=== PATIENT | female | born 1935 | race Caucasian/White ===

== ENCOUNTER → 2017-12-24 09:00 | Outpatient (CLI) | payer MEDICARE, SELFPAY ==
[2017-12-24 10:18] LABS: Erythrocyte Sedimentation Rate 45 mm/hr (0-30)
[2017-12-24 10:21] LABS: Absolute Lymphocyte Count 2.14 X10^3/ul (0.83-4.51); Absolute Neutrophil Count 2.6 X10^3/uL (2.0-7.7); Basophil# 0.02 X10^3/uL; Basophil% 0.4 % (0-1); Eosinophil# 0.08 X10^3/uL; Eosinophils% 1.5 % (0-5); Hematocrit 37.4 % (37-47); Hemoglobin 12.3 g/dl (12.0-15.0); Lymphocyte # 2.14 X10^3/ul (4.0); Lymphocyte % 39.9 % (19-41); Mean Corp Hgb Conc 32.9 g/gl (32-36); Mean Corpuscular Hgb 31.2 pg (27.0-32.0); Mean Corpuscular Volume 94.9 fL (81-99); Mean Platelet Vol. 10.8 fl (6.2-12.0); Monocyte# 0.54 X10^3/uL; Monocyte% 10.1 % (0-10); Neutrophil # 2.57 X10^3/uL (2.7-7.7); Neutrophil % 47.9 % (47-70); POSITIVE COUNT NO; POSITIVE DIFFERENTIAL NO; POSITIVE MORPHOLOGY NO; Platelet Count 207 K/mm3 (150-450); RBC Distribution Width CV 13.9 % (11.6-14.6); RBC Distribution Width SD 46.6 fl (35.1-43.9); Red Blood Count 3.94 M/mm3 (4.2-5.4); White Blood Count 5.4 K/mm3 (4.4-11.0)
[2017-12-24 10:35] LABS: Hemoglobin A1c 6.3 % (4.2-6.3)
[2017-12-24 10:45] LABS: PTHIN 90.8 pg/mL (18.4-80.1)
[2017-12-24 10:48] LABS: AST(SGOT) 18 U/L (15-37); Alanine Aminotransfer ALT/SGPT 21 U/L (13-56); Albumin, Serum 3.7 g/dL (3.2-5.0); Alkaline Phosphatase 112 U/L (45-117); Anion Gap 9 (5-15); BUN 15 mg/dL (7-18); BUN/Creat Ratio 15.8 RATIO (10-20); CRP 5.74 mg/L (0.0-3.0); Calcium,Total 10.2 mg/dL (8.5-10.1); Chloride 108 mmol/L (98-107); Creatinine, Serum 0.95 mg/dL (0.55-1.02); EST Glomerular Filtration Rate 60 mL/min (>60); Est Glom Filt Rate - Afr Amer 72 mL/min (>60); Ferritin 55 ng/mL (8-252); Globulin 3.6 g/dL (2.2-4.2); Glucose 116 mg/dL (74-106); Potassium 4.3 mmol/L (3.5-5.1); Protein, Total 7.3 g/dL (6.4-8.2); Rheumatoid Factor < 10.0 IU/mL (<15); Sodium Level 140 mmol/L (136-145); Uric Acid 5.9 mg/dL (2.6-6.0)
[2017-12-25 15:48] LABS: ANTINUCLEAR ANTIBODIES DIRECT Negative (Negative)
== END ==
PROVIDERS: Family Provider Family Medicine; PCP Family Medicine; Visit Provider Family Medicine
DX: E11.9 Type 2 diabetes mellitus without complications (principal); M19.90 Unspecified osteoarthritis, unspecified site
CPT/HCPCS: 80053; 82728; 83036; 83970; 84550; 85025; 85652; 86038; 86140; 86431

== ENCOUNTER → 2018-02-08 12:44 | Outpatient (CLI) | payer MEDICARE, SELFPAY ==
--- NOTE | 2018-02-08 14:27 | PFTCOMP ---
COMPLETE PULMONARY FUNCTION TEST INTERPRETATION Brief HPI: Patient is an 82 year old female, currently under the care of myself, who presents to [facility] for complete pulmonary function tests secondary to diagnosis of pulmonary hypertension. Respiratory therapist reports good effort and reproducible results. Interpretation: Forced expiration spirometry shows no large airways obstructive ventilatory defect with an FEV1 of 127% predicted. There is no significant bronchodilator response by ATS criteria. Spirograms are of good quality and plateau normally. The respiratory flow volume loop shows a normal pattern. Lung volumes by body plethysmography show a normal total lung capacity at 4.27 L, 122% predicted. All other lung volumes are within normal limits. Diffusion capacity by carbon monoxide is at the lower limit of normal at 71% predicted. The airway resistance is normal. Compared to previous pulmonary function tests from 06/14/2016, there has been no significant change. Impression: These pulmonary function tests are grossly within normal limits. There is no significant change compared to previous.
== END ==
PROVIDERS: Family Provider Family Medicine; PCP Family Medicine; Visit Provider Internal Medicine Critical Care Medicine
DX: I27.20 Pulmonary hypertension, unspecified (principal)
CPT/HCPCS: 94060; 94726; 94729

== ENCOUNTER → 2018-02-11 12:18 | Outpatient (CLI) | payer MEDICARE, SELFPAY ==
[2018-02-11 12:42] VITALS: PULSE 69; PULSE 73; PULSE 79; PULSE 85; PULSE 86; PULSE 88; O2SAT 95; O2SAT 96; O2SAT 98
--- NOTE | 2018-02-12 08:34 | WT_ITS ---
PSN 6 Minute Walk Test - 6 Minute Walk Test 6 Minute Walk Test: 6 Minute Walk Test PSN:6-Minute Walk Test Start: 02/11/18 12: 42 Freq: Status: Active Protocol: RESP.6MINW Document 02/11/18 12:42 SHELLEY (Rec: 02/11/18 12:49 SHELLEY [email or web address]) 6 Minute Walk Test Date Performed 02/11/18 Time Performed 12:30 Height 4 ft 10 in Weight: 190 lb Weight in Pounds 190.[address]: Derick Logan Assistive device used: None Pre-test Oxygen Delivery Method Room Air Pulse Ox (%) 96 Pulse Rate (60-100 beats/min) 69 Dyspnea Tyler Scale (0-10) 0.5 Exertion Tyler Scale (6-20) 6 1st minute Oxygen Delivery Method Room Air Pulse Ox (%) 96 Pulse Rate (60-100 beats/min) 79 2nd minute Oxygen Delivery Method Room Air Pulse Ox (%) 96 Pulse Rate (60-100 beats/min) 85 3rd minute Oxygen Delivery Method Room Air Pulse Ox (%) 96 Pulse Rate (60-100 beats/min) 86 4th minute Oxygen Delivery Method Room Air Pulse Ox (%) 96 Pulse Rate (60-100 beats/min) 86 Number of Rests Taken 1 5th minute Oxygen Delivery Method Room Air Pulse Ox (%) 95 Pulse Rate (60-100 beats/min) 86 6th minute Oxygen Delivery Method Room Air Pulse Ox (%) 96 Pulse Rate (60-100 beats/min) 88 Dyspnea Tyler Scale (0-10) 3 Exertion Tyler Scale (6-20) 13 Post-test Oxygen Delivery Method Room Air Pulse Ox (%) 98 Pulse Rate (60-100 beats/min) 73 Full Laps Walked 12 Partial Lap, Number of Tiles Walked 15 Total Distance Walked (ft) 723 - Interpretation Interpretation: The patient ambulated 723 feet over the course of 6 minutes beginning on room air without assistive devices or breaks. Pretesting oxygen saturation was noted to be 96% on room air. With ambulation, the heike oxygen saturation was 95%. There was no significant exertional oxygen desaturation noted. - Recommendations Recommendations: There is no indication for the use of supplemental oxygen at this time.
== END ==
PROVIDERS: Family Provider Family Medicine; PCP Family Medicine; Visit Provider Internal Medicine Critical Care Medicine
DX: I27.20 Pulmonary hypertension, unspecified (principal)
CPT/HCPCS: 94618

== ENCOUNTER → 2018-04-12 12:37 | Outpatient (CLI) | payer MEDICARE, SELFPAY ==
--- NOTE | 2018-04-12 12:48 | CDU_ITS ---
Reason For Study: CAROTID BRUIT Rt. Velocities/BP Lt. Velocities/BP Prox CCA 45.2/10.6 cm/sec. Prox CCA 62.1/11.4 cm/sec. Mid CCA 39.3/9.43 cm/sec. Mid CCA 52.2/9.82 cm/sec. Dist CCA 40.1/10.6 cm/sec. Dist CCA 40.1/8.64 cm/sec. Prox ICA 43.6/11.8 cm/sec. Prox ICA 85.6/20.5 cm/sec. Mid ICA 56.0/13.5 cm/sec. Mid ICA 72.7/19.3 cm/sec. Dist ICA 96.7/24.0 cm/sec. Dist ICA 84.4/18.8 cm/sec. Rt. ICA/CCA = 96.7/39.3=2.4. Lt. ICA/CCA = 85.6/52.2=1.6. Prox ECA 66.3/8.79 cm/sec. Prox ECA 75.0/7.62 cm/sec. Rt. Vert. 38.1/10.2 cm/sec. Lt. Vert. 28.8/6.19 cm/sec. Right Extracranial There is no significant atherosclerotic plaque noted in the right common carotid artery. There is intimal thickening but no significant atherosclerotic plaque noted in the right internal carotid artery. The tortuous nature of the right internal carotid artery may result in flow velocities overestimating the degree of stenosis. There is no significant atherosclerotic plaque noted in the right external carotid artery. Antegrade flow is noted in the right vertebral artery. There is heterogeneous, irregular atherosclerotic plaque noted in the right bulb. Left Extracranial There is no significant atherosclerotic plaque noted in the left common carotid artery. There is homogeneous, smooth atherosclerotic plaque noted in the left internal carotid artery. The tortuous nature of the left internal carotid artery may result in flow velocities overestimating the degree of stenosis. There is intimal thickening but no significant atherosclerotic plaque noted in the left external carotid artery. Antegrade flow is noted in the left vertebral artery. There is heterogeneous, irregular atherosclerotic plaque noted in the left bulb. Procedure Carotid Duplex [id number]. The exam was diagnostic. Exam performed in department. 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 Moderate calcific plague at the proximal left internal carotid with <50% stenosis. Normal flow bilateral external carotids Patent and antegrade vertebrals bilaterally Ordering Physician: New Martinez Referring Physician: New Martinez Performed By: Caro Woodard, KEVIN, RVT
== END ==
PROVIDERS: Family Provider Family Medicine; PCP Family Medicine; Referring Provider Family Medicine; Visit Provider Family Medicine
DX: R09.89 Other specified symptoms and signs involving the circulatory and respiratory systems (principal)
CPT/HCPCS: 93880

== ENCOUNTER → 2018-07-05 10:13 | Outpatient (CLI) | payer MEDICARE, SELFPAY ==
[2018-02-25 12:29] VITALS: BMI 40.1
[2018-07-05 12:59] LABS: Microalbumin,Random Urine 27.4 mg/L (NO RANGE EST.); Microalbumin:Creatinine Ratio 15.1 mg/g CRE (<30 mg/g CRE)
[2018-07-05 17:32] LABS: Amphetamine Urine VISTA NEGATIVE (<1000 ng/mL); Barbiturate Urine VISTA NEGATIVE (< 200 ng/mL); Benzodiazepine Urine VISTA NEGATIVE (< 200 ng/mL); Cocaine Urine VISTA NEGATIVE (< 300 ng/mL); Ecstacy Urine VISTA NEGATIVE (< 500 ng/mL); Methadone Urine VISTA NEGATIVE (< 300 ng/mL); PCP Urine VISTA NEGATIVE (< 25 ng/mL); THC Urine VISTA NEGATIVE (< 50 ng/mL); Vista UDS pH Range 7
== END ==
PROVIDERS: Family Provider Family Medicine; PCP Family Medicine; Visit Provider Family Medicine
DX: I10 Essential (primary) hypertension (principal); G89.4 Chronic pain syndrome
CPT/HCPCS: 80307; 82043; 82570

== ENCOUNTER → 2018-07-19 12:58 | Outpatient (CLI) | payer MEDICARE, SELFPAY ==
--- NOTE | 2018-07-19 13:02 | CT_ITS ---
STUDY: CT LEFT SHOULDER REASON FOR EXAM: Female, 82 years old. Left shoulder arthritis RADIATION DOSAGE (If Supplied By Facility): CTDIvol = ( 56.99 ) mGy, DLP = ( 1139.21 ) mGycm TECHNIQUE: The patient was scanned in a multi detector CT scanner. High resolution transaxial imaging was performed without the administration of intravenous contrast material. Sagittal and coronal images were reconstructed. Individualized dose optimization techniques were used for this CT. COMPARISON: None. FINDINGS: There is severe osteoarthritis, with severe articular joint space narrowing, osteoarthritic spurring, articular remodeling, and with articular erosions. Subchondral degenerative cysts of the humeral head measure up to 1.0 cm. Subcortical sclerosis and cyst formation of the glenoid also identified with bony remodeling along the inferior margin. No fracture is seen. Normal coracoid process. Normal visualized lateral clavicle. There is severe hypertrophic osteoarthritis with prominent osseous hypertrophy, with a potential for impingement upon the supraspinatus muscle. There are calcifications in the supraspinatus compatible with calcific tendinosis. Intra-articular calcific loose bodies are also identified. The heart is mildly enlarged. CT/Extremity Upper without Contra IMPRESSION: 1. Advanced glenohumeral joint arthrosis with large subchondral cyst formation. Given severity and intra-articular/synovial calcifications/loose bodies, possibility of rheumatoid arthritis should be considered, although this could also represent severe osteoarthritis. 2. Calcific tendinitis of the rotator cuff, particularly supraspinatus. 3. Severe hypertrophic acromioclavicular joint arthrosis. Electronically Signed: Reece Stoner MD at 20:54 EST , Service support ,
--- NOTE | 2018-07-19 13:03 | CT_ITS ---
STUDY: CT RIGHT SHOULDER REASON FOR EXAM: Female, 82 years old. Right shoulder arthritis RADIATION DOSAGE (If Supplied By Facility): CTDIvol = ( 56.31 ) mGy, DLP = ( 1104.66 ) mGycm TECHNIQUE: The patient was scanned in a multi detector CT scanner. High resolution transaxial imaging was performed without the administration of intravenous contrast material. Sagittal and coronal images were reconstructed. Individualized dose optimization techniques were used for this CT. COMPARISON: None. FINDINGS: There is severe osteoarthritis, with severe articular joint space narrowing, osteoarthritic spurring, articular remodeling, and with articular erosions. Subchondral degenerative cysts of the humeral head measures 1.6 cm. Subcortical sclerosis and cyst formation of the glenoid also identified with bony remodeling along the inferior margin. No fracture is seen. Normal coracoid process. Normal visualized lateral clavicle. There is severe hypertrophic osteoarthritis with prominent osseous hypertrophy, with a potential for impingement upon the supraspinatus muscle. There are calcifications in the supraspinatus compatible with calcific tendinosis. Intra-articular calcific loose bodies are also identified. CT/Extremity Upper without Contra IMPRESSION: 1. Advanced glenohumeral joint arthrosis with large subchondral cyst formation. Given severity and intra-articular/synovial calcifications/loose bodies, possibility of rheumatoid arthritis should be considered, although this could also represent severe osteoarthritis. 2. Calcific tendinitis of the rotator cuff, particularly supraspinatus. 3. Severe hypertrophic acromioclavicular joint arthrosis. Electronically Signed: Reece Stoner MD at 20:52 EST , Service support ,
== END ==
PROVIDERS: Family Provider Family Medicine; PCP Family Medicine; Referring Provider Specialist; Visit Provider Specialist
DX: M19.011 Primary osteoarthritis, right shoulder (principal); M19.012 Primary osteoarthritis, left shoulder
CPT/HCPCS: 73200

== ENCOUNTER → 2018-07-31 08:14 | Outpatient (CLI) | payer MEDICARE, SELFPAY ==
[2018-07-31 10:21] LABS: Absolute Lymphocyte Count 1.88 X10^3/ul (0.83-4.51); Absolute Neutrophil Count 2.7 X10^3/uL (2.0-7.7); Basophil# 0.02 X10^3/uL; Basophil% 0.4 % (0-1); Eosinophil# 0.06 X10^3/uL; Eosinophils% 1.1 % (0-5); Hematocrit 39.5 % (37-47); Hemoglobin 12.7 g/dl (12.0-15.0); Lymphocyte # 1.88 X10^3/ul (4.0); Mean Corp Hgb Conc 32.2 g/gl (32-36); Mean Corpuscular Hgb 30.8 pg (27.0-32.0); Mean Corpuscular Volume 95.6 fL (81-99); Mean Platelet Vol. 11.3 fl (6.2-12.0); Monocyte# 0.55 X10^3/uL; Monocyte% 10.5 % (0-10); Neutrophil % 51.8 % (47-70); Platelet Count 207 K/mm3 (150-450); RBC Distribution Width CV 13.7 % (11.6-14.6); RBC Distribution Width SD 45.9 fl (35.1-43.9); Red Blood Count 4.13 M/mm3 (4.2-5.4); White Blood Count 5.2 K/mm3 (4.4-11.0)
[2018-07-31 10:24] LABS: POSITIVE COUNT NO; POSITIVE DIFFERENTIAL NO; POSITIVE MORPHOLOGY NO
[2018-07-31 10:44] LABS: Hemoglobin A1c 6.8 % (4.2-6.3)
[2018-07-31 10:48] LABS: AST(SGOT) 18 U/L (15-37); Alanine Aminotransfer ALT/SGPT 22 U/L (13-56); Albumin, Serum 3.6 g/dL (3.2-5.0); Alkaline Phosphatase 121 U/L (45-117); Anion Gap 6 (5-15); BUN 17 mg/dL (7-18); BUN/Creat Ratio 20.5 RATIO (10-20); Calcium,Total 9.7 mg/dL (8.5-10.1); Chloride 109 mmol/L (98-107); Cholesterol 144 mg/dL (200); Creatinine, Serum 0.83 mg/dL (0.55-1.02); EST Glomerular Filtration Rate 70 mL/min (>60); Est Glom Filt Rate - Afr Amer 85 mL/min (>60); Globulin 3.6 g/dL (2.2-4.2); Glucose 124 mg/dL (74-106); High Density Lipoprotein 51 mg/dL; Potassium 4.3 mmol/L (3.5-5.1); Protein, Total 7.2 g/dL (6.4-8.2); Sodium Level 138 mmol/L (136-145); Triglycerides 170 mg/dL; Very Low Density Lipoprotein 34 mg/dL (5-40)
== END ==
PROVIDERS: Family Provider Family Medicine; PCP Family Medicine; Referring Provider Family Medicine; Visit Provider Family Medicine
DX: E11.9 Type 2 diabetes mellitus without complications (principal); J30.9 Allergic rhinitis, unspecified
CPT/HCPCS: 36415; 80053; 80061; 83036; 85025

== ENCOUNTER → 2018-08-19 13:45 | Outpatient (CLI) | payer MEDICARE, SELFPAY ==
[2018-08-19 16:15] LABS: M R Staph aureus DNA By PCR POSITIVE (Negative); Probe Check PASS; Staph aureus DNA By PCR POSITIVE (Negative)
== END ==
PROVIDERS: Family Provider Family Medicine; PCP Family Medicine; Visit Provider Family Medicine
DX: J34.0 Abscess, furuncle and carbuncle of nose (principal)
CPT/HCPCS: 87640

== ENCOUNTER → 2018-08-29 08:28 | Outpatient (CLI) | payer MEDICARE, SELFPAY ==
[2018-08-29 13:36] LABS: M R Staph aureus DNA By PCR POSITIVE (Negative); Probe Check PASS
== END ==
PROVIDERS: Family Provider Family Medicine; PCP Family Medicine; Referring Provider Family Medicine; Visit Provider Family Medicine
DX: J34.0 Abscess, furuncle and carbuncle of nose (principal); J34.89 Other specified disorders of nose and nasal sinuses
CPT/HCPCS: 87070; 87205; 87641

== ENCOUNTER → 2018-09-09 | Outpatient (CLI) | payer MEDICARE, SELFPAY ==
[2018-09-09 17:15] LABS: M R Staph aureus DNA By PCR Negative (Negative); Probe Check PASS; Specimen Processing Control PASS
== END | disposition home or self-care (01) ==
LOC: MFPLAB 13:36
PROVIDERS: Family Provider Family Medicine; PCP Family Medicine; Visit Provider Family Medicine
DX: A49.02 Methicillin resistant Staphylococcus aureus infection, unspecified site (principal)
CPT/HCPCS: 87641

== ENCOUNTER → 2019-03-05 | Outpatient (CLI) | payer MEDICARE, SELFPAY ==
[2019-02-10 07:58] VITALS: BMI 39.9
[2019-03-05 10:05] LABS: Hematocrit 37.4 % (37-47); Hemoglobin 11.8 g/dL (12.0-15.0); Mean Corp Hgb Conc 31.6 g/dL (32-36); Mean Corpuscular Hgb 29.6 pg (27.0-32.0); Mean Corpuscular Volume 93.7 fL (81-99); Mean Platelet Vol. 10.5 fl (6.2-12.0); Platelet Count 204 K/mm3 (150-450); RBC Distribution Width CV 14.4 % (11.6-14.6); RBC Distribution Width SD 49.8 fl (35.1-43.9); Red Blood Count 3.99 M/mm3 (4.2-5.4)
[2019-03-05 10:20] LABS: AST(SGOT) 18 U/L (15-37); Alanine Aminotransfer ALT/SGPT 23 U/L (13-56); Albumin, Serum 3.5 g/dL (3.2-5.0); Alkaline Phosphatase 133 U/L (45-117); Anion Gap 9 (5-15); BUN 23 mg/dL (7-18); BUN/Creat Ratio 27.7 RATIO (10-20); Calcium,Total 10.1 mg/dL (8.5-10.1); Chloride 109 mmol/L (98-107); Creatinine, Serum 0.83 mg/dL (0.55-1.02); EST Glomerular Filtration Rate 70 mL/min (>60); Est Glom Filt Rate - Afr Amer 84 mL/min (>60); Globulin 3.5 g/dL (2.2-4.2); Glucose 150 mg/dL (74-106); Potassium 4.2 mmol/L (3.5-5.1); Sodium Level 142 mmol/L (136-145)
== END | disposition home or self-care (01) ==
LOC: MFPLAB 08:38
PROVIDERS: Family Provider Family Medicine; PCP Family Medicine; Visit Provider Family Medicine
DX: Z01.818 Encounter for other preprocedural examination (principal); E11.9 Type 2 diabetes mellitus without complications
CPT/HCPCS: 36415; 80053; 84443; 85027

== ENCOUNTER → 2019-04-11 | Outpatient (CLI) | payer MEDICARE, SELFPAY ==
[2019-02-10 07:58] VITALS: BMI 39.9
[2019-04-16 11:46] LABS: Egg, White 0.77 kU/L (Class II); Egg, Yolk 0.14 kU/L (Class 0/I)
== END | disposition home or self-care (01) ==
LOC: MTLAB 14:36
PROVIDERS: Family Provider Family Medicine; PCP Family Medicine; Referring Provider Otolaryngology Otolaryngology/Facial Plastic Surgery; Visit Provider Otolaryngology Otolaryngology/Facial Plastic Surgery
DX: T78.40XA Allergy, unspecified, initial encounter (principal)
CPT/HCPCS: 36415; 86003

== ENCOUNTER → 2019-06-02 14:20 | Outpatient (CLI) | payer MEDICARE, SELFPAY ==
[2019-06-02 13:21] VITALS: BMI 39.6
== END ==
PROVIDERS: Family Provider Family Medicine; PCP Family Medicine; Referring Provider Nurse Practitioner Acute Care; Visit Provider Nurse Practitioner Acute Care
DX: J18.9 Pneumonia, unspecified organism (principal)
CPT/HCPCS: 87070; 87077; 87205

== ENCOUNTER → 2019-06-23 12:27 | Outpatient (CLI) | payer MEDICARE, SELFPAY ==
[2019-06-02 13:21] VITALS: BMI 39.6
--- NOTE | 2019-06-23 12:28 | ECHOCS_ITS ---
Reason For Study: PHTN Procedure This was a 2D Doppler, Color Flow transthoracic echocardiogram. The study was technically difficult. Contrast injection was performed. Exam performed in department. Left Ventricle Normal LV size. Mild concentric left ventricular hypertrophy. Left ventricular systolic function is normal. The estimated ejection fraction is 60 %. No regional wall motion abnormalities noted. Right Ventricle Normal RV size. Normal systolic function. Atria Normal left atrium. Normal right atrium. Mitral Valve Normal mitral valve. Tricuspid Valve Normal tricuspid valve. Mild (1+) tricuspid valve insufficiency. Pulmonary artery systolic pressure is 28 mmHg. Aortic Valve Peak aortic valve gradient 48 mmHg. Mean aortic valve gradient 17 mmHg. Pulmonic Valve Normal pulmonic valve. Great Vessels Normal aortic root. The pulmonary artery is normal size. Normal inferior vena cava. Pericardium/Pleural No pericardial effusion. Medication 22 gauge I.V. with prn adaptor inserted into left arm. Diluted definity 2ml given slow IV push to enhance endocardial definition. MMode/2D Measurements & Calculations LVIDd: 4.6 cm IVSd: 1.2 cm LVOT diam: 2.0 cm LVIDs: 2.5 cm LVPWd: 1.2 cm FS: 45.3 % LVOT area: 3.1 cm2 LA dimension: 4.4 cm LAV(MOD-sp4): 33.3 ml LA A4 area: 15.2 cm2 RA A4 area: 17.1 cm2 Time Measurements MV dec time: 0.26 sec Doppler Measurements & Calculations MV E max jensen: 73.7 cm/sec Lat Peak E' Jensen: 6.6 cm/sec Med Peak E' Jensen: 7.2 cm/sec MV A max jensen: 87.1 cm/sec E/E' lat: 11.1 E/E' med: 10.2 MV E/A: 0.85 MV V2 max: 111.7 cm/sec MV P1/2t max jensen: 111.7 cm/sec Ao V2 max: 346.4 cm/sec MV max P.0 mmHg MV P1/2t: 67.3 msec Ao max P.0 mmHg MV V2 mean: 53.0 cm/sec MV dec slope: 486.4 cm/sec2 Ao V2 mean: 175.2 cm/sec MV mean P.4 mmHg Ao mean P.8 mmHg MV V2 VTI: 40.1 cm MVA(P1/2t): 3.3 cm2 Ao V2 VTI: 83.5 cm MVA(VTI): 2.4 cm2 HERBERT(I,D): 1.1 cm2 HERBERT(V,D): 1.1 cm2 AI max jensen: 383.1 cm/sec LV V1 max: 118.4 cm/sec SV(LVOT): 95.2 ml AI max P.7 mmHg LV V1 max P.6 mmHg AI dec slope: 133.8 cm/sec2 LV V1 mean P.7 mmHg AI P1/2t: 838.6 msec LV V1 mean: 76.6 cm/sec LV V1 VTI: 30.3 cm PA V2 max: 84.7 cm/sec TR max jensen: 247.9 cm/sec TR max P.6 mmHg Interpretation Summary Normal LV size. Mild concentric left ventricular hypertrophy. Left ventricular systolic function is normal. The estimated ejection fraction is 60 %. Mild (1+) tricuspid valve insufficiency. Contrast injection was performed. Ordering Physician: Derick Logan Referring Physician: New Martinez Performed By: Bridger Skelton RCS
== END ==
PROVIDERS: Family Provider Family Medicine; PCP Family Medicine; Referring Provider Internal Medicine Critical Care Medicine; Visit Provider Internal Medicine Critical Care Medicine
DX: I27.20 Pulmonary hypertension, unspecified (principal); G47.33 Obstructive sleep apnea (adult) (pediatric); J47.9 Bronchiectasis, uncomplicated; E66.01 Morbid (severe) obesity due to excess calories; Z98.890 Other specified postprocedural states
CPT/HCPCS: 93306; Q9957; A4216; C8929

== ENCOUNTER → 2019-08-05 | Outpatient (CLI) | payer MEDICARE, SELFPAY ==
[2019-08-05 11:17] VITALS: BMI 39.6
--- NOTE | 2019-08-05 12:15 | EKG12_ITS ---
Test Reason : CHEST DISCOMFORT Blood Pressure : / mmHG Vent. Rate : 071 BPM Atrial Rate : 071 BPM P-R Int : 188 ms QRS Dur : 078 ms QT Int : 372 ms P-R-T Axes : 076 032 032 degrees QTc Int : 404 ms Normal sinus rhythm Low voltage QRS Nonspecific ST Abnormality Abnormal ECG Confirmed by CEDRIC ZAMORA, TYLER ([id number]), editor house organ MARIE GALARZA ([id number]) on 08/06/2019 1:42:22 PM Referred By: Chica Morataya Confirmed By:TYLER STEELE MD
--- NOTE | 2019-08-05 12:15 | RAD_ITS ---
HISTORY: CHEST DISCOMFORT, PT STATES PRESSURE FOR A FEW SECONDS AT A TIME BILATERAL, TAKES HBP MEDICATION ADDITIONAL HISTORY: None provided. COMPARISON: 12/01/2014 TECHNIQUE: Frontal and lateral chest radiographs. Number of images including paperwork: 2 FINDINGS: LUNGS AND PLEURA: No consolidation, mass or pleural effusion. Linear bilateral opacities appear similar consistent with scarring. CARDIAC SILHOUETTE: Stable. MEDIASTINUM AND MIGUEL: Stable. UPPER ABDOMEN: Unremarkable. SKELETON AND SOFT TISSUES: No acute findings. Degenerative changes. OTHER DEVICES AND HARDWARE: Partially visualized lumbar hardware and bilateral shoulder prostheses. RAD/Chest PA and Lateral IMPRESSION: No acute cardiopulmonary abnormality. at 0329 Reported and signed by: Radhika Velazquez MD Electronically Signed: Radhika Velazquez MD at 3:29 EST Tel , Service support ,
[2019-08-05 13:33] LABS: BNP,B-Type NATRIURETIC PEPTIDE 77.2 pg/mL (0-100)
[2019-08-05 13:48] LABS: Anion Gap 4 (5-15); BUN 30 mg/dL (7-18); Calcium,Total 10.2 mg/dL (8.5-10.1); Chloride 113 mmol/L (98-107); Creatinine, Serum 0.94 mg/dL (0.55-1.02); EST Glomerular Filtration Rate 60 mL/min (>60); Est Glom Filt Rate - Afr Amer 73 mL/min (>60); Ferritin 48 ng/mL (8-252); Glucose 114 mg/dL (74-106); Potassium 4.4 mmol/L (3.5-5.1); Sodium Level 141 mmol/L (136-145)
[2019-08-05 20:32] LABS: Vitamin B12 > 2000 pg/mL (211-911)
== END | disposition home or self-care (01) ==
LOC: LAB 12:15
PROVIDERS: PCP Family Medicine; Referring Provider Nurse Practitioner Acute Care; Visit Provider Nurse Practitioner Acute Care
DX: D64.9 Anemia, unspecified (principal); I50.9 Heart failure, unspecified; R07.89 Other chest pain
CPT/HCPCS: 36415; 71046; 80048; 82607; 82728; 82746; 83880; 93005

== ENCOUNTER → 2019-08-07 | Outpatient (CLI) | payer MEDICARE, SELFPAY ==
[2019-05-27 06:34] VITALS: BMI 39.6
[2019-08-05 11:17] VITALS: BMI 39.6
--- NOTE | 2019-08-07 15:42 | PFTCOMP ---
COMPLETE PULMONARY FUNCTION TEST INTERPRETATION Brief HPI: Patient is an 83 year old female, currently under the care of myself, who presents to [facility] for complete pulmonary function tests secondary to diagnosis of pulmonary hypertension. Respiratory therapist reports good effort and reproducible results. Interpretation: Forced expiration spirometry shows no large airways obstructive ventilatory defect with an FEV1 of 113% predicted. There is a significant bronchodilator response by strict ATS criteria. Spirograms are of good quality and plateau normally. The respiratory flow volume loop shows a normal pattern. Lung volumes by body plethysmography show a normal total lung capacity at 4.3 L, 113% predicted. All other lung volumes are within normal limits. Diffusion capacity by carbon monoxide is normal at 74% predicted. The airway resistance is normal. Compared to previous pulmonary function tests from 02/08/2018, there has been no significant change. Impression: These pulmonary function tests are grossly within normal limits. However, DLCO is at the lower limit of normal and may indicate early pulmonary vascular disorder.
== END | disposition home or self-care (01) ==
LOC: PSN 12:33
PROVIDERS: Family Provider Family Medicine; PCP Family Medicine; Referring Provider Internal Medicine Critical Care Medicine; Visit Provider Internal Medicine Critical Care Medicine
DX: G47.33 Obstructive sleep apnea (adult) (pediatric) (principal); J47.9 Bronchiectasis, uncomplicated; E66.01 Morbid (severe) obesity due to excess calories
CPT/HCPCS: 94060; 94726; 94729

== ENCOUNTER → 2019-11-10 10:19 | Outpatient (CLI) | payer MEDICARE, SELFPAY ==
[2019-11-04 13:42] VITALS: BMI 39.9
--- NOTE | 2019-11-10 10:20 | STEWCON_ITS ---
Reason For Study: Valve Replacement-Eval Stress Results Protocol: Modified Derick Protocol With Definity Maximum Predicted HR: 136 bpm Target HR: 116 bpm % Maximum Predicted HR: 90 % DurationHeart Rate Stage (mm:ss) (bpm) BP Comment Baseline 64 140/70No Chest Pain; 2 ML Diluted Definity Modified Derick Protocol Stage 0 1:51 123 236/74No Chest Pain; Severe Dyspnea Recovery 75 138/72No Chest Pain; No Dyspnea Stress Duration: 1:51 mm:ss Maximum Stress HR: 123 bpm METS: 2 Baseline Echocardiogram Findings The estimated ejection fraction is 65 %. Stress Echo Wall motion Data Resting WM Intermediate WM Stress WM Resting Wall Motion Wall Motion Stress No regional wall motion No regional wall motion abnormalities noted. abnormalities noted. EKG Data The baseline ECG displays normal sinus rhythm. The maximum heart rate attained was 121 beats per minute. This was 90% of maximum predicted heart rate. During stress, there were no ST or T wave changes noted to suggest ischemia. No clinical angina was noted. No arrhythmias noted. MMode/2D Measurements & Calculations LVOT diam: 2.1 cm LVOT area: 3.3 cm2 Doppler Measurements & Calculations Ao V2 max: 390.2 cm/sec LV V1 max: 126.0 cm/sec SV(LVOT): 104.8 ml Ao max P.1 mmHg LV V1 max P.4 mmHg Ao V2 mean: 293.3 cm/sec LV V1 mean P.4 mmHg Ao mean P.8 mmHg LV V1 mean: 85.7 cm/sec Ao V2 VTI: 86.7 cm LV V1 VTI: 31.7 cm HERBERT(I,D): 1.2 cm2 HERBERT(V,D): 1.1 cm2 Interpretation Summary The estimated ejection fraction is 65 %. Normal, adequate, modified Derick treadmill echocardiogram. Negative for ischemia by EKG and echocardiographic criteria. No anginal symptoms noted. No arrhythmias noted. Hypertensive blood pressure response to exercise. Poor exercise capacity for age. Patient had baseline peak and mean aortic valve gradient of 45/26 mmHg, which increased to 79/53 mmHg respectively at peak exercise. Test terminated due to dyspnea. Final LVEF is 75%. Decrease sensitivity due to poor echo windows requiring Definity agent. No complications. The study was technically difficult. Contrast injection was performed. Ordering Physician: Chuck Grayson Referring Physician: New Martinez Performed By: Amirah Menjivar RDCS
== END ==
PROVIDERS: PCP Family Medicine; Referring Provider Internal Medicine Cardiovascular Disease; Visit Provider Internal Medicine Cardiovascular Disease
DX: R01.1 Cardiac murmur, unspecified (principal); I27.20 Pulmonary hypertension, unspecified; R06.00 Dyspnea, unspecified
CPT/HCPCS: 93017; 93350; Q9957; A4216; C8928

== ENCOUNTER 2019-12-31 09:56 | Outpatient (CLI) | payer MEDICARE, SELFPAY ==
[2019-11-04 13:42] VITALS: BMI 39.9
--- NOTE | 2019-12-18 08:30 | RAD_ITS ---
STUDY: X-RAY CHEST REASON FOR EXAM: Female, 84 years old. CARDIAC MURMUR, SOB, WEAKNESS -- HAVING HEART CATH NEXT WEEK TECHNIQUE: PA and lateral views of the chest. COMPARISON: Comparison is made with prior examination dated August 05, 2019. FINDINGS: Stable linear density in the left midlung suggestive of scarring. There is no demonstrated pleural abnormality. Normal size heart. Normal mediastinum and rene. Normal visualized pulmonary arteries. There is atherosclerotic tortuosity of the aortic arch and descending thoracic aorta. There are diffuse degenerative changes of the visualized thoracic spine. Status post screw and blair fixation of the upper lumbar spine. Status post bilateral shoulder replacement. There is no demonstrated abnormality of the visualized soft tissue structures of the upper abdomen. RAD/Chest PA and Lateral IMPRESSION: No acute abnormality is seen. Electronically Signed: Saúl Gaitan, at 11:17 EDT , Service support ,
[2019-12-18 08:57] LABS: Absolute Lymphocyte Count 1.97 X10^3/uL (0.83-4.51); Absolute Neutrophil Count 2.8 X10^3/uL (2.0-7.7); Basophil# 0.05 X10^3/uL; Basophil% 0.9 % (0-1); Eosinophil# 0.07 X10^3/uL; Eosinophils% 1.3 % (0-5); Hematocrit 38.1 % (37-47); Hemoglobin 12.2 g/dL (12.0-15.0); Lymphocyte # 1.97 X10^3/ul (4.0); Lymphocyte % 35.6 % (19-41); Mean Corpuscular Hgb 29.8 pg (27.0-32.0); Mean Corpuscular Volume 92.9 fL (81-99); Mean Platelet Vol. 10.8 fl (6.2-12.0); Monocyte# 0.62 X10^3/uL; Monocyte% 11.2 % (0-10); NRBC Flagged by Analyzer 0 % (0-5); Neutrophil % 50.6 % (47-70); Platelet Count 231 K/mm3 (150-450); RBC Distribution Width CV 13.2 % (11.6-14.6); RBC Distribution Width SD 45.1 fl (35.1-43.9); White Blood Count 5.5 K/mm3 (4.4-11.0)
[2019-12-18 09:17] LABS: International Normalized Ratio 1.1; Prothrombin Time (Protime)PT. 14.1 SECONDS (11.7-14.9)
[2019-12-18 09:40] LABS: AST(SGOT) 21 U/L (15-37); Alanine Aminotransfer ALT/SGPT 22 U/L (13-56); Albumin, Serum 3.8 g/dL (3.2-5.0); Alkaline Phosphatase 138 U/L (45-117); Anion Gap 7 (5-15); BUN 34 mg/dL (7-18); BUN/Creat Ratio 34.6 RATIO (10-20); Bilirubin, Direct 0.15 mg/dL (0.00-0.30); Calcium,Total 10.1 mg/dL (8.5-10.1); Chloride 108 mmol/L (98-107); Cholesterol 160 mg/dL (200); Creatinine, Serum 0.98 mg/dL (0.55-1.02); EST Glomerular Filtration Rate 57 mL/min (>60); Est Glom Filt Rate - Afr Amer 69 mL/min (>60); Globulin 3.5 g/dL (2.2-4.2); Glucose 144 mg/dL (74-106); High Density Lipoprotein 52 mg/dL; Potassium 4.2 mmol/L (3.5-5.1); Protein, Total 7.3 g/dL (6.4-8.2); Sodium Level 138 mmol/L (136-145); Triglycerides 179 mg/dL; Very Low Density Lipoprotein 36 mg/dL (5-40)
[2019-12-25 11:14] VITALS: BMI 39.9
--- NOTE | 2019-12-26 12:40 | PCM.HP.BLA ---
History and Physical Date of Admission: 12/31/19 [facility] History of Present Illness Details: Mrs. Hayes is a very pleasant 84-year-old female with a history of pulmonary hypertension, hypertension, obstructive sleep apnea currently on BiPAP, diabetes, obesity, carotid artery disease, referred to our office from Dr. Logan for cardiac murmur. To evaluate this murmur she underwent a 2D echocardiogram dated 06/23/2019 which showed the following results: Normal LV size. Mild concentric left ventricular hypertrophy. Left ventricular systolic function is normal. The estimated ejection fraction is 60 %. Mild (1+) tricuspid valve insufficiency. Contrast injection was performed. RVSP of 30 mmHg. Aortic peak and mean gradient of 48 and 17 mmHg respectively given an estimated aortic valve area of 1.1 cm? consistent with at least moderate aortic stenosis. A previous echocardiogram dated 08/29/2016 showed an EF of 65%, mild MR, RVSP of 36 mmHg, and a peak/mean gradient across the aortic valve of 22 and 13 mmHg given an estimated aortic valve area of 1.7 cm?. On further history, the patient has known about a murmur for many years, but has had progressively worsening dyspnea on exertion and shortness of breath particularly in humid days over the last 1 to 2 years. The patient states that she can no longer walk 1 block or 2 flights of stairs without getting profoundly short of breath. She has had no sentinel events of lightheadedness, dizziness, presyncope or syncope. She underwent pulmonary function test on 08/07/2019 which are as follows: These pulmonary function tests are grossly within normal limits. However, DLCO is at the lower limit of normal and may indicate early pulmonary vascular disorder. She continues with dyspnea on exertion, fatigue, and fleeting, zip chest pain. She denies arm, jaw, or neck discomfort. Her exercise tolerance is stable. She denies symptoms of palpitations, lightheadedness, dizziness, near syncope, or syncopal episodes. She denies edema or claudication issues. She denies orthopnea, PND, fever, chills, blood in urine, blood in stool, or myalgia. Intake Vital Signs 12/25/19 Height 4 ft 10 in 12/25/19 Weight: 155 lb 12/25/19 BMI 32.3 12/25/19 BP 142/62 H 07/23/20 Blood Pressure Location Lt brachial 12/25/19 Position Sitting 12/25/19 Respiration 16 12/25/19 Pulse 74 12/25/19 Pulse Source Auscultation Intake Visit Reasons: CONRAD/RHC/LHC Allergies codeine Allergy (Verified 09/03/19 12:09) Unknown egg Allergy (Verified 09/03/19 12:09) Food Allergy lactose Allergy (Verified 09/03/19 12:09) Food Allergy nitrofurantoin macrocrystalline [From Macrodantin] Allergy (Verified 09/03/19 12:09) Unknown Sulfa (Sulfonamide Antibiotics) Allergy (Verified 09/03/19 12:09) Rash Tetracyclines Allergy (Verified 09/03/19 12:09) Anaphylaxis Penicillins Adverse Reaction (Verified 09/03/19 12:09) Other Medications Eplerenone 25 mg PO BID 07/06/15 [History Confirmed 12/25/19] Losartan Potassium [Cozaar] 50 mg PO BID 07/06/15 [History Confirmed 12/25/19] Loratadine [Claritin] 10 mg PO DAILY 08/17/15 [History Confirmed 12/25/19] Acetaminophen [Tylenol Tablet] 650 mg PO Q6H PRN PRN #0 tab 08/25/15 [Rx Confirmed 12/25/19] hydrALAZINE [Apresoline] 25 mg PO TID #90 tab 08/25/15 [Rx Confirmed 12/25/19] Lactobacillus acidophilus 100 million cell capsule 100 mg PO QDAY 09/06/17 [History Confirmed 12/25/19] carboxymethylcellulose sodium 0.5 % eye drops 1 drp OPHTHALMIC QDAY PRN ml 09/06/17 [History Confirmed 12/25/19] gabapentin 300 mg capsule 600 mg PO QHS cap 09/06/17 [History Confirmed 12/25/19] metformin 500 mg tablet 500 mg PO QDAY tab 09/06/17 [History Confirmed 12/25/19] vit A,C and W-uzicre-pnypljpt 1,000 unit-C 200 mg-E 60 unit-lutein 2 mg and minerals tablet 1 tab PO BID 09/06/17 [History Confirmed 12/25/19] albuterol sulfate 90 mcg/actuation aerosol inhaler 2 puff INHALATION Q4H PRN #18 g 02/25/18 [Rx Confirmed 12/25/19] cholecalciferol (vitamin D3) 50 mcg (2,000 unit) capsule 2,000 unit PO TID cap 02/25/18 [History Confirmed 12/25/19] magnesium 250 mg tablet 250 mg PO DAILY 02/25/18 [History Confirmed 12/25/19] mecobalamin (vitamin B12) 1,000 mcg disintegrating tablet,sublingual 1,000 mcg SUBLINGUAL DAILY 02/25/18 [History Confirmed 12/25/19] mupirocin 2 % topical ointment 1 applic TOPICAL TID 08/20/18 [History Confirmed 12/25/19] amlodipine 5 mg tablet 5 mg PO DAILY 11/04/19 [History Confirmed 12/25/19] aspirin 81 mg tablet,delayed release 81 mg PO DAILY 11/04/19 [History Confirmed 12/25/19] furosemide 20 mg tablet 40 mg PO DAILY tab 11/04/19 [History Confirmed 12/25/19] melatonin 5 mg capsule 5 mg PO QHS cap 11/04/19 [History Confirmed 12/25/19] metoprolol succinate 100 mg tablet,extended release 24 hr 100 mg PO DAILY 11/04/19 [History Confirmed 12/25/19] PFSH Social History (Updated 12/25/19 @ 13:05 by ROBIN Shaw) Smoking Status: Never smoker second hand exposure: No alcohol intake: never substance use type: does not use caffeine: Yes what type of physical activity do you participate in: none ROS Const Const: Positive for fatigue; negative for weakness, body ache, fever(s) or chills ENT ENT: Negative for dizziness Cardio Chest Pain: Yes Palpitations: No Edema: Bilateral Muscle aches with walking: None Resp Respiratory: Positive for SOB with activity; negative for SOB at rest, SOB orthopnea\SOB lying down or paroxysmal nocturnal dyspnea GI GI: Negative nausea, vomiting blood/hematemesis, bright, red blood in stools or black,tarry stools : Negative for hematuria or frequent nighttime urination/ nocturia Musc Musc: Negative for muscle aches/ myalgia Skin Skin: Negative non-healing lesions or rash Neuro Neuro: Negative for dizziness, lightheadedness, near syncope, syncope, orthostatic symptoms or weakness Endo Endo: Positive for fatigue Allergy Allergy/Immunology: Negative for rash Cardiology Exam Const Appearance: cooperative, healthy appearing, comfortable and no acute distress Nutritional Appearance: well nourished and obese Orientation: alert, awake and oriented x3 Head Head: normal to inspection Ears: hearing grossly normal bilaterally Nose: external nose normal Face and Sinus: face symmetric Mouth: oral mucosae normal Eyes General: appearance normal, both eyes and all related structures Eyelids: eyelids normal EOM: EOM intact bilaterally Neck Neck: normal visual inspection and no JVD Carotids: normal carotid upstroke Chest Chest inspection: normal inspection of the chest, symmetric chest movement and normal respiratory effort; negative cough Auscultation: Bilateral: Clear to Auscultation Cardio Rate: regular rate Rhythm: regular rhythm Heart sounds: S1 normal, S2 normal and murmur; negative rub or gallop Murmur: Grade 2/6 and RLSB GI GI: normal to inspection and obese Neuro General: alert, awake, oriented x3 and CN's II-XI intact bilaterally Skin Skin: no rashes or lesions noted Extremities Pulses: Normal: Right Posterior Tibial Pulse, Left Posterior Tibial Pulse, Right Radial Pulse, Left Radial Pulse Lower Extremity Edema: None: Bilateral Psych Psychological: normal affect Assessment & Plan 1. Nonrheumatic aortic (valve) stenosis I35.0 Plan Her most recent echocardiogram from 06/23/2019 showed peak aortic valve gradient of 48 mmHg, mean aortic valve gradient of 17 mmHg, and aortic valve area 1.1 cm?. Given patient's ongoing symptoms, it was recommended she undergo a transesophageal echocardiogram to evaluate valve in more detail. Based on results, further recommendation be made. Patient will proceed with left heart catheterization to define coronary artery anatomy to ultimately guide long-term valvular treatment which may include open heart approach or TAVR, depending on results. 2. Pulmonary HTN I27.20 Plan She will proceed with a right heart cath to further assess pulmonary hypertension. Based on results, further recommendation to be made. 3. Hypertension I10 Plan Her blood pressure slightly elevated. This is improved compared to previous. This will need to be addressed based on test results and long-term recommendation. Adjustments may include increasing amlodipine or or hydralazine. 4. Dyspnea on exertion R06.00 Plan This is 1 of her main concern. Is difficult to discern if this is related to underlying aortic valve disease, pulmonary hypertension, or coronary artery disease. She will proceed with testing which will include, transesophageal echocardiogram, right heart catheterization, and left heart catheterization to assess further. Based on results, further recommendation will be made. She was asked to continue with current medical therapy in the interim which includes amlodipine and Lasix. 5. Chest pain, unspecified type R07.9 Plan Her EKG on 12/25/2019 in office showed sinus rhythm at a rate of 61 bpm QTC of [address] or T wave changes. She does describe a fleeting, zip chest discomfort. This is located on both right and left side of her chest. The etiology of this discomfort is unclear. She will proceed with left heart catheterization to assess coronary artery disease component. Additional Comments Thank you for allowing us to participate in the patients plan of care, if you have any questions please do not hesitate to call. This note was generated using a voice recognition system and there may be incorrect words, spelling or punctuation that were not noted when reviewing the office note prior to saving. 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 Moderate calcific plague at the proximal left internal carotid with <50% stenosis. Normal flow bilateral external carotids Patent and antegrade vertebrals bilaterally Echocardiogram 06/23/2019: Interpretation Summary Normal LV size. Mild concentric left ventricular hypertrophy. Left ventricular systolic function is normal. The estimated ejection fraction is 60 %. Mild (1+) tricuspid valve insufficiency. Contrast injection was performed. Stress Echocardiogram 11/10/2019: Interpretation Summary The estimated ejection fraction is 65 %. Normal, adequate, modified Derick treadmill echocardiogram. Negative for ischemia by EKG and echocardiographic criteria. No anginal symptoms noted. No arrhythmias noted. Hypertensive blood pressure response to exercise. Poor exercise capacity for age. Patient had baseline peak and mean aortic valve gradient of 45/26 mmHg, which increased to 79/53 mmHg respectively at peak exercise. Test terminated due to dyspnea. Final LVEF is 75%. Decrease sensitivity due to poor echo windows requiring Definity agent. No complications. The study was technically difficult. Contrast injection was performed. Procedure Criteria Procedure Type: Elective COVID Risk Discussion: The surgeon/proceduralist and patient have discussed in detail the risk of exposure to and/or potential harm posed by the COVID-19 virus with having a surgery/procedure at this time versus the risk of delaying the surgery/procedure. It is not possible to know either the risk of delaying the surgery or procedure or chance of getting an infection with perfect accuracy, but a joint decision was made between the patient and the surgeon/proceduralist to proceed at this time with the scheduled surgery/procedure as indicated on the consent form.
[2019-12-30 10:07] VITALS: BMI 32.3
[2019-12-31 11:56] LABS: Blood Gas Specimen Type VEN; VBG BASE EXCESS 2 mmol/L (-1.0-3.5); VBG Bicarbonate 28 mmol/L (22-26); VBG Oxygen Content 29 mmol/L (23-33); VBG PO2 32 mmHg (25-40); VBG PO2 34 mmHg (25-40); VBG SO2 58 % (50-70); VBG SO2 62 % (50-70); VBG pCO2 48.8 mmHg (41-51); VBG pCO2 49.5 mmHg (41-51); VBG pH 7.35 (7.32-7.42); VBG pH 7.36 (7.32-7.42)
[2019-12-31 12:06] LABS: Base Excess -1 mmol/L (-2 to +2); Bicarbonate 25.5 mmol/L (22-26); Blood Gas Specimen Type ART; PO2 61 mmHG (75-100); SO2 89 % (95-99); Total Carbon Dioxide 27 mmol/L; pH 7.32 (7.35-7.45)
--- NOTE | 2019-12-31 12:08 | HP.PCM_ITS ---
Problem List (1) Hypertensive urgency Status: Acute (2) Murmur, cardiac Status: Acute (3) Post-operative infection Status: Acute Qualifiers: Encounter type: initial encounter (4) Obstructive sleep apnea Status: Chronic (5) Pulmonary HTN Status: Chronic History and Physical Date of Admission: 12/31/19 [facility] Medical Records Department [address] [place] [address] History and Physical 12/26/19 1240 MR#: [id number] Acct: [id number] Name: LASHAE HARRIS Rep #:[id number] : 1935 84 From: Dell HAQUE C PCP: Dr. New Martinez MD Status:PRE CLI Y Location: [facility] History and Physical Date of Admission: 12/31/19 HPI HPI History of Present Illness Details: Mrs. Harris is a very pleasant 84-year-old female with a history of pulmonary hypertension, hypertension, obstructive sleep apnea currently on BiPAP, diabetes, obesity, carotid artery disease, referred to our office from Dr. Logan for cardiac murmur. To evaluate this murmur she underwent a 2D echocardiogram dated 06/23/2019 which showed the following results: Normal LV size. Mild concentric left ventricular hypertrophy. Left ventricular systolic function is normal. The estimated ejection fraction is 60 %. Mild (1+) tricuspid valve insufficiency. Contrast injection was performed. RVSP of 30 mmHg. Aortic peak and mean gradient of 48 and 17 mmHg respectively given an estimated aortic valve area of 1.1 cm? consistent with at least moderate aortic stenosis. A previous echocardiogram dated 08/29/2016 showed an EF of 65%, mild MR, RVSP of 36 mmHg, and a peak/mean gradient across the aortic valve of 22 and 13 mmHg given an estimated aortic valve area of 1.7 cm?. On further history, the patient has known about a murmur for many years, but has had progressively worsening dyspnea on exertion and shortness of breath particularly in humid days over the last 1 to 2 years. The patient states that she can no longer walk 1 block or 2 flights of stairs without getting profoundly short of breath. She has had no sentinel events of lightheadedness, dizziness, presyncope or syncope. She underwent pulmonary function test on 08/07/2019 which are as follows: These pulmonary function tests are grossly within normal limits. However, DLCO is at the lower limit of normal and may indicate early pulmonary vascular disorder. She continues with dyspnea on exertion, fatigue, and fleeting, zip chest pain. She denies arm, jaw, or neck discomfort. Her exercise tolerance is stable. She denies symptoms of palpitations, lightheadedness, dizziness, near syncope, or syncopal episodes. She denies edema or claudication issues. She denies orthopnea, PND, fever, chills, blood in urine, blood in stool, or myalgia. Intake Vital Signs 12/25/19 Height 4 ft 10 in 12/25/19 Weight: 155 lb 12/25/19 BMI 32.3 12/25/19 BP 142/62 H 12/25/19 Blood Pressure Location Lt brachial 12/25/19 Position Sitting 12/25/19 Respiration 16 12/25/19 Pulse 74 12/25/19 Pulse Source Auscultation Intake Visit Reasons: CONRAD/RHC/LHC Allergies codeine Allergy (Verified 09/03/19 12:09) Unknown egg Allergy (Verified 09/03/19 12:09) Food Allergy lactose Allergy (Verified 09/03/19 12:09) Food Allergy nitrofurantoin macrocrystalline [From Macrodantin] Allergy (Verified 09/03/19 12:09) Unknown Sulfa (Sulfonamide Antibiotics) Allergy (Verified 09/03/19 12:09) Rash Tetracyclines Allergy (Verified 09/03/19 12:09) Anaphylaxis Penicillins Adverse Reaction (Verified 09/03/19 12:09) Other Medications Eplerenone 25 mg PO BID 07/06/15 [History Confirmed 12/25/19] Losartan Potassium [Cozaar] 50 mg PO BID 07/06/15 [History Confirmed 12/25/19] Loratadine [Claritin] 10 mg PO DAILY 08/17/15 [History Confirmed 12/25/19] Acetaminophen [Tylenol Tablet] 650 mg PO Q6H PRN PRN #0 tab 08/25/15 [Rx Confirmed 12/25/19] hydrALAZINE [Apresoline] 25 mg PO TID #90 tab 08/25/15 [Rx Confirmed 12/25/19] Lactobacillus acidophilus 100 million cell capsule 100 mg PO QDAY 09/06/17 [History Confirmed 12/25/19] carboxymethylcellulose sodium 0.5 % eye drops 1 drp OPHTHALMIC QDAY PRN ml 09/06/17 [History Confirmed 12/25/19] gabapentin 300 mg capsule 600 mg PO QHS cap 09/06/17 [History Confirmed 12/25/19] metformin 500 mg tablet 500 mg PO QDAY tab 09/06/17 [History Confirmed 12/25/19] vit A,C and K-xcaklo-abrnjiev 1,000 unit-C 200 mg-E 60 unit-lutein 2 mg and minerals tablet 1 tab PO BID 09/06/17 [History Confirmed 12/25/19] albuterol sulfate 90 mcg/actuation aerosol inhaler 2 puff INHALATION Q4H PRN #18 g 02/25/18 [Rx Confirmed 12/25/19] cholecalciferol (vitamin D3) 50 mcg (2,000 unit) capsule 2,000 unit PO TID cap 02/25/18 [History Confirmed 12/25/19] magnesium 250 mg tablet 250 mg PO DAILY 02/25/18 [History Confirmed 12/25/19] mecobalamin (vitamin B12) 1,000 mcg disintegrating tablet,sublingual 1,000 mcg SUBLINGUAL DAILY 02/25/18 [History Confirmed 12/25/19] mupirocin 2 % topical ointment 1 applic TOPICAL TID 08/20/18 [History Confirmed 12/25/19] amlodipine 5 mg tablet 5 mg PO DAILY 11/04/19 [History Confirmed 12/25/19] aspirin 81 mg tablet,delayed release 81 mg PO DAILY 11/04/19 [History Confirmed 12/25/19] furosemide 20 mg tablet 40 mg PO DAILY tab 11/04/19 [History Confirmed 12/25/19] melatonin 5 mg capsule 5 mg PO QHS cap 11/04/19 [History Confirmed 12/25/19] metoprolol succinate 100 mg tablet,extended release 24 hr 100 mg PO DAILY 11/04/19 [History Confirmed 12/25/19] [facility] Social History (Updated 12/25/19 @ 13:05 by ROBIN Shaw) Smoking Status: Never smoker second hand exposure: No alcohol intake: never substance use type: does not use caffeine: Yes what type of physical activity do you participate in: none ROS Const Const: Positive for fatigue; negative for weakness, body ache, fever(s) or chills ENT ENT: Negative for dizziness Cardio Chest Pain: Yes Palpitations: No Edema: Bilateral Muscle aches with walking: None Resp Respiratory: Positive for SOB with activity; negative for SOB at rest, SOB orthopnea\SOB lying down or paroxysmal nocturnal dyspnea GI GI: Negative nausea, vomiting blood/hematemesis, bright, red blood in stools or black,tarry stools : Negative for hematuria or frequent nighttime urination/ nocturia Musc Musc: Negative for muscle aches/ myalgia Skin Skin: Negative non-healing lesions or rash Neuro Neuro: Negative for dizziness, lightheadedness, near syncope, syncope, orthostatic symptoms or weakness Endo Endo: Positive for fatigue Allergy Allergy/Immunology: Negative for rash Cardiology Exam Const Appearance: cooperative, healthy appearing, comfortable and no acute distress Nutritional Appearance: well nourished and obese Orientation: alert, awake and oriented x3 Head Head: normal to inspection Ears: hearing grossly normal bilaterally Nose: external nose normal Face and Sinus: face symmetric Mouth: oral mucosae normal Eyes General: appearance normal, both eyes and all related structures Eyelids: eyelids normal EOM: EOM intact bilaterally Neck Neck: normal visual inspection and no JVD Carotids: normal carotid upstroke Chest Chest inspection: normal inspection of the chest, symmetric chest movement and normal respiratory effort; negative cough Auscultation: Bilateral: Clear to Auscultation Cardio Rate: regular rate Rhythm: regular rhythm Heart sounds: S1 normal, S2 normal and murmur; negative rub or gallop Murmur: Grade 2/6 and RLSB GI GI: normal to inspection and obese Neuro General: alert, awake, oriented x3 and CN's II-XI intact bilaterally Skin Skin: no rashes or lesions noted Extremities Pulses: Normal: Right Posterior Tibial Pulse, Left Posterior Tibial Pulse, Right Radial Pulse, Left Radial Pulse Lower Extremity Edema: None: Bilateral Psych Psychological: normal affect Assessment & Plan 1. Nonrheumatic aortic (valve) stenosis I35.0 Plan Her most recent echocardiogram from 06/23/2019 showed peak aortic valve gradient of 48 mmHg, mean aortic valve gradient of 17 mmHg, and aortic valve area 1.1 cm?. Given patient's ongoing symptoms, it was recommended she undergo a transesophageal echocardiogram to evaluate valve in more detail. Based on results, further recommendation be made. Patient will proceed with left heart catheterization to define coronary artery anatomy to ultimately guide long-term valvular treatment which may include open heart approach or TAVR, depending on results. 2. Pulmonary HTN I27.20 Plan She will proceed with a right heart cath to further assess pulmonary hypertension. Based on results, further recommendation to be made. 3. Hypertension I10 Plan Her blood pressure slightly elevated. This is improved compared to previous. This will need to be addressed based on test results and long-term recommendation. Adjustments may include increasing amlodipine or or hydralazine. 4. Dyspnea on exertion R06.00 Plan This is 1 of her main concern. Is difficult to discern if this is related to underlying aortic valve disease, pulmonary hypertension, or coronary artery disease. She will proceed with testing which will include, transesophageal echocardiogram, right heart catheterization, and left heart catheterization to assess further. Based on results, further recommendation will be made. She was asked to continue with current medical therapy in the interim which includes amlodipine and Lasix. 5. Chest pain, unspecified type R07.9 Plan Her EKG on 12/25/2019 in office showed sinus rhythm at a rate of 61 bpm QTC of [address] or T wave changes. She does describe a fleeting, zip chest discomfort. This is located on both right and left side of her chest. The etiology of this discomfort is unclear. She will proceed with left heart catheterization to assess coronary artery disease component. Additional Comments Thank you for allowing us to participate in the patients plan of care, if you have any questions please do not hesitate to call. This note was generated using a voice recognition system and there may be incorrect words, spelling or punctuation that were not noted when reviewing the office note prior to saving. 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 Moderate calcific plague at the proximal left internal carotid with <50% stenosis. Normal flow bilateral external carotids Patent and antegrade vertebrals bilaterally Echocardiogram 06/23/2019: Interpretation Summary Normal LV size. Mild concentric left ventricular hypertrophy. Left ventricular systolic function is normal. The estimated ejection fraction is 60 %. Mild (1+) tricuspid valve insufficiency. Contrast injection was performed. Stress Echocardiogram 11/10/2019: Interpretation Summary The estimated ejection fraction is 65 %. Normal, adequate, modified Derick treadmill echocardiogram. Negative for ischemia by EKG and echocardiographic criteria. No anginal symptoms noted. No arrhythmias noted. Hypertensive blood pressure response to exercise. Poor exercise capacity for age. Patient had baseline peak and mean aortic valve gradient of 45/26 mmHg, which increased to 79/53 mmHg respectively at peak exercise. Test terminated due to dyspnea. Final LVEF is 75%. Decrease sensitivity due to poor echo windows requiring Definity agent. No complications. The study was technically difficult. Contrast injection was performed. Procedure Criteria Procedure Type: Elective COVID Risk Discussion: The surgeon/proceduralist and patient have discussed in detail the risk of exposure to and/or potential harm posed by the COVID-19 virus with having a surgery/procedure at this time versus the risk of delaying the surgery/procedure. It is not possible to know either the risk of delaying the surgery or procedure or chance of getting an infection with perfect accuracy, but a joint decision was made between the patient and the surgeon/proceduralist to proceed at this time with the scheduled surgery/procedure as indicated on the consent form. 12/30/19 1457 <Electronically signed by Dell Ford> Date _ Dell KELLY 12/31/19 0832 <Electronically signed by Chuck Grayson MD> Cosigner Signature: Date (if applicable) Chuck Grayson MD CC: ROBIN Asher; Dr. Chuck Grayson MD; Dr. New Martinez MD ~ Signed Biochemistry Technician addendum: The risk and benefits of the procedure were thoroughly explained the patient prior to her transesophageal echocardiogram and prior to any sedation medicine, including specific attention to lack of onsite surgical backup, the patient agreed to proceed. Left and right heart catheterization to follow.
--- NOTE | 2019-12-31 12:27 | CL.D_ITS ---
Patient Name: LASHAE HARRIS Study Date: 12/31/2019 Performing: Chuck Grayson MD Ht: 57.87 inches 147 cm : 1935 Wt: 154.32 lbs 70 kg Age: 84 Gender: female BSA: 1.63 PROCEDURE(S) PERFORMED [id number]/LHC/COR/LV CLINICAL PROFILE AND INDICATIONS Indications: Suspected CAD, Valvular Disease, Pre-Operative Evaluation Heart Failure: NYHA Class: 1, Newly Diagnosed: Yes, Heart Failure Type: Diastolic Stress/Imaging Date: 11/10/2019Stress Echocardiogram: Negative Angina Classification Anginal Classification w/in 2 Weeks: Anginal Equivalent Dyspnea CAD Presentations: Other: Dyspnea on exertion Comorbidities/Risk Factors: Hypertension Dyslipidemia Diabetes Mellitus: Diabetes Therapy: Oral CONCLUSIONS Normal coronary arteries Normal LV size, wall motion,and systolic function Normal Left Ventricular systolic function LVEF: by LV gram 75 % Elevated Left Ventricular End Diastolic Pressure Aortic Valve Stenosis- Moderate The patient has pulmonary hypertension which is moderate. 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 If pt gets no impr ovement with diuretic therapy, will consider referal for TAVR combined with moderate pulmonary HTN. Manual sheath removal. DESCRIPTION OF PROCEDURE The patient arrived to the procedure lab. The risks and benefits of the procedure as well as a full d escription of our services here and current unavailability of surgical backup were fully explained to the patient and/or their significant other prior to the catheterization. The Timeout was completed, verifying the correct patient and procedure. The patient's procedural site was prepped and draped in the usual fashion. Local anesthetic was given subcutaneously to right groin region with Lidocaine 2%. Using a modified Seldinger technique, arterial access was obtained via the right femoral artery, a 4 Fr sheath was inserted Venous access was obtained via the right femoral vein, a 7Fr sheath was insert ed. A 7Fr thermal dilution catheter was inserted and right heart pressures were recorded, it was then advanced to PA position for cardiac outputs. Thermal dilution cardiac outputs were then recorded. O2 saturations were then obtained. The Thermal dilution catheter was then removed. Left Ventriculography was performed in WILKINS projection using a 4 Fr. Pigtail catheter. LV to AO pullback pr essures were then recorded. Left Coronary Artery selective angiography was performed in multiple view s using a 4 Fr. JL5 catheter. Right Coronary Artery selective angiography was then performed in multi ple views using a 4 Fr. 3DRC catheter.The arterial sheath was pulled and manual compression applied u ntil hemostasis is achieved.. The venous sheath was then pulled and manual compression applied until hemostasis achieved CORONARY ANGIOGRAPHY DOMINANCE: Right Dominant LEFT HEART ASSESSMENT Left Ventricular Ejection Fraction: by LV Gram 75 % Normal LV wall motion Normal Left Ventricular systolic function Normal Left Ventricular systolic function LVEDP: 21 mmHg RIGHT HEART ASSESSMENT Thermal CO: 4.24 Thermal CI: 2.6 Jenise CO: 5.23 Jenise CI: 3.21 PW: 12 PA: 4712 26 RV: 50/4 10 RA: 05/13 8 PVR: 264 SVR: 1208 Aortic Valve Area: 0.93 Aortic Valve Index: 0.57 Aortic Valve Mean Gradient: 28 Right Heart pressures - elevated Pulmonary Hypertension Moderate LEFT MAIN: Angiographically normal LEFT ANTERIOR DESCENDING ARTERY: Angiographically normal CIRCUMFLEX ARTERY: Angiographically normal RIGHT CORONARY ARTERY: Angiographically normal VALVE FINDINGS: Aortic Valve Stenosis - moderate COMPLICATIONS No Complications PROCEDURE MEDICATIONS Versed 1 mg IV SUMMARY OF HEMODYNAMIC DATA Time AIR REST ECG 10:21:05 RA 05/13 (8) SV 11:41:32 RV 50/4, 10 11:41:42 PW (12) PV 11:42:39 PA 47/12 (26) PA 11:43:00 LV 151/-3, 15 11:47:16 LV 163/-5, 9 11:47:23 LV 156/-8, 14 11:47:54 PW 05/16 (12) 11:47:54 LV 160/-6, 17 11:49:09 RV 53/6, 12 11:49:09 LV 159/5, 21 11:50:13 LV 169/-7, 19 11:50:19 LV 161/-3, 22 11:50:24 AOp 141/50 (82) 11:50:29 AO 119/48 (72) SA 11:52:06 Valve Area (c P-P/ms Time AIR REST Aortic 0.93 28.0 mn/346 ms20.0 pk/346 ms 11:50:24 Type SV CO (l/m) CI (l/m/ HR Time AIR REST Thermal 75.70 4.24 2.60 56 10:21:05 Jenise 93.40 5.23 3.21 56 10:21:05 Label % O2 Pres/Loc Time AIR REST PA 63 PA 11:59:26 AO 88 PV 11:59:36 Signed By Chuck Grayson MD On 12/31/2019 12:26:33 PM Chuck Grayson MD
[2019-12-31 15:35] VITALS: BP 139/65; PULSE 64; RESP 18; TEMP 36.7; O2SAT 96
[2019-12-31 16:14] VITALS: PULSE 69
[2019-12-31 16:18] VITALS: BP 138/79; PULSE 75; RESP 18; TEMP 36.7; O2SAT 95
[2019-12-31 17:18] VITALS: BP 159/68; PULSE 60; RESP 18; TEMP 36.7; O2SAT 93
--- NOTE | 2019-12-31 17:36 | NURSING ---
Walked pt in paez, no signs of complications, bleeding or hematoma to right groin cath site.
== END 2019-12-31 18:10 | disposition home or self-care (01) ==
LOC: CLSP 09:56 → PCU 15:40
PROVIDERS: PCP Family Medicine; Referring Provider Internal Medicine Cardiovascular Disease; Visit Provider Internal Medicine Cardiovascular Disease
DX: Z01.818 Encounter for other preprocedural examination (principal); R06.09 Other forms of dyspnea; I35.0 Nonrheumatic aortic (valve) stenosis; I27.20 Pulmonary hypertension, unspecified; R07.9 Chest pain, unspecified; E11.9 Type 2 diabetes mellitus without complications; E78.5 Hyperlipidemia, unspecified; E66.9 Obesity, unspecified; G47.33 Obstructive sleep apnea (adult) (pediatric); I11.0 Hypertensive heart disease with heart failure; I50.30 Unspecified diastolic (congestive) heart failure; Z79.84 Long term (current) use of oral hypoglycemic drugs; Z79.899 Other long term (current) drug therapy
CPT/HCPCS: 36415; 71046; 80048; 80061; 80076; 85025; 85610; 87635; 93312; 93320; 93325; 93460; 99152; 99153; G2023; J7040; Q9967; A4216; C1751; C1769; C1894; U0003

== ENCOUNTER → 2020-06-11 | Outpatient (CLI) | payer MEDICARE, SELFPAY ==
[2020-03-25 11:18] VITALS: BMI 39.4
--- NOTE | 2020-06-14 | LES_PTH ---
PATIENT: LASHAE HARRIS LOC: [facility] U#:[id number] AGE/SX: 84/F ROOM: RE06/11/[address]: Dr. Domingo Marinelli MD : 1935 BED: DIS: 06/11/2020 SPEC #: [id number] RECD: 06/14/20 12:11 STATUS: KARON REDalton #: [id number] MISAEL: 06/14/20 00:[address]: Domingo Marinelli DEPT: SURGICAL PATHOLOGY RECD BY: Nolan Westbrook ENTERED: 06/14/20 12:12 SP TYPE: Lesion OTHR DR: Dr. New Martinez MD Tissues: Skin of eyelid, NOS Procedures: Surgery Specimen Level III HEADER OPERATION: Lesion excision right lower lid PRE-OP DIAGNOSIS: Cystic lesion increased size TISSUE SUBMITTED: Lesion right lower lid MICROSCOPIC DIAGNOSIS Right lower lid lesion, excision: Epidermal inclusion cyst. AYLEEN:ilene 06/15/2020 MICROSCOPIC DESCRIPTION Slides are reviewed. GROSS DESCRIPTION Received in fixative is one container labeled with the patient's name and designated right lower lid. The specimen consists of multiple pieces of schaeffer-white skin to yellow soft tissue that in aggregate measure 0.7 x 1 x 0.2 cm. The specimen is totally submitted in one cassette. / SJ:rg 06/14/20 TC:5 CPT: 82261
== END | disposition home or self-care (01) ==
LOC: LABSPEC 06-14 09:57
PROVIDERS: PCP Family Medicine; Referring Provider Ophthalmology; Visit Provider Ophthalmology
DX: L98.9 Disorder of the skin and subcutaneous tissue, unspecified (principal)
CPT/HCPCS: 88304; 88305

== ENCOUNTER → 2020-07-29 12:43 | Outpatient (CLI) | payer MEDICARE, SELFPAY ==
[2020-06-15 11:13] VITALS: BMI 39.1
--- NOTE | 2020-07-29 12:45 | ECHOD_ITS ---
Reason For Study: AORTIC STENOSIS Procedure This was a 2D Doppler, Color Flow transthoracic echocardiogram. Exam performed in department. Left Ventricle Normal LV size. The estimated ejection fraction is 70 %. Diastolic function is indeterminate. No regional wall motion abnormalities noted. Right Ventricle Normal RV size. Normal systolic function. Atria Normal left atrium. Normal right atrium. No doppler evidence for ASD. Mitral Valve There is no mitral valve stenosis. No mitral valve insufficiency. Tricuspid Valve There is no tricuspid stenosis. Unable to estimate RV systolic pressure due to inadequate jet, pulmonary artery pressure probably normal. Aortic Valve Moderate diffuse aortic valve thickening. Moderate aortic stenosis. Trivial aortic valve insufficiency. Pulmonic Valve There is no pulmonic valvular stenosis. No pulmonic valve insufficiency. Great Vessels Normal aortic root. Pericardium/Pleural No pericardial effusion. MMode/2D Measurements & Calculations LVIDd: 4.7 cm IVSd: 1.1 cm LVOT diam: 2.0 cm LVIDs: 3.1 cm LVPWd: 1.2 cm LVOT area: 3.0 cm2 RVDd: 3.1 cm FS: 33.5 % Ao root diam: 3.1 cm LAV(MOD-bp): 56.4 ml LA A4 area: 19.7 cm2 LAV(MOD-bp) Indexed: 31.8 ml/m2 LAV(MOD-sp2): 50.7 ml LAV(MOD-sp4): 57.9 ml LA dimension(2D): 4.0 cm Time Measurements MV dec time: 0.23 sec Doppler Measurements & Calculations MV E max jensen: 96.9 cm/sec Lat Peak E' Jensen: 5.3 cm/sec Med Peak E' Jensen: 5.4 cm/sec MV A max jensen: 88.5 cm/sec E/E' lat: 18.3 E/E' med: 17.9 MV E/A: 1.1 Ao V2 max: 345.8 cm/sec AI max jensen: 384.3 cm/sec LV V1 max: 116.0 cm/sec Ao max P.9 mmHg AI max P.1 mmHg LV V1 max P.4 mmHg Ao V2 mean: 256.7 cm/sec LV V1 mean P.0 mmHg Ao mean P.4 mmHg AI dec slope: 206.6 cm/sec2 LV V1 mean: 83.5 cm/sec Ao V2 VTI: 81.3 cm AI P1/2t: 544.7 msec LV V1 VTI: 27.5 cm HERBERT(I,D): 1.0 cm2 HERBERT(V,D): 1.0 cm2 SV(LVOT): 83.7 ml PA V2 max: 123.1 cm/sec Interpretation Summary The estimated ejection fraction is 70 %. Diastolic function is indeterminate. Moderate aortic stenosis. Trivial aortic valve insufficiency. Ordering Physician: Avelino Borges Referring Physician: New Martinez Performed By: Caro Woodard, KEVIN, RVT
== END ==
PROVIDERS: PCP Family Medicine; Referring Provider Specialist; Visit Provider Specialist
DX: Z98.890 Other specified postprocedural states (principal)
CPT/HCPCS: 93306

== ENCOUNTER → 2020-08-18 09:09 | Outpatient (CLI) | payer MEDICARE, SELFPAY ==
[2020-06-15 11:13] VITALS: BMI 39.1
[2020-08-18 10:21] LABS: Absolute Neutrophil Count 2.7 X10^3/uL (2.0-7.7); Basophil# 0.04 X10^3/uL; Basophil% 0.7 % (0-1); Eosinophil# 0.06 X10^3/uL; Eosinophils% 1.1 % (0-5); Hematocrit 39.1 % (37-47); Hemoglobin 12.5 g/dL (12.0-15.0); Lymphocyte % 37.3 % (19-41); Mean Corpuscular Hgb 29.8 pg (27.0-32.0); Mean Corpuscular Volume 93.3 fL (81-99); Mean Platelet Vol. 10.6 fl (6.2-12.0); Monocyte# 0.57 X10^3/uL; Monocyte% 10.6 % (0-10); NRBC Flagged by Analyzer 0 % (0-5); Neutrophil # 2.67 X10^3/uL (2.7-7.7); Neutrophil % 49.9 % (47-70); Platelet Count 239 K/mm3 (150-450); RBC Distribution Width CV 13.6 % (11.6-14.6); RBC Distribution Width SD 46.5 fl (35.1-43.9); Red Blood Count 4.19 M/mm3 (4.2-5.4); White Blood Count 5.4 K/mm3 (4.4-11.0)
[2020-08-18 10:54] LABS: Microalbumin,Random Urine 39.9 mg/L (NO RANGE EST.); Microalbumin:Creatinine Ratio 49.2 mg/g CRE (<30 mg/g CRE)
[2020-08-18 11:01] LABS: ALB/GLOB Ratio 1.2 RATIO (0.9-2.4); AST(SGOT) 19 U/L (15-37); Alanine Aminotransfer ALT/SGPT 21 U/L (13-56); Albumin, Serum 3.8 g/dL (3.2-5.0); Alkaline Phosphatase 160 U/L (45-117); Anion Gap 8 (5-15); BUN 27 mg/dL (7-18); BUN/Creat Ratio 25.5 RATIO (10-20); CRP, High Sensitivity Cardiac 5.28 mg/L; Chloride 105 mmol/L (98-107); Cholesterol 175 mg/dL (200); Creatinine, Serum 1.06 mg/dL (0.55-1.02); EST Glomerular Filtration Rate 52 mL/min (>60); Est Glom Filt Rate - Afr Amer 63 mL/min (>60); Globulin 3.1 g/dL (2.2-4.2); Glucose 161 mg/dL (74-106); High Density Lipoprotein 57 mg/dL; Potassium 3.9 mmol/L (3.5-5.1); Protein, Total 6.9 g/dL (6.4-8.2); Sodium Level 141 mmol/L (136-145); Thyroid Stim Hormone (TSH) 1.84 uIU/mL (0.358-3.74); Triglycerides 183 mg/dL; Very Low Density Lipoprotein 37 mg/dL (5-40)
[2020-08-18 11:54] LABS: Hemoglobin A1c 7.2 % (3.8-5.6)
== END ==
PROVIDERS: PCP Family Medicine; Referring Provider Family Medicine; Visit Provider Family Medicine
DX: E11.9 Type 2 diabetes mellitus without complications (principal); M19.90 Unspecified osteoarthritis, unspecified site
CPT/HCPCS: 36415; 80053; 80061; 82043; 82570; 83036; 84443; 85025; 86141

== ENCOUNTER → 2020-12-20 20:13 | Outpatient (CLI) | payer MEDICARE, SELFPAY ==
[2020-12-01 05:44] VITALS: BMI 38.6
[2020-12-17 13:03] VITALS: BMI 39.4
== END ==
PROVIDERS: PCP Family Medicine; Referring Provider Internal Medicine Critical Care Medicine; Visit Provider Internal Medicine Critical Care Medicine
DX: G47.33 Obstructive sleep apnea (adult) (pediatric) (principal)
CPT/HCPCS: 95811

== ENCOUNTER → 2021-02-18 09:45 | Outpatient (CLI) | payer MEDICARE, SELFPAY ==
[2021-02-18 12:19] LABS: Absolute Lymphocyte Count 2.47 X10^3/uL (0.83-4.51); Absolute Neutrophil Count 2.9 X10^3/uL (2.0-7.7); Basophil# 0.04 X10^3/uL; Basophil% 0.7 % (0-1); Eosinophil# 0.09 X10^3/uL; Eosinophils% 1.5 % (0-5); Hematocrit 38.1 % (37-47); Hemoglobin 12.1 g/dL (12.0-15.0); Lymphocyte # 2.47 X10^3/ul (0.83-4.51); Lymphocyte % 40.4 % (19-41); Mean Corp Hgb Conc 31.8 g/dL (32-36); Mean Corpuscular Hgb 30.2 pg (27.0-32.0); Mean Platelet Vol. 11.1 fl (6.2-12.0); Monocyte# 0.64 X10^3/uL; Monocyte% 10.5 % (0-10); NRBC Flagged by Analyzer 0 % (0-5); Neutrophil # 2.86 X10^3/uL (2.7-7.7); Neutrophil % 46.6 % (47-70); Platelet Count 228 K/mm3 (150-450); RBC Distribution Width CV 13.9 % (11.6-14.6); RBC Distribution Width SD 48.9 fl (35.1-43.9); Red Blood Count 4.01 M/mm3 (4.2-5.4); White Blood Count 6.1 K/mm3 (4.4-11.0)
[2021-02-18 12:34] LABS: Cholesterol 177 mg/dL (200); GGTP 46 U/L (5-55); High Density Lipoprotein 53 mg/dL; Triglycerides 208 mg/dL; Very Low Density Lipoprotein 42 mg/dL (5-40)
[2021-02-18 12:39] LABS: Hemoglobin A1c 7.6 % (3.8-5.6)
[2021-02-18 12:59] LABS: Microalbumin,Random Urine 77.5 mg/L (NO RANGE EST.); Microalbumin:Creatinine Ratio 202.4 mg/g CRE (<30 mg/g CRE)
== END ==
PROVIDERS: PCP Family Medicine; Referring Provider Family Medicine; Visit Provider Family Medicine
DX: E11.22 Type 2 diabetes mellitus with diabetic chronic kidney disease (principal); R74.01 Elevation of levels of liver transaminase levels; N18.9 Chronic kidney disease, unspecified
CPT/HCPCS: 36415; 80061; 82043; 82570; 82977; 83036; 85025

== ENCOUNTER → 2021-04-11 12:55 | Outpatient (CLI) | payer MEDICARE, SELFPAY ==
--- NOTE | 2021-04-11 12:58 | ECHOD_ITS ---
Reason For Study: Murmur Procedure This was a 2D Doppler, Color Flow transthoracic echocardiogram. The study was technically difficult. Contrast injection was performed. Exam performed in department. Left Ventricle Normal LV size. Sigmoid septum. Left ventricular systolic function is normal. The estimated ejection fraction is 55 %. Diastolic function is indeterminate. No regional wall motion abnormalities noted. Right Ventricle Normal RV size. Normal systolic function. Atria The left atrium is moderately enlarged. The right atrium is mildly enlarged. No doppler evidence for ASD. Mitral Valve There is no mitral annular calcification. Normal mitral valve. Mild (1+) mitral valve insufficiency. Tricuspid Valve Normal tricuspid valve. Mild tricuspid valve insufficiency. Right ventricular systolic pressure estimated to be 31 mmHg. Aortic Valve The aortic valve is not well visualized. Based upon the spectral Doppler information obtained there appears to be moderate to severe aortic valve stenosis. Trivial aortic valve insufficiency. Pulmonic Valve The pulmonic valve is not well visualized. Great Vessels The aortic root is not well visualized. Pericardium/Pleural No pericardial effusion. Medication Diluted definity 3ml given slow IV push to enhance endocardial definition. MMode/2D Measurements & Calculations LVIDd: 5.0 cm IVSd: 0.95 cm LVOT diam: 2.0 cm LVIDs: 3.0 cm LVPWd: 1.2 cm FS: 39.9 % LVOT area: 3.2 cm2 LA dimension: 4.3 cm LAV(MOD-bp): 51.9 ml LA A4 area: 18.3 cm2 LAV(MOD-bp) Indexed: 29.5 ml/m2 LAV(MOD-sp2): 54.4 ml LAV(MOD-sp4): 48.9 ml RA A4 area: 18.0 cm2 Time Measurements MV dec time: 0.20 sec Doppler Measurements & Calculations MV E max jensen: 106.5 cm/sec Lat Peak E' Jensen: 6.3 cm/sec Med Peak E' Jensen: 6.3 cm/sec MV A max jensen: 73.7 cm/sec E/E' lat: 16.8 E/E' med: 17.0 MV E/A: 1.4 MV V2 max: 121.3 cm/sec MV P1/2t max jensen: 122.3 cm/sec Ao V2 max: 394.4 cm/sec MV max P.9 mmHg MV P1/2t: 71.8 msec Ao max P.3 mmHg MV V2 mean: 52.5 cm/sec MV dec slope: 499.2 cm/sec2 Ao V2 mean: 226.0 cm/sec MV mean P.4 mmHg Ao mean P.8 mmHg MV V2 VTI: 39.7 cm MVA(P1/2t): 3.1 cm2 Ao V2 VTI: 92.7 cm MVA(VTI): 2.0 cm2 HERBERT(I,D): 0.86 cm2 HERBERT(V,D): 0.83 cm2 AI max jensen: 375.6 cm/sec LV V1 max: 103.5 cm/sec SV(LVOT): 79.5 ml AI max P.4 mmHg LV V1 max P.3 mmHg AI dec slope: 176.6 cm/sec2 LV V1 mean P.4 mmHg AI P1/2t: 622.9 msec LV V1 mean: 71.2 cm/sec LV V1 VTI: 25.0 cm TR max jensen: 263.8 cm/sec TR max P.8 mmHg ECHO/Echo Complete W/ Contrast Interpretation Summary The study was technically difficult. Contrast injection was performed. Left ventricular systolic function is normal. The estimated ejection fraction is 55 %. Sigmoid septum. The left atrium is moderately enlarged. The right atrium is mildly enlarged. Mild (1+) mitral valve insufficiency. Mild tricuspid valve insufficiency. Trivial aortic valve insufficiency. Right ventricular systolic pressure estimated to be 31 mmHg. Diastolic function is indeterminate. Based upon the spectral Doppler information obtained there appears to be modera te to severe aortic valve stenosis. Ordering Physician: Marta Javed Referring Physician: New Martinez Performed By: Bridger Skelton RCS
== END ==
PROVIDERS: PCP Family Medicine; Referring Provider Physician Assistant Medical; Visit Provider Physician Assistant Medical
DX: I35.0 Nonrheumatic aortic (valve) stenosis (principal)
CPT/HCPCS: 93306; Q9957; A4216; C8929; J3490

== ENCOUNTER 2021-09-06 07:50 | Outpatient (CLI) | payer MEDICARE, SELFPAY ==
--- NOTE | 2021-09-06 07:57 | PCM.CR.ITP ---
Diagnosis - General Information Admitting Diagnosis: Heart Valve Replacement (TAVR procedure) @ [facility] [place] Secondary Diagnosis: Pulmonary Hypertenion, [facility];l Hypertension, HLD, DM, and MELODIE Personal Learning Style:: Audio/Visual, Written Barriers to Learning: Hearing Impairment - age related, Vision Impairment Stage of change r/t lifestyle modifications:: Contemplation Gave educational material for:: Treating Heart Disease, Emotions & Heart Disease, Stress Management & Relaxation, Sleep Disorders & Heart Disease, How The Heart Works, What it means to have Heart Disease, How Coronary Artery Disease is Diagnosed, Heart Procedures, What Heart Medications Do, Risk Factors & Modifications, Living an Active Life, Nutrition - Education/Goals Individual Counseling: Initial Assessment: Abnormal Cholesterol Levels, High Blood Pressure, Overweight/Obesity, Diabetes, A. Fasting Blood Sugar >100 - Glucose 161 - HBA1c 7.6%, B. Waist Circumference >35/Females >40/Males, C. High Triglycerides >150 - 208, Sedentary Lifestyle Cardiac Rehabilitation Goals: 1. Maintain the individual as the primary focus of care. 2. To improve the patient's quality of life. 3. Identification of cardiac risk factors and provide cardiac risk factor management. 4. Enhance the psychosocial status of the patient. 5. Reconditioning enough to allow the patient to resume customary activities. 6. Control symptoms of cardiac disease Personal Goals: Initial Assessment: Improve energy level, Improve muscle strength and endurance, Improve diet and eating habits (eat healthier), Control risk factors (learn risk factor modification), Other goal: - walk better Scale for measuring improvement of personal goals: Enter appropriate number in Comments. 2 = Unchanged. 3 = Slightly Better. 4 = Moderate Improvement. 5 = Met my Goal - Diagnosis & Disease Process Outcomes/Goals: Pt IDs own risk factors & lifestyle modifications by Session 10, Verbalizes symptoms of angina & response by session 3., Pt independently manages Plan/Interventions: Assist Pt to ID & engage in lifestyle modification to reduce CVD risk, Instruct on individual risk factors, Review symptoms of angina & emergency actions, Review secondary diagnosis & identify educational needs. - Safety Referral to Physical Therapy: No Referral to [facility] Case Management: No Assistive Devices:: Cane - for assistance if ambulating alone. Needs to rest occasionally when walking long distances Exercise - Initial Assessment - Visit Date of Eval: 09/06/21 Session #:: 0 - Pre-cardiac rehab evaluation Mets: Pre-: >5 METS for 30 minutes by discharge - Physician Prescribed Exercise Modalities: Treadmill, NuStep, SciFit, Lateral [place] Frequency: 3x/week for 12 weeks [36 sessions] Intensity: 60-80% of age predicted maximum heart rate reserve Current METSs:: 2.0 Target Heart Rate:: 87-113 Resting Blood Pressure: 144/62 EKG Type: Sinus Rhythm Current Physical Activity or Exercising minutes: None since surgery - Outcomes & Goals Goals:: Verbalizes understanding of THR, RPE & goal METS by session 6, Documents in home exercise log/reports 30 min aerobic 5 day/wk by DC, Demonstrates accurate pulse taking by DC - Intervention & Plan Exercise Program Goals: Instruct on personal THR & RPE, Instruct on MET level & personal MET goal, Show patient to take own pulse /validate performance until accurate, Instruct on home exercise - Physical Activity Home Exercise Physical Activity - Home Exercise: Safe Exercise, Warm-up, Self-monitoring, Cool-Down, Home Exercise > 30 min Daily, Sitting Time <3 hours/daily - Outcomes & Goals Outcomes/Goals: Demonstrates correct Warm-up/exercise Cool-Down (S3) if = 2.5 METs, Verbalizes symptoms of exercise intolerance by Session 3 (S3), Demonstrate safe equipment use (S3) & follows exercise prescrition (6) - Intervention & Plan Plan/Intervention: Instruct warm-up & cool-down if exercising at > 2 METs, Instruct on symptoms of exercise intolerance & actions to take, Instruct & monitor on saf, Assess intial functional capacity & safety risk Nutrition - Initial Assessment - Program Goals Nutrition Program Goals: LDL <100 optimal. 100 - 129 Near optimal. 130 - 159 Borderline High. 160 - 189 High. Total Cholesterol <200 desirable. 200 - 239 Borderline High. >/= 240 High. HDL < 40 Low >/=60 High. Triglycerides <150 desirable. <199 optimal. VlDL 5 - 40. HgbA1C <7%. BMI <25 Patient has diagnosis of Hyperlipidemia (ICD E78)?: Yes - Visit Date of Assessment:: 09/06/21 Session #:: 0 - Pre-cardiac Rehab evaluation - Cholesterol/Lipids Triglycerides (mg/dL): 208 - 02/18/2021 Total Cholesterol (mg/dL): 177 LDL Cholesterol (mg/dL): 82 HDL Cholesterol (mg/dL): 53 Determine presence & major risk factors that modify LDL goal: Hypertension or hypertensive medication, Family history of premature CHD in Male < 55 years: female <65 yearsFa, Age men > 45 years; women >/= 55 years Outcomes/Goals: Pt IDs own risk factors & lifestyle modifications by Session 10, Verbalizes symptoms of angina & response by session 3., Pt independently manages Intervention/Plan: Instruct on personal lipid levels & lipid goals/NCEP guidelines, Instruct on cholesterol Referral to dietitian:: Yes - Medical Nutrition Therapy - Diabetes (Other Core Measures) Diabetes Type: Diagnosis Type II ICD-10 E11 Insulin dependent injection/pump?: No Non-Insulin Dependent?: Yes Do you monitor your blood sugar at home?: Yes Referral to Diabetic Clinic:: Yes Outcomes/Goals:: Able to state symptoms of, Able to state, Able to state Intervention/Plan:: Instruct on, Refer to, Instruct on - Weight Mgt (Other Care) Not Applicable: Yes Height: 4 ft 10 in Weight:: 186 lb BMI: 38.8 Diagnosis Overweight/Obesity BMI> 30% ICD-10 E66: Yes Diagnosis High BMI/Morbid Obesity BMI> 35% ICD-10 Z68: Yes Outcomes/Goals: Pt sets, maintains & shows weight loss goal & trend during rehab Intervention/Plan: Instruct on ideal BMI & set weight loss goal w/patient, Assist pt to ID & incorporate diet changes for weight loss by S9, Refer to Structured Weight Loss program as appropriate, Encourage goal of using 250-300dcal per session for weight loss - Healthy Eating Habits Will attend diet classes:: Yes Outcomes/Goals:: Consume diet rich in vegs,fruits,whole grain/high fiber,fish,lean meat, Limit sat/trans fats,cholesterol & added salts & sugars Intervention/Plan:: Assess current eating habits - Education Gave educational materials for:: Signs & symptoms of hypoglycemia, Signs & symptoms of hyperglycemia, Relate diabetes to coronary artery disease, Healthy eating Nutrition - 30-Day Assessment Nutrition - 60-Day Assessment Nutrition - 90-Day Assessment Nutrition - Final Assessment Medical - Initial Assessment - Visit Date of Eval: 09/06/21 Session #:: 0 - Medication Compliance Preventative Medication(s):: Aspirin, Clopidogrel/P2Y12 inhibit, Statin/lipid, Beta danielle H/O mental health issues: depression, anxiety, or addiction?: No Doesn?t believe in the benefits of treatment?: No Believes medications are unnecessary or harmful?: No Has a concern about medication side effects?: No Expresses concern over the cost of medications?: No Outcomes/Goals: Verbalizes medications,desired effect & common side effects @ DC, Pt self-reports following medication regimen, Keeps card in wallet w/medications listed by DC Interventions/plans: Instruct on medication effects & side effects, Review medication list w/patient every two weeks, Instruct importance of taking meds as ordered & assist problem solving - Tobacco Use Tobacco Use: Non-smoker - Hypertension Hypertension Diagnosis:: Hypertension ICD-10 I10 Resting Blood Pressure:: 144/62 [place] [employer] Hypertension Guidelines: [place] [employer] Hypertension Guidelines. Normal BP Less than 120/80. Elevated BP 120/80. Hypertension Stage 1: BP 130-139/80-89. Hypertesnion Stage 2: BP 140 or higher/90 or higher. Hypertension Crisis: BP higher than 180/120 Outcomes/Goals: Able to verbalize/achieve optimal blood pressure <130/80, Incorporates diet changes & exercise for blood pressure control by DC Interventions/plan: Instruct on optimal blood pressure, hypertension & medications, Instruct on effects of sodium, alcohol, stress, exercise &hypertension - Tobacco Cessation Referral Smoking Cessation Referral:: No Individual Education/Counseling:: No Education Schedule Given:: Yes Medical- 30-Day Assessment Medical- 60-Day Assessment Medical- 90-Day Assessment Medical - Final Assessment Psychosocial - Initial Assess - VIsit Date of Eval: 09/06/21 Session #:: 0 - Pre-cardaic rehab evaluation Not Applicable: Yes History of previous Mental disease:: No - Psychosocial Test Tool Used:: [employer] Concept3[employer] QOL Cardiac, PHQ-9 Questionnaire phq-9 Severity: Severity. 1-4 Minimal Depression. 5-9 Mild Depression. 10-14 Moderate Depression. 15-19 Moderately Sever Depression. 20-27 Severe Depression. Rule: - Referral to Behavioral Health PS - Interventions: Yes Attend Stress Management Classes, No Referral to Behavioral Health if PHQ-9 score >9:, No Referral to [facility], No Referral to Physician if PHQ-9 if score is 5-9: - Outcomes/Goals: See list Psychosocial Outcomes/Goals:: ID's personal stressors & 2 strategies to manage stress by discharge - Intervention/Plan: See List Interventions/Plan:: Assess stressors,coping strategies & signs of derpression on admission, Instruct/assist pt to develop coping & personal stress Mgt strategies, Instruct patient to recognize signs & symptoms of depression, Instruct patient to recog Psychosocial - 30-Day Assess Psychosocial - 60-Day Assess Psychosocial - 90-Day Assess Psychosocial - Final Assessmen Patient Health Questionnaire Initial Assessment 1. Little interest or pleasure in doing things: Several days 2. Feeling down, depressed, or hopeless: Several days 3. Trouble falling or staying asleep, or sleeping too much: Not at all 4. Feeling tired or having little energy: Nearly every day 5. Poor appetite or overeating: Not at all 6. Feeling bad about yourself -- or that you are a failure or have let yourself or your family down: Not at all 7. Trouble concentrating on things, such as reading the newspaper or watching television: Not at all 8. Moving or speaking so slowly that other people could have noticed. Or the opposite - being so fidgety or restless that you have been moving around a lot more than usual: More than half the days 9. Thoughts that you would be better off , or of hurting yourself in some way: Not at all How difficult have these problems made it for you to do your work, take care of things at home, or get along with other people?: Somewhat difficult Total Score: 7 PRAVEENA-Q SV Test - Statements CAD is a disease of the arteries in the heart: False Examples of risk factors for heart disease: True Angina is chest pain or discomfort: True The benefits of resistance training include: True Eating more meat and dairy products: False Anti-platelet medications such as aspirin are important: True The only effective way to manage stress: False An exercise warm-up slowly increases heart rate: True Prepared, processed foods usually have high sodium: True Depression is common after a heart attack: True The statin medications lower cholesterol: I Don't Know To control blood pressure, lower the amount of sodium: True If someone gets chest discomfort during walking: False Transfats are partially hydrogenated vegetable oils: True Sleep apnea that is not treated increases the risk: True To control cholesterol, one should become a vegetarian: False Someone knows if he/she is exercising at the right level: True Diabetes cannot be prevented with exercise & health eating: False Stress is a large risk for heart attack: True A diet that can help lower blood pressure is rich in: True - Total Score Total Correct Responses: 18 Self-Efficacy Initial Assessment We would like to know how confident you are in doing certain activities. Please select your confidence level for:: Select your confidence level for the following using the scale 1-10 where 1 is not at all confident and 10 is totally confident. Your score is the average of all 6 responses. Fatigue: How confident are you that you can keep the fatigue caused by your disease from interfering with the things you want to do? Select Number: 2 Physical Discomfort or Pain: How confident are you that you can keep the physical discomfort or pain of your disease from interfering with the things you want to do? Select Number: 2 Emotional Distress: How confident are you that you can keep the emotional distress caused by your disease from interfering with the things you want to do? Select Number: 2 Other Symptoms or Health Problems: How confident are you that you can keep other symptoms or health problems from interfering with the things you want to do? Select Number: 2 Different Tasks and Activities: How confident are you that you can do the different tasks and activities needed to manage your health condition so as to reduce your need to see a doctor? Select Number: 2 Medication: How confident are you that you can do things other than just taking medication to reduce how much your illness affects your everyday life? Select Number: 3 Total Score:: 2 Nutrition Survey - Nutrition Survey Initial Have you lost >10 lbs over the past 2 months without trying?: No Are you following a special diet at home for diabetes, low fat, or low salt?: Yes Are you interested in meeting with a dietitian for help understanding your diet?: No Do you eat less than 3 meals a day?: Yes - sometimes Do you eat fatty meats (stevenson, sausage, ribs, etc), fried foods, desserts, large amounts of salad dressings, margarine, butter, or cheese most days?: Yes - in moderation Do you have food allergies? [Enter types in comment field]: Yes - eggs Do you eat in restaurants more than 3 times a week?: No Do you season food with salt, seasoning salt, or garlic salt?: No Do you used canned, boxed, frozen meals, or soups, seasoning packets?: Yes - only sometimes Total Score:: 5
--- NOTE | 2021-09-06 07:58 | PCM.CR.HP2 ---
CR - History & Physical - General Arrival date:: 09/06/21 Arrival time:: 08:01 Date of Referral:: 08/08/21 Date of CR Evaluation:: 09/06/21 Referring Physician: Dr. Jose Parson Primary Diagnosis: Presence of prostatic heart valve - History of Present Cardiac Event Onset Date: Enter Onset Date of cardiac illnesses in Comment field below Heart valve replacement or repair:: Yes - Heart Valve replacement 07/28/2021 Type of Symptoms:: shortness of breath may be result on bronchestasis, worsening of echocardiogram recently done- reached the severe point. Were there any complications?: none - Sleep Disorder Evaluation Hx of Sleep Apnea: Yes Do you snore loudly (louder than talking or can be heard through closed doors)?: Yes - BiPAP currently with the MELODIE Do you often feel tired/ fatigued/ sleepy during daytime?: Yes Has anyone observed you stop breathing during sleep?: No History of Hypertension (for STOP score): Yes STOP Results: Positive - Medications Home Medications: Ambulatory Orders Medication Instructions Recorded eplerenone 25 mg PO BID 07/06/15 loratadine 10 mg PO DAILY 08/17/15 carboxymethylcellulose sodium 0.5 1 drp OPHTHALMIC QDAY PRN ml 09/06/17 % eye drops mecobalamin (vitamin B12) 1,000 1,000 mcg SUBLINGUAL DAILY 02/25/18 mcg disintegrating tablet,sublingual amlodipine 5 mg tablet 5 mg PO DAILY 11/04/19 aspirin 81 mg tablet,delayed 81 mg PO DAILY 11/04/19 release metformin 500 mg tablet 500 mg PO BID tab 03/03/20 vit A 300 mcg-C 200 mg-E 27 2 tab PO DAILY tab 03/03/20 mg-lutein 2 mg and minerals tablet albuterol sulfate 90 mcg/actuation 2 puff INHALATION Q4H PRN #18 g 06/15/20 aerosol inhaler cholecalciferol (vitamin D3) 50 50 mcg PO DAILY 12/17/20 mcg (2,000 unit) capsule psyllium husk 0.4 gram capsule 0.4 g PO DAILY 12/17/20 losartan 100 mg tablet 50 mg PO BID #90 tab 01/31/21 acetaminophen 500 mg capsule 1,000 mg PO BID cap 02/03/21 fluticasone propionate 50 1 spray INTRANASAL BID PRN 05/16/21 mcg/actuation nasal spray,suspension clopidogrel 75 mg tablet 75 mg PO DAILY 08/04/21 famotidine 20 mg tablet 20 mg PO DAILY 08/04/21 magnesium 250 mg tablet 250 mg PO DAILY 08/04/21 potassium gluconate 595 mg (99 mg) 595 mg PO DAILY 08/04/21 tablet biotin 5,000 mcg disintegrating 5,000 mcg PO DAILY tab 08/08/21 tablet diphenhydramine 25 1 tab PO QPM tab 08/08/21 mg-acetaminophen 500 mg tablet gabapentin 600 mg tablet 600 mg PO QHS tab 08/08/21 hydralazine 50 mg tablet 50 mg PO TID tab 08/08/21 melatonin 10 mg capsule 10 mg PO HS PRN 08/08/21 metoprolol succinate 50 mg 50 mg PO DAILY tab 08/08/21 tablet,extended release 24 hr simethicone 80 mg chewable tablet 80 mg PO QHS PRN 08/08/21 furosemide 40 mg tablet 40 mg PO BID #180 tablet 08/18/21 - Allergies Allergies/Adverse Reactions: Allergies codeine Allergy (Verified 08/08/21 11:09) Unknown egg Allergy (Verified 08/08/21 11:09) Food Allergy lactose Allergy (Verified 08/08/21 11:09) Food Allergy nitrofurantoin macrocrystalline [From Macrodantin] Allergy (Verified 08/08/21 11:09) Unknown Sulfa (Sulfonamide Antibiotics) Allergy (Verified 08/08/21 11:09) Rash Tetracyclines Allergy (Verified 08/08/21 11:09) Anaphylaxis Penicillins Adverse Reaction (Verified 08/08/21 11:09) Other bruised Advanced Directives - Advanced Directives Power of Machine Strap Buckler: Yes - Daughter is legal POA for healthcare Living Will: Yes Advance Directives Information Provided: No Advance Directives on File: No DNR Order?:: No - MOLST See MOLST form: No Past Medical History - Covid-19 Screening Fever: No Unexplained muscle aches: No Current respiratory symptoms: Yes - Pulmonary Hypertension, Sleep Apnea, Bronchiectasis Upper respiratory infections symptoms: No Gastro-intestinal symptoms: No Gcs-Ltli-Ebtzcp symptoms: No Has tested positive for COVID-19 in last 30 days: No Date of testin09/06/21 - She has had all COVID-19 Vaccines unsure of specific dates Had contact w/person w/symptoms or Covid-19 (+) last 14 days: No Has High Risk Exposures ID'd by Health dept/Inf Control team: No 65 years or older:: Yes Lives in Assisted Living facility:: No Has a chronic lung disease or moderate to severe asthma:: No Has a serious heart condition:: Yes Immunocompromised:: Yes Severely obese (Body Mass Index of 40 or higher):: Yes Diabetic:: Yes Has chronic kidney disease undergoing dialysis:: No - Past Medical Illness Medical History: Past Medical History (Last Reviewed 08/08/21 @ 11:16 by Vicki Anaya) Bronchiectasis without acute exacerbation J47.9 Bronchitis J40 Carotid artery disease I77.9 Per Carotid Duplex 06/12/2017: mild calcific plaque in proximal right internal with <50% stenosis; Moderate calcific plaque in proximal left intrnal carotid with <50% stenosis CHF (congestive heart failure) I50.9 Diabetes E11.9 Essential hypertension I10 Infection and inflammatory reaction due to other internal prosthetic devices, implants and grafts, initial encounter T85.79XA MRSE infected deep tissue (seroma) post op wound lumbar spine Nonrheumatic aortic (valve) stenosis I35.0 TAVR with [facility] on 07/28/2021; Obesities, morbid E66.01 Osteoarthritis M19.90 Secondary pulmonary hypertension Sleep apnea with use of continuous positive airway pressure (CPAP) G47.30 Spondylisthesis M43.10 - Past Surgical History Surgical History: Past Surgical History (Last Reviewed 08/08/21 @ 11:16 by Vicki Anaya) Emergency surgery for infection in incision 08/12/2015 H/O tubal ligation Z98.51 01/1972 H/O: hysterectomy Z90.710 02/1974 History of appendectomy Z90.49 02/1974 History of bilateral cataract extraction Z98.41, Z98.42 Lt 10/15; Rt 12/05 History of carpal tunnel release Z98.890 Left- 10/1993, right 11/1993 History of right and left heart catheterization Onset Date: 12/31/19 Z98.890 Normal coronary arteries. Normal LV size, wall motion,and systolic function. Normal Left Ventricular systolic function. LVEF: by LV gram 75 %. Elevated Left Ventricular End Diastolic Pressure Aortic Valve Stenosis- Moderate. The patient has pulmonary hypertension which is moderate. RECOMMENDATIONS: Start lasix 20mg po qd; hold on TAVR as aortic valve appears moderately stenotic. If pt gets no improvement with diuretic therapy, will consider referal for TAVR combined with moderate pulmonary HTN. 12/31/19 per AKIRA @ [facility] History of tonsillectomy Z90.89 mid 1930s History of total hip replacement Z96.649 right, 01/2005 History of total left hip replacement Z96.642 10/2001 History of total left knee replacement Z96.652 03/2009 History of total right knee replacement Z96.651 02/2014 History of transcatheter aortic valve replacement (TAVR) Onset Date: ~07/28/21 Z95.2 Successful transfemoral implantation of a 23mm Eddy-Ezekiel S3 THV @ [facility] 07/28/21 History of transesophageal echocardiography ([facility]RAD) Onset Date: 12/31/19 Z92.89 History of YAG laser capsulotomy of lens of right eye Z98.41 07/2008 HX of fixation of lumbar spine with rods Rectal Repair 02/1974 S/P arthroscopic surgery of right knee Z98.890 12/2003 S/P excision of Corona's neuroma Z98.890, Z86.69 L foot, 02/1990 S/P laminectomy with spinal fusion Z98.1 S/P removal of left ovary Z90.721 02/1974 Spinal lumbar surgery 06/30/15 Surgical History: total hip arthroplasty - x 2, total knee arthroplasty - bilateral, last in 2013, - - lens implant x 2 - Family History Summary Family History: Family History (Last Reviewed 08/08/21 @ 11:16 by Vicki Anaya) Mother Heart disease Hypertension Father Hypertension Brother Heart disease Sister Hypertension Brother Heart disease Social History - Smoking History Smoking Status: Never smoker - Occupation Occupation (List type of work in comments):: Retired - Hobbies, Recreation, Social Activities Hobbies: Sewing - rosy, knit, sew and crafts, Reading - listrening to Audio books while crafting, 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 Left click = Reports ([place]) Review of Present Symptoms: Reports: Shortness of Breath with Exertion, Dizziness/Lightheadedness - prior to the TAVR would find it more difficult when suddenly moving getting up or down or turning side to side., Fatigue, Appetite - Normal, Appetite - Special Diet - always watched my diet; low sodium low sugar, low sweets etc., Sleep - Normal. Denies: Sexual Changes - Pain Is Patient Pain Free?: Yes Pain Location: none Pain Level: 07/14 - Two hip replacements, two shoulder replacements, two knee replacements; alot of arthritis in the spine. The pain level varies daily and has to adjust level of activities accordingly. Risk Factor Assessment - Chief Complaint Chief Complaint: This is an 85 yr old female patient of Dr. Causey who presentst o cardiac rehab following recent heart valve replacement. She has a previous history of pulmonary hypertension, hypertension, CHF, and sleep apnea. She recently underwent a TAVR procedure on at the [facility] [place]. - Vital Signs Temperature: 98.6 F Respiratory Rate: 16 Pulse Ox: 95 Blood Pressure: 144/62 Nailbeds:: pink - Pulse Pulse Rate: 68 Pulse Rhythm: Regular - Hypertension Blood Pressure Sitting - Left Arm: 144/62 - Blood Cholesterol/Lipids Total Cholesterol (mg/dL) Goal = less than 200 mg/dL: 177 - 02/18/2021 HDL Cholesterol (mg/dL) Goal = less than 40 mg/dL: 53 LDL Cholesterol (mg/dL) Goal = less than 70 mg/dL: 82 Triglycerides (mg/dL) Goal = less than 150 mg/dL: 208 - Diabetes Diabetic History: Type II, Medication Dependent - Obesity Height: 4 ft 10 in Weight:: 186 lb Weight in Pounds: 186.0 lbs Weight Source: Standing Scale Body Mass Index (BMI): 38.8 Nutritional Referral for Obesity: Yes - Structured weight loss program - Physical Inactivity Physical Inactivity: None - Risk Stratification Risk Guidelines: Lowest Risk: Risk Factor for Smoking, Risk Factor for Diabetes - Glucose 161, HbA1c 7.6%, Risk Factor for Depression, Moderate Risk: Risk Factor for Dyslipidemia, Risk Factor for Hypertension - 1424/62, Highest Risk: Risk Factor for Obesity, Risk Factor for Sedentary Lifestyle - Family History Family History: Family History (Last Reviewed 08/08/21 @ 11:16 by Vicki Anaya) Mother Heart disease Hypertension Father Hypertension Brother Heart disease Sister Hypertension Brother Heart disease Motivation - Motivation to Participate On a scale of 1 to 10, how prepared are you to commit to attending program?: 7 - Feels something have to do What do you see as barriers to successfully being able to complete the program?: back pain (chronic arthritis) What do you see as the benefits of succesfully completing the program? In other words, what do you hope to get out of participating in the program?: increase strength, energy and general feeling better Are there issues you are dealing with that will interfere with completing the program?: none/ transportation Do you have a spouse or signficant other, family or friends who will help support you to complete the program?: yes
[2021-09-06 08:27] VITALS: BP 144/62; BMI 38.8
[2021-09-06 08:47] VITALS: BP 144/62; PULSE 68; RESP 16; TEMP 37; O2SAT 95; BMI 38.8
== END 2021-09-06 23:59 | disposition home or self-care (01) ==
LOC: CR 07:51
PROVIDERS: PCP Family Medicine; Referring Provider Internal Medicine Cardiovascular Disease; Visit Provider Internal Medicine Cardiovascular Disease
DX: R06.02 Shortness of breath (principal); I27.20 Pulmonary hypertension, unspecified; I11.0 Hypertensive heart disease with heart failure; I50.9 Heart failure, unspecified; G47.33 Obstructive sleep apnea (adult) (pediatric); E66.9 Obesity, unspecified; Z68.38 Body mass index [BMI] 38.0-38.9, adult; Z95.2 Presence of prosthetic heart valve

== ENCOUNTER 2021-09-26 13:00 | Outpatient (RCR) | payer MEDICARE, SELFPAY | END 2021-10-01 23:59 | LOC: CR 13:00 | PROVIDERS: PCP Family Medicine; Referring Provider Internal Medicine Cardiovascular Disease; Visit Provider Internal Medicine Cardiovascular Disease | DX: I35.0 Nonrheumatic aortic (valve) stenosis (principal); Z95.2 Presence of prosthetic heart valve | CPT/HCPCS: 93798 ==

== ENCOUNTER → 2021-10-20 | Outpatient (CLI) | payer MEDICARE, SELFPAY ==
[2021-10-04 06:35] VITALS: BMI 37.6
--- NOTE | 2021-10-20 13:06 | BI_ITS ---
MAMMOGRAPHY - BILATERAL SCREENING REASON FOR EXAM: Female, 85 years old. Routine annual screening examination. PERTINENT HISTORY: Non-contributory. TECHNIQUE: Digital bilateral breast shahnaz (3D mammographic acquisition) in the CC and MLO projections. 2-D mediolateral oblique (MLO) and craniocaudad (CC) views of both breasts were obtained. CAD: Full Field Digital Mammography with Computer Added Detection was performed. COMPARISON: Comparison is made with prior examination dated 09/29/2009. FINDINGS: Breast Composition: The breasts are almost entirely fatty. There are no dominant masses or suspicious calcifications. No other significant abnormalities are identified. There has been no significant change since the prior study. BI/SCRN MAMM (CAD)W/SHAHNAZ BILAT IMPRESSION: Stable bilateral screening mammogram. Yearly follow-up mammogram recommended. (A) ASSESSMENT CATEGORY: BIRADS Category 1: Negative. A letter regarding these results will be sent to the patient by the facility within 30 days. Approximately 10% of breast cancers are not detected by mammography. A normal mammogram should not delay biopsy of a clinically suspicious abnormality. [id number] Electronically Signed: Saúl Gaitan MD at 14:08 EDT ,
--- NOTE | 2021-10-20 13:36 | BD_ITS ---
STUDY: DUAL ENERGY X-RAY ABSORPTIOMETRY / DXA REASON FOR EXAM: Female, 85 years old. Z780 TECHNIQUE: Bone Mineral Density (BMD) measurements of both forearms were obtained. COMPARISON: None. FINDINGS: Right Forearm: g/cm2 (0.507) / T-score (-3.1) / Z-score ( ) Left Forearm: g/cm2 (0.483) / T-score (-3.5) / Z-score ( ) BD/Dexa Bone Density/Append Skel IMPRESSION: The patient is considered osteoporotic as outlined below according to World Connor Organization (WHO) criteria with a high fracture risk. Reference Information: The T-score is the number of standard deviations above or below the standard which is normal for young adults at their peak bone mineral density. The World Health Organization (WHO) interprets the T-scores as follows: Above -1 Normal bone density Between -1 and -2.5 Osteopenia Equal to / or below -2.5 Osteoporosis As a practical clinical guideline, osteopenia may be graded as follows: Mild -1 through -1.5 Moderate -1.6 through -2.0 Severe -2.1 through -2.4 The Z-score is the number of standard deviations above or below age-matched controls. A Z-score of less than -1.5 would be considered abnormal. References: 1. NIH Osteoporosis and Related Bone Diseases www osteo.org 2. International Society for Clinical Densitometry www iscd.org 3. National Osteoporosis Foundation www nof.org Electronically Signed: Saúl Gaitan MD at 15:27 EDT ,
== END | disposition home or self-care (01) ==
LOC: OPBD 13:01
PROVIDERS: PCP Family Medicine; Visit Provider Family Medicine
DX: Z12.31 Encounter for screening mammogram for malignant neoplasm of breast (principal); Z78.0 Asymptomatic menopausal state
CPT/HCPCS: 77063; 77067; 77081

== ENCOUNTER → 2021-10-26 | Outpatient (CLI) | payer MEDICARE, SELFPAY ==
[2021-10-04 06:35] VITALS: BMI 37.6
[2021-10-26 10:49] LABS: PTHIN 44.9 pg/mL (18.4-80.1)
[2021-10-26 10:52] LABS: ALB/GLOB Ratio 1.3 RATIO (0.9-2.4); AST(SGOT) 20 U/L (15-37); Alanine Aminotransfer ALT/SGPT 23 U/L (13-56); Albumin, Serum 3.8 g/dL (3.2-5.0); Alkaline Phosphatase 97 U/L (45-117); Anion Gap 7 (5-15); BUN 44 mg/dL (7-18); BUN/Creat Ratio 34.4 RATIO (10-20); Calcium,Total 10.4 mg/dL (8.5-10.1); Chloride 103 mmol/L (98-107); Creatinine, Serum 1.28 mg/dL (0.55-1.02); EST Glomerular Filtration Rate 42 mL/min (>60); Est Glom Filt Rate - Afr Amer 51 mL/min (>60); Glucose 169 mg/dL (74-106); Potassium 3.7 mmol/L (3.5-5.1); Protein, Total 6.8 g/dL (6.4-8.2); Sodium Level 138 mmol/L (136-145)
[2021-10-26 11:08] LABS: BNP,B-Type NATRIURETIC PEPTIDE 126.9 pg/mL (0-100)
[2021-10-26 19:15] LABS: Hepatitis C Antibody Non-Reactive (Nonreactive); Vitamin D,25 Hydroxy 142.8 ng/mL
== END | disposition home or self-care (01) ==
LOC: MTLAB 08:12
PROVIDERS: PCP Family Medicine; Referring Provider Family Medicine; Visit Provider Family Medicine
DX: E83.52 Hypercalcemia (principal); I27.20 Pulmonary hypertension, unspecified; I50.30 Unspecified diastolic (congestive) heart failure; E11.22 Type 2 diabetes mellitus with diabetic chronic kidney disease; N18.9 Chronic kidney disease, unspecified; Z11.59 Encounter for screening for other viral diseases; I35.0 Nonrheumatic aortic (valve) stenosis; Z95.2 Presence of prosthetic heart valve
CPT/HCPCS: 36415; 80053; 82306; 83036; 83880; 83970; 86803; 93798

== ENCOUNTER 2021-10-28 13:00 | Outpatient (RCR) | payer MEDICARE, SELFPAY ==
--- NOTE | 2021-10-04 06:22 | CR.ITP_ITS ---
Diagnosis Exercise - 30-day Assessment - Visit Date of Eval: 10/04/21 Session #:: 8 - patient missed two sessions due to vertigo - Physician Prescribed Exercise Modalities: NuStep, SciFit Frequency: 3x/week for 12 weeks [36 sessions] Intensity: 60-80% of age predicted maximum heart rate reserve Current METSs:: 3.5 Target Heart Rate:: 87-113 Current RPE:: 11-12 Maximum Excercise HR:: 89 Resting Blood Pressure: 164/54 Maximum Exercise Blood Pressure: 170/50 EKG Type: NSR with occasional PACs Current Physical Activity or Exercising minutes: 39 - Outcomes & Goals Goals:: Verbalizes understanding of THR, RPE & goal METS by session 6, Documents in home exercise log/reports 30 min aerobic 5 day/wk by DC, Demonstrates accurate pulse taking by DC - Intervention & Plan Exercise Program Goals: Instruct on personal THR & RPE, Instruct on MET level & personal MET goal, Show patient to take own pulse /validate performance until accurate, Instruct on home exercise - 30-day Reassessments 30 day Reassessments:: Progressing - Physical Activity Home Exercise Physical Activity - Home Exercise: Safe Exercise, Warm-up, Self-monitoring, Cool-Down, Home Exercise > 30 min Daily, Sitting Time <3 hours/daily - Outcomes & Goals Outcomes/Goals: Demonstrates correct Warm-up/exercise Cool-Down (S3) if = 2.5 METs, Verbalizes symptoms of exercise intolerance by Session 3 (S3), Demonstrate safe equipment use (S3) & follows exercise prescrition (6) - Intervention & Plan Plan/Intervention: Instruct warm-up & cool-down if exercising at > 2 METs, Instruct on symptoms of exercise intolerance & actions to take, Instruct & monitor on saf, Assess intial functional capacity & safety risk - 30-day Reassessments 30 day Reassessments:: Progressing Nutrition - Initial Assessment Nutrition - 30-Day Assessment - Program Goals Nutrition Program Goals: LDL <100 optimal. 100 - 129 Near optimal. 130 - 159 Borderline High. 160 - 189 High. Total Cholesterol <200 desirable. 200 - 239 Borderline High. >/= 240 High. HDL < 40 Low >/=60 High. Triglycerides <150 desirable. <199 optimal. VlDL 5 - 40. HgbA1C <7%. BMI <25 Patient has diagnosis of Hyperlipidemia (ICD E78)?: Yes - Visit Date of Assessment:: 10/04/21 Session #:: 8 - Cholesterol/Lipids Triglycerides (mg/dL): 208 Total Cholesterol (mg/dL): 177 LDL Cholesterol (mg/dL): 82 HDL Cholesterol (mg/dL): 53 Determine presence & major risk factors that modify LDL goal: Hypertension or hypertensive medication, Age men > 45 years; women >/= 55 years Outcomes/Goals: Pt IDs own risk factors & lifestyle modifications by Session 10, Verbalizes symptoms of angina & response by session 3., Pt independently manages Intervention/Plan: Instruct on personal lipid levels & lipid goals/NCEP guidel jake, Instruct on cholesterol Referral to dietitian:: Yes - medical nutrition therapy 30-day Reassessments:: Progressing - Diabetes (Other Core Measures) Diabetes Type: Diagnosis Type II ICD-10 E11 Fasting blood glucose:: 161 Hgb A1C (4.2 -6.3): 7.6 Insulin dependent injection/pump?: No Non-Insulin Dependent?: No Do you monitor your blood sugar at home?: No 30-day Reassessments:: Progressing - Weight Mgt (Other Care) Not Applicable: No Height: 4 ft 10 in Weight:: 180 lb BMI: 37.6 Diagnosis Overweight/Obesity BMI> 30% ICD-10 E66: Yes Diagnosis High BMI/Morbid Obesity BMI> 35% ICD-10 Z68: Yes Outcomes/Goals: Pt sets, maintains & shows weight loss goal & trend during rehab Intervention/Plan: Instruct on ideal BMI & set weight loss goal w/patient, Assist pt to ID & incorporate diet changes for weight loss by S9, Refer to Structured Weight Loss program as appropriate, Encourage goal of using 250- 300dcal per session for weight loss 30 day Reassessments:: Progressing Reassessment Notes & Comments:: Patient has lost 6 pounds - Healthy Eating Habits Will attend diet classes:: Yes Outcomes/Goals:: Consume diet rich in vegs,fruits,whole grain/high fiber,fish,lean meat, Limit sat/trans fats,cholesterol & added salts & sugars Intervention/Plan:: Assess current eating habits 30-day Reassessments:: Progressing - Education Gave educational materials for:: Healthy eating Nutrition - 60-Day Assessment Nutrition - 90-Day Assessment Nutrition - Final Assessment Medical - Initial Assessment Medical- 30-Day Assessment - Visit Date of Eval: 10/04/21 Session #:: 8 - Medication Compliance Preventative Medication(s):: Aspirin, Clopidogrel/P2Y12 inhibit, Statin/lipid, Beta danielle H/O mental health issues: depression, anxiety, or addiction?: No Doesn?t believe in the benefits of treatment?: No Believes medications are unnecessary or harmful?: No Has a concern about medication side effects?: No Expresses concern over the cost of medications?: No Outcomes/Goals: Verbalizes medications,desired effect & common side effects @ DC, Pt self-reports following medication regimen, Keeps card in wallet w/medications listed by DC Interventions/plans: Instruct on medication effects & side effects, Review medication list w/patient every two weeks, Instruct importance of taking meds as ordered & assist problem solving 30-day Reassessments:: Met - Tobacco Use Tobacco Use: Non-smoker - Hypertension Hypertension Diagnosis:: Hypertension ICD-10 I10 Resting Blood Pressure:: 154/48 [place] [employer] Hypertension Guidelines: [place] [employer] Hypertension Guidelines. Normal BP Less than 120/80. Elevated BP 120/80. Hypertension Stage 1: BP 130-139/80-89. Hypertesnion Stage 2: BP 140 or higher/90 or higher. Hypertension Crisis: BP higher than 180/120 Peak Exercise Blood Pressure:: 170/50 Outcomes/Goals: Able to verbalize/achieve optimal blood pressure <130/80, Incorporates diet changes & exercise for blood pressure control by DC Interventions/plan: Instruct on optimal blood pressure, hypertension & medications, Instruct on effects of sodium, alcohol, stress, exercise &hyper tension 30 day Reassessments:: Not Met - Tobacco Cessation Referral Smoking Cessation Referral:: No Individual Education/Counseling:: No Education Schedule Given:: Yes Medical- 60-Day Assessment Medical- 90-Day Assessment Medical - Final Assessment Psychosocial - Initial Assess Psychosocial - 30-Day Assess - VIsit Date of Eval: 10/04/21 Session #:: 8 Not Applicable: Yes - Psychosocial Test Tool Used:: PHQ-9 Questionnaire phq-9 Severity: Severity. 1-4 Minimal Depression. 5-9 Mild Depression. 10-14 Moderate Depression. 15-19 Moderately Sever Depression. 20-27 Severe Depression. Rule: - Referral to Behavioral Health PS - Interventions: Yes Attend Stress Management Classes, No Referral to Behavioral Health if PHQ-9 score >9:, No Referral to [facility] Community [facility], No Referral to Physician if PHQ-9 if score is 5-9: - Outcomes/Goals: See list Psychosocial Outcomes/Goals:: ID's personal stressors & 2 strategies to manage stress by discharge - Intervention/Plan: See List Interventions/Plan:: Assess stressors,coping strategies & signs of derpression on admission, Instruct/assist pt to develop coping & personal stress Mgt strategies, Instruct patient to recognize signs & symptoms of depression, Instruct patient to recog - 30-day Reassessments: 30 day Reassessments:: Progressing Psychosocial - 60-Day Assess Psychosocial - 90-Day Assess Psychosocial - Final Assessmen Patient Health Questionnaire 30-Day Re-eval Assessment 1. Little interest or pleasure in doing things: Several days 2. Feeling down, depressed, or hopeless: Several days 3. Trouble falling or staying asleep, or sleeping too much: Not at all 4. Feeling tired or having little energy: More than half the days 5. Poor appetite or overeating: Not at all 6. Feeling bad about yourself -- or that you are a failure or have let yourself or your family down: Not at all 7. Trouble concentrating on things, such as reading the newspaper or watching television: Not at all 8. Moving or speaking so slowly that other people could have noticed. Or the opposite - being so fidgety or restless that you have been moving around a lot more than usual: Several days 9. Thoughts that you would be better off , or of hurting yourself in some way: Not at all How difficult have these problems made it for you to do your work, take care of things at home, or get along with other people?: Somewhat difficult Total Score: 5 Self-Efficacy 30-Day Re-eval Assessment We would like to know how confident you are in doing certain activities. Please select your confidence level for:: Select your confidence level for the following using the scale 1-10 where 1 is not at all confident and 10 is totally confident. Your score is the average of all 6 responses. Fatigue: How confident are you that you can keep the fatigue caused by your disease from interfering with the things you want to do? Select Number: 2 Physical Discomfort or Pain: How confident are you that you can keep the physical discomfort or pain of your disease from interfering with the things you want to do? Select Number: 2 Emotional Distress: How confident are you that you can keep the emotional distress caused by your disease from interfering with the things you want to do? Select Number: 3 Other Symptoms or Health Problems: How confident are you that you can keep other symptoms or health problems from interfering with the things you want to do? Select Number: 4 Different Tasks and Activities: How confident are you that you can do the different tasks and activities needed to manage your health condition so as to reduce your need to see a doctor? Select Number: 3 Medication: How confident are you that you can do things other than just taking medication to reduce how much your illness affects your everyday life? Select Number: 2 Total Score:: 2 Nutrition Survey
[2021-10-04 06:35] VITALS: BP 154/48; BP 164/54; BP 170/50; BMI 37.6
== END 2021-11-01 23:59 ==
LOC: CR 13:00
PROVIDERS: PCP Family Medicine; Referring Provider Internal Medicine Cardiovascular Disease; Visit Provider Internal Medicine Cardiovascular Disease
DX: I35.0 Nonrheumatic aortic (valve) stenosis (principal); Z95.2 Presence of prosthetic heart valve
CPT/HCPCS: 93798

== ENCOUNTER 2021-11-18 10:37 | Outpatient (CLI) | payer MEDICARE, SELFPAY ==
[2021-10-04 06:35] VITALS: BMI 37.6
[2021-11-04 11:46] VITALS: BMI 39.2
--- NOTE | 2021-11-19 07:31 | PFT ---
INTRODUCTION: The patient is an 85-year-old female that presents for pulmonary function studies secondary to a diagnosis of dyspnea. Respiratory therapy reported good patient effort. Bronchodilators were used during testing. INTERPRETATION: Forced expiration spirometry demonstrates no evidence of a large airways obstructive ventilatory defect. There was no significant response to aerosolized bronchodilators. Spirograms are of good quality and plateau normally. Body plethysmography was performed and reveals lung volumes to be within normal limits. Diffusing capacity by single breath CO is also within normal limits. IMPRESSION: Grossly normal pulmonary function studies.
== END 2021-11-18 23:59 | disposition home or self-care (01) ==
LOC: PSN 10:39
PROVIDERS: PCP Family Medicine; Referring Provider Nurse Practitioner Acute Care; Visit Provider Nurse Practitioner Acute Care
DX: R06.00 Dyspnea, unspecified (principal); I35.0 Nonrheumatic aortic (valve) stenosis; Z95.2 Presence of prosthetic heart valve
CPT/HCPCS: 93798; 94060; 94726; 94729

== ENCOUNTER → 2021-11-22 | Outpatient (CLI) | payer MEDICARE, SELFPAY ==
[2021-10-04 06:35] VITALS: BMI 37.6
[2021-11-04 11:46] VITALS: BMI 39.2
[2021-11-22 12:47] VITALS: PULSE 60; PULSE 72; PULSE 77; PULSE 79; PULSE 81; PULSE 83; PULSE 96; O2SAT 93; O2SAT 94; O2SAT 95; O2SAT 96
--- NOTE | 2021-11-22 13:27 | WT_ITS ---
PSN 6 Minute Walk Test 6 Minute Walk Test 6 Minute Walk Test: 6 Minute Walk Test PSN:6-Minute Walk Test Start: 11/22/21 12:47 Freq: Status: Active Protocol: [id number] Document 11/22/21 12:47 [facility] (Rec: 11/22/21 12:51 [facility] [id number]) 6 Minute Walk Test Date Performed 11/22/21 Time Performed 12:30 Height 4 ft 10.5 in Weight: 83.915 kg Weight in Pounds 185.[address]: Chica Morataya [employer] Assistive device used: Cane Pre-test Oxygen Delivery Method Room Air Pulse Ox (%) 96 Pulse Rate (60-100 beats/min) 60 Dyspnea Tyler Scale (0-10) 1 1st minute Oxygen Delivery Method Room Air Pulse Ox (%) 94 Pulse Rate (60-100 beats/min) 72 Dyspnea Tyler Scale (0-10) 2 Number of Rests Taken 0 2nd minute Oxygen Delivery Method Room Air Pulse Ox (%) 94 Pulse Rate (60-100 beats/min) 77 Dyspnea Tyler Scale (0-10) 3 Number of Rests Taken 1 Reported Symptoms Increased Work of Breathing 3rd minute Oxygen Delivery Method Room Air Pulse Ox (%) 93 Pulse Rate (60-100 beats/min) 81 Dyspnea Tyler Scale (0-10) 3 Number of Rests Taken 1 Reported Symptoms Increased Work of Breathing 4th minute Oxygen Delivery Method Room Air Pulse Ox (%) 96 Pulse Rate (60-100 beats/min) 79 Dyspnea Tyler Scale (0-10) 2 Number of Rests Taken 0 5th minute Oxygen Delivery Method Room Air Pulse Ox (%) 95 Pulse Rate (60-100 beats/min) 81 Dyspnea Tyler Scale (0-10) 3 Number of Rests Taken 1 Reported Symptoms Increased Work of Breathing 6th minute Oxygen Delivery Method Room Air Pulse Ox (%) 94 Pulse Rate (60-100 beats/min) 83 Dyspnea Tyler Scale (0-10) 3 Number of Rests Taken 0 Reported Symptoms Increased Work of Breathing Post-test Oxygen Delivery Method Room Air Pulse Ox (%) 95 Pulse Rate (60-100 beats/min) 96 Dyspnea Tyler Scale (0-10) 1 Full Laps Walked 8 Partial Lap, Number of Tiles Walked 12 Total Distance Walked (ft) 484 Interpretation Interpretation: The patient was able to ambulate 484 feet over the course of 6 minutes on room air with the assistance of a cane and 3 breaks. The patient experienced no significant desaturation or tachycardia during testing. These findings are consistent with a musculoskeletal limitation exercise tolerance. Recommendations Recommendations: No supplemental oxygen is indicated at this time.
== END | disposition home or self-care (01) ==
LOC: PSN 12:28
PROVIDERS: PCP Family Medicine; Referring Provider Nurse Practitioner Acute Care; Visit Provider Nurse Practitioner Acute Care
DX: R06.00 Dyspnea, unspecified (principal)
CPT/HCPCS: 94618

== ENCOUNTER 2021-11-30 13:00 | Outpatient (RCR) | payer MEDICARE, SELFPAY ==
[2021-10-04 06:35] VITALS: BMI 37.6
[2021-11-02 01:04] VITALS: BP 154/48; BP 164/54; BP 170/50
--- NOTE | 2021-11-04 11:20 | PCM.CR.ITP ---
Diagnosis Exercise - 60-day Assessment - Visit Date of Eval: 11/04/21 Session #:: 20 - Physician Prescribed Exercise Modalities: NuStep, SciFit Frequency: 3x/week for 12 weeks [36 sessions] Intensity: 60-80% of age predicted maximum heart rate reserve Current METSs:: 4.5 Target Heart Rate:: 87-113 Current RPE:: 12-13 Maximum Excercise HR:: 94 Resting Blood Pressure: 140/58 Maximum Exercise Blood Pressure: 152/44 EKG Type: NSR to sinus tachycardia with rare PACs - Outcomes & Goals Goals:: Verbalizes understanding of THR, RPE & goal METS by session 6, Documents in home exercise log/reports 30 min aerobic 5 day/wk by DC, Demonstrates accurate pulse taking by DC - Intervention & Plan Exercise Program Goals: Instruct on personal THR & RPE, Instruct on MET level & personal MET goal, Show patient to take own pulse /validate performance until accurate, Instruct on home exercise - 30-day Reassessments 30 day Reassessments:: Progressing - Physical Activity Home Exercise Physical Activity - Home Exercise: Safe Exercise, Warm-up, Self-monitoring, Cool-Down, Home Exercise > 30 min Daily, Sitting Time <3 hours/daily - Outcomes & Goals Outcomes/Goals: Demonstrates correct Warm-up/exercise Cool-Down (S3) if = 2.5 METs, Verbalizes symptoms of exercise intolerance by Session 3 (S3), Demonstrate safe equipment use (S3) & follows exercise prescrition (6) - Intervention & Plan Plan/Intervention: Instruct warm-up & cool-down if exercising at > 2 METs, Instruct on symptoms of exercise intolerance & actions to take, Instruct & monitor on saf, Assess intial functional capacity & safety risk - 30-day Reassessments 30 day Reassessments:: Progressing Nutrition - Initial Assessment Nutrition - 30-Day Assessment Nutrition - 60-Day Assessment - Program Goals Nutrition Program Goals: LDL <100 optimal. 100 - 129 Near optimal. 130 - 159 Borderline High. 160 - 189 High. Total Cholesterol <200 desirable. 200 - 239 Borderline High. >/= 240 High. HDL < 40 Low >/=60 High. Triglycerides <150 desirable. <199 optimal. VlDL 5 - 40. HgbA1C <7%. BMI <25 Patient has diagnosis of Hyperlipidemia (ICD E78)?: Yes - Visit Date of Assessment:: 11/04/21 Session #:: 20 - Cholesterol/Lipids Triglycerides (mg/dL): 208 Total Cholesterol (mg/dL): 177 LDL Cholesterol (mg/dL): 82 HDL Cholesterol (mg/dL): 53 Determine presence & major risk factors that modify LDL goal: Hypertension or hypertensive medication, Family history of premature CHD in Male < 55 years: female <65 yearsFa, Age men > 45 years; women >/= 55 years Outcomes/Goals: Pt IDs own risk factors & lifestyle modifications by Session 10, Verbalizes symptoms of angina & response by session 3., Pt independently manages Intervention/Plan: Instruct on personal lipid levels & lipid goals/NCEP guidelines, Instruct on cholesterol Referral to dietitian:: Yes - Medical Nutrition Therapy 30-day Reassessments:: Progressing - Diabetes (Other Core Measures) Diabetes Type: Diagnosis Type II ICD-10 E11 Fasting blood glucose:: 161 Hgb A1C (4.2 -6.3): 7.6 Insulin dependent injection/pump?: No Non-Insulin Dependent?: Yes Do you monitor your blood sugar at home?: Yes Referral to Diabetic Clinic:: Yes Outcomes/Goals:: Able to state symptoms of, Able to state, Able to state Intervention/Plan:: Instruct on, Refer to, Instruct on 30-day Reassessments:: Progressing - Weight Mgt (Other Care) Not Applicable: No Height: 4 ft 10 in Weight:: 187 lb 8 oz BMI: 39.2 Diagnosis Overweight/Obesity BMI> 30% ICD-10 E66: Yes Diagnosis High BMI/Morbid Obesity BMI> 35% ICD-10 Z68: Yes Outcomes/Goals: Pt sets, maintains & shows weight loss goal & trend during rehab Intervention/Plan: Instruct on ideal BMI & set weight loss goal w/patient, Assist pt to ID & incorporate diet changes for weight loss by S9, Refer to Structured Weight Loss program as appropriate, Encourage goal of using 250-300dcal per session for weight loss 30 day Reassessments:: Not Met - Healthy Eating Habits Will attend diet classes:: Yes Outcomes/Goals:: Consume diet rich in vegs,fruits,whole grain/high fiber,fish,lean meat, Limit sat/trans fats,cholesterol & added salts & sugars Intervention/Plan:: Assess current eating habits 30-day Reassessments:: Not Met - Education Gave educational materials for:: Signs & symptoms of hypoglycemia, Signs & symptoms of hyperglycemia, Relate diabetes to coronary artery disease, Healthy eating Nutrition - 90-Day Assessment Nutrition - Final Assessment Medical - Initial Assessment Medical- 30-Day Assessment Medical- 60-Day Assessment - Visit Date of Eval: 11/04/21 Session #:: 20 - Medication Compliance Preventative Medication(s):: Aspirin, Clopidogrel/P2Y12 inhibit, Statin/lipid, Beta danielle H/O mental health issues: depression, anxiety, or addiction?: No Doesn?t believe in the benefits of treatment?: No Believes medications are unnecessary or harmful?: No Has a concern about medication side effects?: No Expresses concern over the cost of medications?: No Outcomes/Goals: Verbalizes medications,desired effect & common side effects @ DC, Pt self-reports following medication regimen, Keeps card in wallet w/medications listed by DC Interventions/plans: Instruct on medication effects & side effects, Review medication list w/patient every two weeks, Instruct importance of taking meds as ordered & assist problem solving 30-day Reassessments:: Progressing - Tobacco Use Tobacco Use: Non-smoker - Hypertension Hypertension Diagnosis:: Hypertension ICD-10 I10 Resting Blood Pressure:: 140/58 [place] [employer] Hypertension Guidelines: [place] [employer] Hypertension Guidelines. Normal BP Less than 120/80. Elevated BP 120/80. Hypertension Stage 1: BP 130-139/80-89. Hypertesnion Stage 2: BP 140 or higher/90 or higher. Hypertension Crisis: BP higher than 180/120 Peak Exercise Blood Pressure:: 152/44 Outcomes/Goals: Able to verbalize/achieve optimal blood pressure <130/80, Incorporates diet changes & exercise for blood pressure control by DC Interventions/plan: Instruct on optimal blood pressure, hypertension & medications, Instruct on effects of sodium, alcohol, stress, exercise &hypertension 30 day Reassessments:: Not Met - Tobacco Cessation Referral Smoking Cessation Referral:: No Individual Education/Counseling:: No Education Schedule Given:: Yes Medical- 90-Day Assessment Medical - Final Assessment Psychosocial - Initial Assess Psychosocial - 30-Day Assess Psychosocial - 60-Day Assess - VIsit Date of Eval: 11/04/21 Session #:: 20 Not Applicable: Yes History of previous Mental disease:: No - Psychosocial Test Tool Used:: PHQ-9 Questionnaire phq-9 Severity: Severity. 1-4 Minimal Depression. 5-9 Mild Depression. 10-14 Moderate Depression. 15-19 Moderately Sever Depression. 20-27 Severe Depression. Rule: - Referral to Behavioral Health PS - Interventions: Yes Attend Stress Management Classes, No Referral to Behavioral Health if PHQ-9 score >9:, No Referral to [facility], No Referral to Physician if PHQ-9 if score is 5-9: - Outcomes/Goals: See list Psychosocial Outcomes/Goals:: ID's personal stressors & 2 strategies to manage stress by discharge - Intervention/Plan: See List Interventions/Plan:: Assess stressors,coping strategies & signs of derpression on admission, Instruct/assist pt to develop coping & personal stress Mgt strategies, Instruct patient to recognize signs & symptoms of depression, Instruct patient to recog - 30-day Reassessments: 30 day Reassessments:: Progressing Psychosocial - 90-Day Assess Psychosocial - Final Assessmen Patient Health Questionnaire 60-Day Re-eval Assessment 1. Little interest or pleasure in doing things: Several days 2. Feeling down, depressed, or hopeless: Several days 3. Trouble falling or staying asleep, or sleeping too much: Not at all 4. Feeling tired or having little energy: More than half the days 5. Poor appetite or overeating: Not at all 6. Feeling bad about yourself -- or that you are a failure or have let yourself or your family down: Not at all 7. Trouble concentrating on things, such as reading the newspaper or watching television: Not at all 8. Moving or speaking so slowly that other people could have noticed. Or the opposite - being so fidgety or restless that you have been moving around a lot more than usual: More than half the days 9. Thoughts that you would be better off , or of hurting yourself in some way: Not at all How difficult have these problems made it for you to do your work, take care of things at home, or get along with other people?: Somewhat difficult Total Score: 6 Self-Efficacy 60-Day Re-eval Assessment We would like to know how confident you are in doing certain activities. Please select your confidence level for:: Select your confidence level for the following using the scale 1-10 where 1 is not at all confident and 10 is totally confident. Your score is the average of all 6 responses. Fatigue: How confident are you that you can keep the fatigue caused by your disease from interfering with the things you want to do? Select Number: 4 Physical Discomfort or Pain: How confident are you that you can keep the physical discomfort or pain of your disease from interfering with the things you want to do? Select Number: 4 Emotional Distress: How confident are you that you can keep the emotional distress caused by your disease from interfering with the things you want to do? Select Number: 4 Other Symptoms or Health Problems: How confident are you that you can keep other symptoms or health problems from interfering with the things you want to do? Select Number: 4 Different Tasks and Activities: How confident are you that you can do the different tasks and activities needed to manage your health condition so as to reduce your need to see a doctor? Select Number: 4 Medication: How confident are you that you can do things other than just taking medication to reduce how much your illness affects your everyday life? Select Number: 4 Total Score:: 4 Nutrition Survey
[2021-11-04 11:46] VITALS: BP 140/58; BP 152/44; BMI 39.2
--- NOTE | 2021-12-02 08:21 | PCM.CR.ITP ---
Diagnosis Exercise - 90-day Assessment - Visit Date of Eval: 12/02/21 Session #:: 30 - Physician Prescribed Exercise Modalities: NuStep, SciFit Frequency: 3x/week for 12 weeks [36 sessions] Intensity: 60-80% of age predicted maximum heart rate reserve Current METSs:: 4.5 maximum level Target Heart Rate:: 87-113 Current RPE:: 14 Maximum Excercise HR:: 87 Resting Blood Pressure: 146/40 Maximum Exercise Blood Pressure: 146/40 EKG Type: NSR to sinus tach without ectopy. Current Physical Activity or Exercising minutes: 42:56 - Outcomes & Goals Goals:: Verbalizes understanding of THR, RPE & goal METS by session 6, Documents in home exercise log/reports 30 min aerobic 5 day/wk by DC, Demonstrates accurate pulse taking by DC - Intervention & Plan Exercise Program Goals: Instruct on personal THR & RPE, Instruct on MET level & personal MET goal, Show patient to take own pulse /validate performance until accurate, Instruct on home exercise - 30-day Reassessments 30 day Reassessments:: Progressing - Physical Activity Home Exercise Physical Activity - Home Exercise: Safe Exercise, Warm-up, Self-monitoring, Cool-Down, Home Exercise > 30 min Daily, Sitting Time <3 hours/daily - Outcomes & Goals Outcomes/Goals: Demonstrates correct Warm-up/exercise Cool-Down (S3) if = 2.5 METs, Verbalizes symptoms of exercise intolerance by Session 3 (S3), Demonstrate safe equipment use (S3) & follows exercise prescrition (6) - Intervention & Plan Plan/Intervention: Instruct warm-up & cool-down if exercising at > 2 METs, Instruct on symptoms of exercise intolerance & actions to take, Instruct & monitor on saf, Assess intial functional capacity & safety risk - 30-day Reassessments 30 day Reassessments:: Progressing Nutrition - Initial Assessment Nutrition - 30-Day Assessment Nutrition - 60-Day Assessment Nutrition - 90-Day Assessment - Program Goals Nutrition Program Goals: LDL <100 optimal. 100 - 129 Near optimal. 130 - 159 Borderline High. 160 - 189 High. Total Cholesterol <200 desirable. 200 - 239 Borderline High. >/= 240 High. HDL < 40 Low >/=60 High. Triglycerides <150 desirable. <199 optimal. VlDL 5 - 40. HgbA1C <7%. BMI <25 Patient has diagnosis of Hyperlipidemia (ICD E78)?: Yes - Visit Date of Assessment:: 12/02/21 Session #:: 30 - Cholesterol/Lipids Determine presence & major risk factors that modify LDL goal: Hypertension or hypertensive medication, Family history of premature CHD in Male < 55 years: female <65 yearsFa, Age men > 45 years; women >/= 55 years Outcomes/Goals: Pt IDs own risk factors & lifestyle modifications by Session 10, Verbalizes symptoms of angina & response by session 3., Pt independently manages Intervention/Plan: Instruct on personal lipid levels & lipid goals/NCEP guidelines, Instruct on cholesterol 30-day Reassessments:: Progressing - Weight Mgt (Other Care) Not Applicable: No Height: 4 ft 10 in Weight:: 187 lb 8 oz BMI: 39.2 Diagnosis Overweight/Obesity BMI> 30% ICD-10 E66: Yes Diagnosis High BMI/Morbid Obesity BMI> 35% ICD-10 Z68: Yes Outcomes/Goals: Pt sets, maintains & shows weight loss goal & trend during rehab Intervention/Plan: Instruct on ideal BMI & set weight loss goal w/patient, Assist pt to ID & incorporate diet changes for weight loss by S9, Encourage goal of using 250-300dcal per session for weight loss 30 day Reassessments:: Not Met - Healthy Eating Habits Will attend diet classes:: Yes Outcomes/Goals:: Consume diet rich in vegs,fruits,whole grain/high fiber,fish,lean meat, Limit sat/trans fats,cholesterol & added salts & sugars Intervention/Plan:: Assess current eating habits 30-day Reassessments:: Progressing Nutrition - Final Assessment Medical - Initial Assessment Medical- 30-Day Assessment Medical- 60-Day Assessment Medical- 90-Day Assessment - Visit Date of Eval: 12/02/21 Session #:: 30 - Medication Compliance Preventative Medication(s):: Aspirin, Clopidogrel/P2Y12 inhibit, Statin/lipid, Beta danielle H/O mental health issues: depression, anxiety, or addiction?: No Doesn?t believe in the benefits of treatment?: No Believes medications are unnecessary or harmful?: No Has a concern about medication side effects?: No Expresses concern over the cost of medications?: No Outcomes/Goals: Verbalizes medications,desired effect & common side effects @ DC, Pt self-reports following medication regimen, Keeps card in wallet w/medications listed by DC Interventions/plans: Instruct on medication effects & side effects, Review medication list w/patient every two weeks, Instruct importance of taking meds as ordered & assist problem solving 30-day Reassessments:: Progressing - Tobacco Use Tobacco Use: Non-smoker - Hypertension Resting Blood Pressure:: 146/40 [place] [employer] Hypertension Guidelines: [place] [employer] Hypertension Guidelines. Normal BP Less than 120/80. Elevated BP 120/80. Hypertension Stage 1: BP 130-139/80-89. Hypertesnion Stage 2: BP 140 or higher/90 or higher. Hypertension Crisis: BP higher than 180/120 Peak Exercise Blood Pressure:: 160/54 Outcomes/Goals: Able to verbalize/achieve optimal blood pressure <130/80, Incorporates diet changes & exercise for blood pressure control by DC Interventions/plan: Instruct on optimal blood pressure, hypertension & medications, Instruct on effects of sodium, alcohol, stress, exercise &hypertension 30 day Reassessments:: Progressing - Tobacco Cessation Referral Smoking Cessation Referral:: No Individual Education/Counseling:: No Education Schedule Given:: Yes Medical - Final Assessment Psychosocial - Initial Assess Psychosocial - 30-Day Assess Psychosocial - 60-Day Assess Psychosocial - 90-Day Assess - VIsit Date of Eval: 12/02/21 Session #:: 30 Not Applicable: Yes History of previous Mental disease:: No - Psychosocial Test Tool Used:: PHQ-9 Questionnaire phq-9 Severity: Severity. 1-4 Minimal Depression. 5-9 Mild Depression. 10-14 Moderate Depression. 15-19 Moderately Sever Depression. 20-27 Severe Depression. Rule: - Referral to Behavioral Health PS - Interventions: Yes Attend Stress Management Classes, No Referral to Behavioral Health if PHQ-9 score >9:, No Referral to [facility], No Referral to Physician if PHQ-9 if score is 5-9: - Outcomes/Goals: See list Psychosocial Outcomes/Goals:: ID's personal stressors & 2 strategies to manage stress by discharge - Intervention/Plan: See List Interventions/Plan:: Assess stressors,coping strategies & signs of derpression on admission, Instruct/assist pt to develop coping & personal stress Mgt strategies, Instruct patient to recognize signs & symptoms of depression, Instruct patient to recog - 30-day Reassessments: 30 day Reassessments:: Progressing Psychosocial - Final Assessmen Patient Health Questionnaire 90-Day Re-eval Assessment 1. Little interest or pleasure in doing things: Several days 2. Feeling down, depressed, or hopeless: Several days 3. Trouble falling or staying asleep, or sleeping too much: Not at all 4. Feeling tired or having little energy: More than half the days 5. Poor appetite or overeating: Not at all 6. Feeling bad about yourself -- or that you are a failure or have let yourself or your family down: Not at all 7. Trouble concentrating on things, such as reading the newspaper or watching television: Not at all 8. Moving or speaking so slowly that other people could have noticed. Or the opposite - being so fidgety or restless that you have been moving around a lot more than usual: More than half the days 9. Thoughts that you would be better off , or of hurting yourself in some way: Not at all How difficult have these problems made it for you to do your work, take care of things at home, or get along with other people?: Somewhat difficult Total Score: 6 Self-Efficacy 90-Day Re-eval Assessment We would like to know how confident you are in doing certain activities. Please select your confidence level for:: Select your confidence level for the following using the scale 1-10 where 1 is not at all confident and 10 is totally confident. Your score is the average of all 6 responses. Fatigue: How confident are you that you can keep the fatigue caused by your disease from interfering with the things you want to do? Select Number: 5 Physical Discomfort or Pain: How confident are you that you can keep the physical discomfort or pain of your disease from interfering with the things you want to do? Select Number: 5 Emotional Distress: How confident are you that you can keep the emotional distress caused by your disease from interfering with the things you want to do? Select Number: 5 Other Symptoms or Health Problems: How confident are you that you can keep other symptoms or health problems from interfering with the things you want to do? Select Number: 5 Different Tasks and Activities: How confident are you that you can do the different tasks and activities needed to manage your health condition so as to reduce your need to see a doctor? Select Number: 5 Medication: How confident are you that you can do things other than just taking medication to reduce how much your illness affects your everyday life? Select Number: 5 Total Score:: 5 Nutrition Survey
[2021-12-02 08:29] VITALS: BP 146/40; BP 160/54; BMI 39.2
== END 2021-12-01 23:59 ==
LOC: CR 13:00
PROVIDERS: PCP Family Medicine; Referring Provider Internal Medicine Cardiovascular Disease; Visit Provider Internal Medicine Cardiovascular Disease
DX: I35.0 Nonrheumatic aortic (valve) stenosis (principal); Z95.2 Presence of prosthetic heart valve
CPT/HCPCS: 93798

== ENCOUNTER 2021-12-16 13:00 | Outpatient (RCR) | payer MEDICARE, SELFPAY ==
[2021-11-04 11:46] VITALS: BMI 39.2
[2021-12-02 00:37] VITALS: BP 140/58; BP 152/44
== END 2022-01-01 23:59 ==
LOC: CR 13:00
PROVIDERS: PCP Family Medicine; Referring Provider Internal Medicine Cardiovascular Disease; Visit Provider Internal Medicine Cardiovascular Disease
DX: I35.0 Nonrheumatic aortic (valve) stenosis (principal); Z95.2 Presence of prosthetic heart valve
CPT/HCPCS: 93798

== ENCOUNTER → 2022-02-22 | Outpatient (CLI) | payer MEDICARE, SELFPAY ==
[2021-12-02 08:29] VITALS: BMI 39.2
[2022-02-22 15:32] LABS: Absolute Lymphocyte Count 2.53 X10^3/uL (0.83-4.51); Basophil# 0.05 X10^3/uL; Basophil% 0.8 % (0-1); Eosinophil# 0.08 X10^3/uL; Eosinophils% 1.2 % (0-5); Hematocrit 37.3 % (37-47); Lymphocyte # 2.53 X10^3/ul (0.83-4.51); Lymphocyte % 38.9 % (19-41); Mean Corp Hgb Conc 32.2 g/dL (32-36); Mean Corpuscular Hgb 29.9 pg (27.0-32.0); Mean Platelet Vol. 10.8 fl (6.2-12.0); Monocyte# 0.84 X10^3/uL; Monocyte% 12.9 % (0-10); NRBC Flagged by Analyzer 0 % (0-5); Neutrophil # 2.98 X10^3/uL (2.7-7.7); Neutrophil % 45.9 % (47-70); Platelet Count 208 K/mm3 (150-450); Red Blood Count 4.01 M/mm3 (4.2-5.4); White Blood Count 6.5 K/mm3 (4.4-11.0)
[2022-02-22 15:44] LABS: Anion Gap 8 (5-15); BUN 45 mg/dL (7-18); Calcium,Total 10.6 mg/dL (8.5-10.1); Chloride 104 mmol/L (98-107); Creatinine, Serum 1.45 mg/dL (0.55-1.02); EST Glomerular Filtration Rate 36 mL/min (>60); Est Glom Filt Rate - Afr Amer 44 mL/min (>60); Glucose 187 mg/dL (74-106); Magnesium 2.3 mg/dL (1.6-2.6); Potassium 3.9 mmol/L (3.5-5.1); Sodium Level 138 mmol/L (136-145)
== END | disposition home or self-care (01) ==
LOC: LAB 14:23
PROVIDERS: PCP Family Medicine; Referring Provider Nurse Practitioner Family; Visit Provider Nurse Practitioner Family
DX: I35.0 Nonrheumatic aortic (valve) stenosis (principal); I77.9 Disorder of arteries and arterioles, unspecified; I10 Essential (primary) hypertension; R00.1 Bradycardia, unspecified
CPT/HCPCS: 36415; 80048; 83735; 85025

== ENCOUNTER → 2022-03-22 | Outpatient (CLI) | payer MEDICARE, SELFPAY ==
[2021-12-02 08:29] VITALS: BMI 39.2
--- NOTE | 2022-03-22 12:49 | CDU_ITS ---
Reason For Study: Dizziness Rt. Velocities/BP Lt. Velocities/BP Prox CCA 46/11 cm/sec. Prox CCA 61/9 cm/sec. Mid CCA 53/10 cm/sec. Mid CCA 62/10 cm/sec. Dist CCA 47/10 cm/sec. Dist CCA 52/10 cm/sec. Prox ICA 66/14 cm/sec. Prox ICA 108/17 cm/sec. Mid ICA 86/20 cm/sec. Mid ICA 95/14 cm/sec. Dist ICA 69/16 cm/sec. Dist ICA 52/10 cm/sec. Rt. ICA/CCA = 1.6. Lt. ICA/CCA = 1.7. Prox ECA 68/5 cm/sec. Prox ECA 116/8 cm/sec. Rt. Vert. 10 cm/sec. Lt. Vert. 42/8 cm/sec. Right Extracranial There is heterogeneous, irregular atherosclerotic plaque noted in the right common carotid artery. There is heterogeneous, irregular atherosclerotic plaque noted in the right internal carotid artery. There is heterogeneous, irregular atherosclerotic plaque noted in the right external carotid artery. Rt Vertebral A has bidirectional flow. Left Extracranial There is heterogeneous, irregular atherosclerotic plaque noted in the left common carotid artery. There is heterogeneous, irregular atherosclerotic plaque noted in the left internal carotid artery. There is heterogeneous, irregular atherosclerotic plaque noted in the left external carotid artery. Antegrade flow is noted in the left vertebral artery. Procedure Carotid Duplex [id number]. This is a Carotid Duplex examination using B-mode, color flow and specral Doppler. Exam performed in department. VL/Carotid Duplex Ultrasound Interpretation Summary Mild (<50%) stenosis right extracranial internal carotid. Mild (<50%) stenosis left extracranial internal carotid. The Right vertebral artery demonstrates bidirectional flow indicating more prox imal stenosis The Left vertebral is patent and antegrade. Ordering Physician: Dell Asher Referring Physician: [place] Performed By: Sylvie Asher, GILDARDOCS, RVT
== END | disposition home or self-care (01) ==
LOC: CVS 12:48
PROVIDERS: PCP Family Medicine; Referring Provider Nurse Practitioner Family; Visit Provider Nurse Practitioner Family
DX: I65.23 Occlusion and stenosis of bilateral carotid arteries (principal); I77.9 Disorder of arteries and arterioles, unspecified; R42 Dizziness and giddiness
CPT/HCPCS: 93880

== ENCOUNTER → 2022-03-31 | Outpatient (CLI) | payer MEDICARE, SELFPAY ==
[2021-12-02 08:29] VITALS: BMI 39.2
== END | disposition home or self-care (01) ==
LOC: PSN 11:54
PROVIDERS: PCP Family Medicine; Referring Provider Nurse Practitioner Family; Visit Provider Nurse Practitioner Family
DX: R00.1 Bradycardia, unspecified (principal)
CPT/HCPCS: 93225; 93226

== ENCOUNTER → 2022-05-24 | Outpatient (CLI) | payer MEDICARE, SELFPAY ==
[2021-12-02 08:29] VITALS: BMI 39.2
--- NOTE | 2022-05-24 10:45 | ECHOD_ITS ---
Reason For Study: DYSPNEA Procedure This was a 2D Doppler, Color Flow transthoracic echocardiogram. The study was technically difficult. Contrast injection was performed. Exam performed in department. Left Ventricle Left ventricular systolic function is normal. The estimated ejection fraction is 70 %. No evidence for diastolic dysfunction. No regional wall motion abnormalities noted. Right Ventricle Normal RV size. Normal systolic function. Atria The left atrium is mildly enlarged. Normal right atrium. No doppler evidence for ASD. Mitral Valve There is no mitral annular calcification. Normal mitral valve. Trivial mitral valve insufficiency. Tricuspid Valve Normal tricuspid valve. Trivial tricuspid valve insufficiency. Aortic Valve Based upon the 2D echocardiographic images obtained and spectral Doppler information obtained there appears to be a stable bioprosthetic aortic valve apparatus. Pulmonic Valve The pulmonic valve is not well visualized. Great Vessels The aortic root is not well visualized. Pericardium/Pleural No pericardial effusion. Medication 22 gauge I.V. with prn adaptor inserted into left arm. Diluted definity 2ml given slow IV push to enhance endocardial definition. MMode/2D Measurements & Calculations LVIDd: 4.7 cm IVSd: 1.1 cm LVOT diam: 2.0 cm LVIDs: 2.9 cm LVPWd: 0.88 cm FS: 39.3 % LVOT area: 3.2 cm2 LAV(MOD-bp): 46.4 ml LA A4 area: 17.0 cm2 LAV(MOD-bp) Indexed: 26.5 ml/m2 LAV(MOD-sp2): 46.7 ml LAV(MOD-sp4): 42.3 ml Time Measurements MV dec time: 0.28 sec Doppler Measurements & Calculations MV E max jensen: 73.7 cm/sec Lat Peak E' Jensen: 8.2 cm/sec Med Peak E' Jensen: 9.7 cm/sec MV A max jensen: 80.5 cm/sec E/E' lat: 8.9 E/E' med: 7.6 MV E/A: 0.92 MV V2 max: 86.9 cm/sec MV dec slope: 263.6 cm/sec2 Ao V2 max: 272.3 cm/sec MV max P.0 mmHg Ao max P.7 mmHg MV V2 mean: 42.9 cm/sec Ao V2 mean: 169.7 cm/sec MV mean P.91 mmHg Ao mean P.1 mmHg MV V2 VTI: 28.9 cm Ao V2 VTI: 51.7 cm MVA(VTI): 3.7 cm2 AV (velocity ratio): 0.64 HERBERT(I,D): 2.1 cm2 HERBERT(V,D): 1.6 cm2 LV V1 max: 137.0 cm/sec SV(LVOT): 106.5 ml LV V1 max P.5 mmHg LV V1 mean P.0 mmHg LV V1 mean: 91.1 cm/sec LV V1 VTI: 32.9 cm ECHO/Echo Complete W/ Contrast Interpretation Summary The study was technically difficult. Contrast injection was performed. Left ventricular systolic function is normal. The estimated ejection fraction is 70 %. The left atrium is mildly enlarged. Trivial mitral valve insufficiency. Trivial tricuspid valve insufficiency. Based upon the 2D echocardiographic images obtained and spectral Doppler inform ation obtained there appears to be a stable bioprosthetic aortic valve apparatus. No evidence for diastolic dysfunction. Ordering Physician: Dell Asher Referring Physician: Dell Asher Performed By: Marie Landers RCS
== END | disposition home or self-care (01) ==
LOC: CVS 10:43
PROVIDERS: PCP Family Medicine; Referring Provider Nurse Practitioner Family; Visit Provider Nurse Practitioner Family
DX: R06.02 Shortness of breath (principal); R01.1 Cardiac murmur, unspecified
CPT/HCPCS: 93306; Q9957; A4216; C8929

== ENCOUNTER 2022-07-19 06:33 | Day surgery (SDC) | payer MEDICARE, SELFPAY ==
[2021-12-02 08:29] VITALS: BMI 39.2
[2022-07-11 14:43] LABS: Absolute Lymphocyte Count 1.97 X10^3/uL (0.83-4.51); Absolute Neutrophil Count 4.4 X10^3/uL (2.0-7.7); Basophil# 0.05 X10^3/uL; Basophil% 0.7 % (0-1); Eosinophil# 0.06 X10^3/uL; Eosinophils% 0.8 % (0-5); Hematocrit 35.5 % (37-47); Hemoglobin 11.4 g/dL (12.0-15.0); Lymphocyte # 1.97 X10^3/ul (0.83-4.51); Lymphocyte % 27.7 % (19-41); Mean Corp Hgb Conc 32.1 g/dL (32-36); Mean Corpuscular Hgb 30.2 pg (27.0-32.0); Mean Corpuscular Volume 94.2 fL (81-99); Mean Platelet Vol. 10.3 fl (6.2-12.0); Monocyte# 0.58 X10^3/uL; Monocyte% 8.2 % (0-10); NRBC Flagged by Analyzer 0 % (0-5); Neutrophil # 4.43 X10^3/uL (2.7-7.7); Neutrophil % 62.3 % (47-70); Platelet Count 206 K/mm3 (150-450); RBC Distribution Width CV 13.6 % (11.6-14.6); RBC Distribution Width SD 46.5 fl (35.1-43.9); Red Blood Count 3.77 M/mm3 (4.2-5.4); White Blood Count 7.1 K/mm3 (4.4-11.0)
[2022-07-11 15:05] LABS: Anion Gap 9 (5-15); BUN 40 mg/dL (7-18); BUN/Creat Ratio 31.2 RATIO (10-20); Calcium,Total 10.7 mg/dL (8.5-10.1); Chloride 105 mmol/L (98-107); Creatinine, Serum 1.28 mg/dL (0.55-1.02); EST Glomerular Filtration Rate 42 mL/min (>60); Est Glom Filt Rate - Afr Amer 51 mL/min (>60); Glucose 134 mg/dL (74-106); Potassium 3.9 mmol/L (3.5-5.1); Sodium Level 137 mmol/L (136-145)
--- NOTE | 2022-07-19 07:45 | HP.PCM_ITS ---
HPI - General HPI Narrative LASHAE HARRIS, is a 86 F who presents with concern for vertebrobasilar insufficiency. She has had persistent episodes of lightheadedness not necessarily related to right arm activity. She has been seen by an ENT, had Eply maneuvers with no improvement or alternative explanation. Carotid duplex revealed by directional flow in right vertebral artery and she has blood pressure discrepancy. Prior CTA for TAVR planning did not adequately visualize the innominate or subclavian artery due to artifact from contrast injection within the ipsilateral vein. [facility] Medical History Bronchiectasis without acute exacerbation Bronchitis Carotid artery disease CHF (congestive heart failure) Diabetes Essential hypertension Infection and inflammatory reaction due to other internal prosthetic devices, implants and grafts, initial encounter MRSE infected deep tissue (seroma) post op wound Nonrheumatic aortic (valve) stenosis Obesities, morbid Osteoarthritis Secondary pulmonary hypertension Sleep apnea with use of continuous positive airway pressure (CPAP) Spondylisthesis Home Medications eplerenone 25 mg tablet 25 mg PO BID 07/06/15 [History Last Taken 08/17/15] aspirin 81 mg tablet,delayed release (Adult Aspirin Regimen) 81 mg PO DAILY 11/04/19 [History Last Taken 07/19/22] metformin 500 mg tablet 500 mg PO BID 03/03/20 [History Last Taken 07/16/22] albuterol sulfate 90 mcg/actuation aerosol inhaler (Ventolin HFA) 2 puff inhalation Q4H PRN shortness of breath or wheezing #18 grams 06/15/20 [Rx Last Taken Unknown] acetaminophen 500 mg capsule 1,000 mg PO BID 02/03/21 [History Last Taken Unknown] fluticasone propionate 50 mcg/actuation nasal spray,suspension (Allergy Relief (fluticasone)) 1 spray intranasal BID PRN Allergy Symptoms 05/16/21 [History Last Taken Unknown] gabapentin 600 mg tablet 600 mg PO QHS 08/08/21 [History Last Taken Unknown] melatonin 10 mg capsule 10 mg PO HS PRN Sleep 08/08/21 [History Last Taken Unknown] simethicone 80 mg chewable tablet (Gas Relief (simethicone)) 80 mg PO QHS PRN Gastrointestinal Spasms Or Cramping 08/08/21 [History Last Taken Unknown] hydralazine 100 mg tablet 100 mg PO TID This is a dose increase #270 tabs 10/18/21 [Rx Last Taken 07/19/22] zinc 50 mg tablet 50 mg PO DAILY 11/09/21 [History Last Taken Unknown] Lactobacillus acidophilus 100 mg (1 billion cell) capsule 200 mg PO DAILY 02/22/22 [History Last Taken Unknown] biotin 5,000 mcg disintegrating tablet 10,000 mcg PO DAILY 02/22/22 [History Last Taken Unknown] carboxymethylcellulose sodium 0.5 % eye drops in a dropperette (Refresh Plus) 1 drp ophthalmic (eye) BID PRN Dry Eyes 02/22/22 [History Last Taken Unknown] cholecalciferol (vitamin D3) 250 mcg (10,000 unit) capsule 250 mcg PO DAILY 02/22/22 [History Last Taken Unknown] diphenhydramine 25 mg-acetaminophen 500 mg tablet (Acetaminophen PM) 2 tab PO QPM 02/22/22 [History Last Taken Unknown] loratadine 10 mg tablet 5 mg PO BID 02/22/22 [History Last Taken Unknown] magnesium oxide 500 mg tablet 500 mg PO DAILY 02/22/22 [History Last Taken Unknown] mecobalamin (vitamin B12) 1,000 mcg disintegrating tablet,sublingual 5,000 mcg sublingual DAILY 02/22/22 [History Last Taken Unknown] psyllium husk 0.4 gram capsule (Fiber (psyllium husk)) 0.8 g PO DAILY 02/22/22 [History Last Taken Unknown] triamcinolone acetonide 0.1 % topical cream 1 applic topical DAILY PRN Dry Skin 02/22/22 [History Last Taken Unknown] furosemide 40 mg tablet 40 mg PO DAILY #90 tabs 02/23/22 [Rx Last Taken Unknown] famotidine 20 mg tablet 10 mg PO DAILY PRN Heartburn 03/30/22 [History Last Taken Unknown] losartan 50 mg tablet 50 mg PO BID #180 tabs 06/09/22 [Rx Last Taken 07/19/22] amlodipine 5 mg tablet 5 mg PO DAILY #90 tabs 06/30/22 [Rx Last Taken Unknown] clonidine HCl 0.1 mg tablet 0.1 mg PO QHS #90 tabs 06/30/22 [Rx Last Taken Unknown] atorvastatin 40 mg tablet 40 mg PO DAILY #30 tabs 07/13/22 [Rx Last Taken Unknown] Allergy/AdvReac Type Severity Reaction Status Date / Time codeine Allergy Unknown Verified 06/13/22 11:58 egg Allergy Food Verified 06/13/22 11:58 Allergy nitrofurantoin Allergy Unknown Verified 06/13/22 11:58 macrocrystalline [From Macrodantin] Sulfa (Sulfonamide Allergy Rash Verified 06/13/22 11:58 Antibiotics) Tetracyclines Allergy Anaphylaxis Verified 06/13/22 11:58 lactose AdvReac Mild Food Verified 06/13/22 11:58 Allergy Penicillins AdvReac Other Verified 06/13/22 11:58 Family History Mother Heart disease Hypertension Father Hypertension Brother Heart disease Sister Hypertension Brother Heart disease Surgical History Emergency surgery for infection in incision H/O tubal ligation H/O: hysterectomy History of appendectomy History of bilateral cataract extraction History of carpal tunnel release History of right and left heart catheterization (12/31/19) History of tonsillectomy History of total hip replacement History of total left hip replacement History of total left knee replacement History of total right knee replacement History of transcatheter aortic valve replacement (TAVR) (~07/28/21) History of transesophageal echocardiography (CONRAD) (12/31/19) History of YAG laser capsulotomy of lens of right eye HX of fixation of lumbar spine with rods Rectal Repair S/P arthroscopic surgery of right knee S/P excision of Corona's neuroma S/P laminectomy with spinal fusion S/P removal of left ovary Spinal lumbar surgery Social History Smoking Status: Never smoker second hand exposure: No alcohol intake: never substance use type: does not use caffeine: Yes what type of physical activity do you participate in: none ROS Constitutional Constitutional: Denies chills, fever(s), frequent falls, lethargy or weakness Eyes Eyes: Denies blind spots, change in vision or loss of vision ENT HEENT: Reports dizziness; Denies bleeding gums, hoarseness or sore throat Cardiovascular Cardiovascular: Denies abdominal pain, bluish discoloration of hand/feet, chest pain with activity, claudication, cold extremities, cyanosis, dyspnea on exertion, erythema on extremities, irregular heart rhythm, leg edema, leg ulcers, numbness in extremities or weakness in extremities Respiratory/Chest Respiratory/Chest: Denies cough, excessive phlegm production, shortness of breath at rest, shortness of breath with exertion or wheezing Gastrointestinal Gastrointestinal: Denies anorexia, change in stool character, constipation, diarrhea, melena or rectal bleeding Genitourinary Genitourinary: Denies dysuria or hematuria Musculoskeletal Musculoskeletal: Denies abnormal gait Integumentary Integumentary: Reports other Details: ; Denies erythema, non-healing lesions or wounds Neurologic Neurologic: Denies abnormal speech, focal weakness, headache(s), loss of vision, numbness, paresthesias or sensory deficit Hematologic/Lymphatic Hematologic/Lymphatic: Denies easy bleeding, easy bruising or lymphadenopathy Vital Signs Vital Signs Vital Signs: Weight Weight: 187 lb Physical Exam Const alert, oriented x3, no apparent distress and healthy appearing General Appearance: cooperative; Negative for combative or lethargic Orientation / Consciousness: awake Exam Limitations: no limitations HEENT Head and Scalp: normocephalic and atraumatic Eyes EOMs intact bilaterally General Eye: normal appearance of both eyes Neck full ROM, no lymphadenopathy, thyroid normal and No no carotid bruits General: trachea midline; Negative for lymphadenopathy or tenderness Thyroid: thyroid normal Lymph Lymphatic: Negative for no lymphadenopathy noted Resp normal respiratory effort and no use of accessory muscles Effort and Inspection: Negative for labored, stridor or audible wheezes Cardio regular rate and regular rhythm Back/Spine Cervical Spine: cervical ROM normal Extremity full ROM, normal capillary refill and no clubbing, cyanosis or edema Skin no rashes or lesions noted and no wounds Neuro oriented x3, CN's II-XII intact bilaterally, no focal motor deficits and no sensory deficits noted Psych thought process normal, cooperative, affect normal, speech normal and activity/motor behavior normal Results Lab / Micro Data Result Diagrams: 07/11/22 13:26 07/11/22 13:26 Assessment & Plan Assessment/Plan (1) Arterial steal syndrome: PLAN: -plan angio, possible stent if lesion present and not densely calcified and arch not prohibitive -if calcified/difficult arch would return to treat via neck incision and retrograde access
--- NOTE | 2022-07-19 09:56 | OP.PCM_ITS ---
Report of Operation Date of Procedure: 07/19/22 Pre-Operative Diagnosis: arterial steal, right upper extremity Post-Operative Diagnosis: no significant stenosis of innominate/right subclavian arteries, normal flow pattern in right vertebral artery Surgery/Procedure Performed:: aortogram, right upper extremity angiogram IVUS innominate artery, right subclavian, right axillary artery Description of Surgical Findings:: no significant stenosis in innominate artery or right subclavian/axillary arteries Surgeon: [place] Type of Anesthesia: Local and Sedation,Conscious Estimated Blood Loss (mL): 5 Description of Procedure: HPI: Patient is an 86-year-old female with symptoms of positional dizziness who was found to have bidirectional flow in the right vertebral artery. She had a previous CT scan that was nondiagnostic due to contrast bolus within the vein causing artifact on imaging done for transcatheter valve planning. She also has pretty significant chronic kidney disease so repeat CT angiography was felt to be risk prohibitive. She presents now for angiogram with plans for intravascular ultrasound and possible intervention. Description of procedure: Upon obtaining informed consent and verification correct patient procedure site the patient was taken the [facility] where she was positioned prepped and draped in usual sterile fashion. Time was then performed conscious sedation administered with Versed and fentanyl. Skin over the right common femoral artery was anesthetized 1% lidocaine and access obtained under ultrasound guidance with a micropuncture needle wire. This was then exchanged for micropuncture sheath through which a Bentson wire was advanced and the micropuncture sheath exchanged for a 5 Welsh sheath. Through the 5 Welsh sheath a pigtail catheter Bentson wire advanced ultimately into the ascending aorta. Digital subtraction arch aortogram was performed which did not show any significant ostial stenosis of the innominate artery. There was a significant amount of tortuosity within the vessels and overlying artifact from the carotid and subclavian which limited more distal visualization. Patient was in heparinized and the innominate artery was selectively cannulated with a H1 catheter and the Bentson wire. Once the catheter was advanced into the mid innominate artery digital traction selective angiography was performed of the innominate and its bifurcation vessels and multiple oblique views. This again failed to reveal any significant stenosis, however there was calcified stenosis at the ostia of the subclavian. Given the type III arch we are unable to successfully advance her catheter wire into the subclavian so radial access was obtained on the right after which Bentson wire and KMP catheter were advanced traversing the subclavian ultimately into the ascending aorta. This then exchanged out for an 014 Glidewire over which a intravascular sound probe was advanced. Recorded pullback of the innominate right subclavian right axillary artery was performed. This revealed calcific plaque but no significant stenosis at the origin of the subclavian, with otherwise large caliber vessel with no focal atherosclerosis or stenosis. Is felt that no intervention was required so the radial sheath was withdrawn and a radial band applied. Next a 5 minx was deployed in the right femoral access followed by 2 minutes of manual pressure. Patient was then taken to the recovery room anticipated discharged home. Radiograph interpretation: Normal caliber ascending aorta with calcified atherosclerosis but no significant stenosis. Innominate artery normal caliber with no significant atherosclerosis or stenosis. Right common carotid artery widely patent with no atherosclerosis or stenosis. Right subclavian axillary artery with mild but nonstenotic calcification at the origin.
== END 2022-07-19 13:00 | disposition home or self-care (01) ==
PROVIDERS: Physician Assistant; PCP Family Medicine; Referring Provider Surgery Trauma Surgery; Visit Provider Surgery Trauma Surgery
DX: E11.51 Type 2 diabetes mellitus with diabetic peripheral angiopathy without gangrene (principal); I11.0 Hypertensive heart disease with heart failure; I50.9 Heart failure, unspecified; I13.0 Hypertensive heart and chronic kidney disease with heart failure and stage 1 through stage 4 chronic kidney disease, or unspecified chronic kidney disease; E11.22 Type 2 diabetes mellitus with diabetic chronic kidney disease; I70.208 Unspecified atherosclerosis of native arteries of extremities, other extremity; N18.9 Chronic kidney disease, unspecified; Z79.82 Long term (current) use of aspirin; Z79.84 Long term (current) use of oral hypoglycemic drugs; Z79.899 Other long term (current) drug therapy
CPT/HCPCS: 36200; 36415; 37252; 37253; 75605; 76937; 80048; 85025; 99152; 99153; C1760; C1769; J7040; C1894; Q9967

== ENCOUNTER → 2023-01-09 | Outpatient (CLI) | payer MEDICARE, SELFPAY ==
[2021-12-02 08:29] VITALS: BMI 39.2
[2023-01-09 10:44] LABS: PTHIN 71.9 pg/mL (18.4-80.1)
[2023-01-09 10:46] LABS: ALB/GLOB Ratio 0.9 RATIO (0.9-2.4); AST(SGOT) 18 U/L (15-37); Alanine Aminotransfer ALT/SGPT 24 U/L (13-56); Albumin, Serum 3.6 g/dL (3.2-5.0); Alkaline Phosphatase 141 U/L (45-117); Bilirubin, Direct 0.11 mg/dL (0.00-0.30); Globulin 3.8 g/dL (2.2-4.2); Protein, Total 7.4 g/dL (6.4-8.2)
[2023-01-09 10:50] LABS: Vitamin D,25 Hydroxy 109.4 ng/mL
[2023-01-10 13:54] LABS: Anion Gap 11 (5-15); BUN 42 mg/dL (7-18); BUN/Creat Ratio 28.8 RATIO (10-20); Calcium,Total 10.9 mg/dL (8.5-10.1); Chloride 102 mmol/L (98-107); Creatinine, Serum 1.46 mg/dL (0.55-1.02); EST Glomerular Filtration Rate 36 mL/min (>60); Est Glom Filt Rate - Afr Amer 44 mL/min (>60); Glucose 208 mg/dL (74-106); Phosphorus 3.1 mg/dL (2.5-4.9); Potassium 4.2 mmol/L (3.5-5.1); Sodium Level 137 mmol/L (136-145)
== END | disposition home or self-care (01) ==
LOC: MTLAB 08:16
PROVIDERS: PCP Family Medicine; Referring Provider Family Medicine; Visit Provider Family Medicine
DX: N18.30 Chronic kidney disease, stage 3 unspecified (principal); E11.22 Type 2 diabetes mellitus with diabetic chronic kidney disease
CPT/HCPCS: 36415; 80048; 80076; 82306; 83970; 84100; 84156

== ENCOUNTER → 2023-01-31 | Outpatient (CLI) | payer MEDICARE, SELFPAY ==
[2021-12-02 08:29] VITALS: BMI 39.2
[2023-01-31 10:54] LABS: Anion Gap 6 (5-15); BUN 30 mg/dL (7-18); BUN/Creat Ratio 21.3 RATIO (10-20); Calcium,Total 10.4 mg/dL (8.5-10.1); Chloride 104 mmol/L (98-107); Creatinine, Serum 1.41 mg/dL (0.55-1.02); EST Glomerular Filtration Rate 37 mL/min (>60); Est Glom Filt Rate - Afr Amer 45 mL/min (>60); Glucose 295 mg/dL (74-106); Potassium 3.7 mmol/L (3.5-5.1); Sodium Level 138 mmol/L (136-145)
[2023-01-31 10:55] LABS: Vitamin D,25 Hydroxy 102.2 ng/mL
[2023-01-31 12:02] LABS: Hemoglobin A1c 7.4 % (3.8-5.6)
[2023-02-02 10:27] LABS: PTHIN 78.3 pg/mL (18.4-80.1)
== END | disposition home or self-care (01) ==
PROVIDERS: PCP Family Medicine; Referring Provider Family Medicine; Visit Provider Family Medicine
DX: E11.22 Type 2 diabetes mellitus with diabetic chronic kidney disease (principal); E55.9 Vitamin D deficiency, unspecified; N18.9 Chronic kidney disease, unspecified
CPT/HCPCS: 36415; 80048; 82306; 83036; 83970

== ENCOUNTER → 2023-05-07 | Outpatient (CLI) | payer MEDICARE, SELFPAY ==
[2021-12-02 08:29] VITALS: BMI 39.2
[2023-05-07 11:33] LABS: PTHIN 72.5 pg/mL (18.4-80.1)
== END | disposition home or self-care (01) ==
LOC: MFPLAB 09:50
PROVIDERS: PCP Family Medicine; Visit Provider Family Medicine
DX: E83.52 Hypercalcemia (principal)
CPT/HCPCS: 36415; 83970

== ENCOUNTER → 2023-05-10 | Outpatient (CLI) | payer MEDICARE, SELFPAY ==
[2021-12-02 08:29] VITALS: BMI 39.2
[2023-05-10 18:02] LABS: Hemoglobin A1c 6.6 % (3.8-5.6); Vitamin D,25 Hydroxy 83.2 ng/mL
== END | disposition home or self-care (01) ==
LOC: MFPLAB 14:57
PROVIDERS: PCP Family Medicine; Visit Provider Family Medicine
DX: E56.9 Vitamin deficiency, unspecified (principal); E11.22 Type 2 diabetes mellitus with diabetic chronic kidney disease; M81.0 Age-related osteoporosis without current pathological fracture; N18.2 Chronic kidney disease, stage 2 (mild)
CPT/HCPCS: 36415; 82306; 83036

== ENCOUNTER → 2023-07-12 | Outpatient (CLI) | payer MEDICARE, SELFPAY ==
[2021-12-02 08:29] VITALS: BMI 39.2
--- OUTSIDE RECORDS SUMMARY | 2023-07-12 14:15 | XMS RPT_ITS | CCD ---
Author Name Unknown Address [address] [place] [address] Organization [facility] Care Team Providers Care [employer] Worker Name Role Phone York, Eda L Unavailable Unavailable Becerra PLACEMENT MANAGER, Eda Etta Unavailable Unavaila ble York, Eda L Unavailable Unavailable Yensho PLACEMENT MANAGER, Sandi A Unavailable Unavailab le Yensho PLACEMENT MANAGER, Sandi A Unavailable Unavailab le Becerra PLACEMENT MANAGER, Eda Etta Unavailable Unavaila ble York, Eda L Unavailable Unavailable York, Eda L Unavailable Unavailable Juan ZAMORA, [place] Primary Care Provider Jose Parson Unavailable Allergies Allergy Classification Reported Allergen(s) Allergy Type Date of Onset Reaction(s) Facility (12 sources) codeine drug allergy 6 Unknown [facility] Work Phone: (16 sources) Egg; Translations: [EGGS] food allergy 6 asthma type cough, can tolerate in moderation, unknown [facility] Work Phone: (8 sources) glucose; Translations: [GLUCOSE] food allergy 6 sensitivity [facility] Work Phone: (20 sources) lactose; Translations: [LACTOSE] food allergy 6 Unknown [facility] Work Phone: (8 sources) nitrofurantoin drug allergy 6 Unknown [facility] Work Phone: (8 sources) penicillin v drug allergy 6 bleeding around the injection site [facility] Work Phone: (8 sources) Penicillins (Antibiotic) drug allergy 6 bruising [facility] Work Phone: [phone] (8 sources) sulfADIAZINE drug allergy 6 Rash [facility] Work Phone: [phone] (8 sources) Sulfonamides (Antibiotic) drug allergy 6 Rash [facility] Work Phone: [phone] (8 sources) tetracycline drug allergy 6 Rash, very sick feeling [facility] Work Phone: [phone] (8 sources) TETRAYCYCLINES drug allergy 6 Anaphylaxis [facility] Work Phone: [phone] (4 sources) egg yolk phospholipids Drug Allergy 2 Unknown [facility] (4 sources) Nitrofurantoin Drug Allergy 2 Unknown [facility] (4 sources) Penicillins Propensity to adverse reactions to drug 2 Unknown [facility] (4 sources) Sulfonamides (Antibiotic) Drug Allergy 2 Rash [facility] (4 sources) Tetracycline (class of antibiotic) Drug Allergy 2 Anaphylaxis [facility] Medications Current Medications Medication Drug Class(es) Dates Sig (Normalized) Sig (Original) iv contrast (will be provided with radiology test) (1 source) Start: 06-15-2021 End: 06-15-2021 inject 1 dose intravenously once iv contrast (will be provided with radiology test) Indications: Nonrheumatic aortic valve stenosis Inject 1 Each intravenously one time only for 1 dose. 1 Each 0 06/15/2021 06/15/2021 Active Completed/Discontinued Medications Medication Drug Class(es) Dates Sig (Normalized) Sig (Original) acetaminophen 500 mg oral capsule (20 sources) Start: 05-03-2016 End: 08-17-2016 take 2 tablets by mouth three times daily ACETAMINOPHEN 500 MG CAPS Two tablets by mouth three times daily ACETAMINOPHEN [id number] Eda Becerra PLACEMENT MANAGER Problems Active Problems Problem Classification Problem Date Documented Date Episodic/Chronic Chronic obstructive pulmonary disease and bronchiectasis (8 sources) Bronchiectasis; Translations: [Bronchiectasis, uncomplicated] Onset: 05-10-2016 05-10-2016 Chronic Diabetes mellitus without complication (8 sources) Type 2 diabetes mellitus well controlled; Translations: [Type 2 diabetes mellitus without complications] Onset: 08-30-2015 08-30-2015 Chronic Essential hypertension (5 sources) Hypertensive urgency ; Translations: [Essential hypertension] Onset: 03-14-2017 03-15-2017 Chronic Heart valve disorders (7 sources) Aortic stenosis, non-rheumatic ; Translations: [Nonrheumatic aortic (valve) stenosis] Onset: 07-28-2021 Chronic Other nutritional; endocrine; and metabolic disorders (8 sources) Morbid obesity; Translations: [Morbid (severe) obesity due to excess calories] Onset: 08-30-2015 08-30-2015 Chronic Other nutritional; endocrine; and metabolic disorders (2 sources) Obese class II; Translations: [Obesity, unspecified] Onset: 08-04-2021 08-04-2021 Chronic Other screening for suspected conditions (not mental disorders or infectious disease) (1 source) Azotemia; Translations: [Other specified abnormal findings of blood chemistry] Episodic Debbie-; endo-; and myocarditis; cardiomyopathy (except that caused by tuberculosis or sexually transmitted disease) (2 sources) Heart valve disorder; Translations: [Endocarditis, valve unspecified] Onset: 06-30-2021 06-30-2021 Chronic Pulmonary heart disease (8 sources) Pulmonary hypertension; Translations: [Other secondary pulmonary hypertension] Onset: 11-15-2016 11-15-2016 Chronic Residual codes; unclassified (8 sources) Obstructive sleep apnea of adult; Translations: [Obstructive sleep apnea (adult) (pediatric)] Onset: 05-10-2016 05-10-2016 Chronic Unclassified (5 sources) Fixation of fracture of spine using Baldwin blair; Translations: [Other specified postprocedural states] Onset: 08-30-2015 08-30-2015 Past or Other Problems Problem Classification Problem Date Documented Da te Episodic/Chronic Bacterial infection; unspecified site (8 sources) Infection due to enterococcus; Translations: [Enterococcus as the cause of diseases classified elsewhere] Onset: 08-30-2015 08-30-2015 Episodic Complication of device; implant or graft (8 sources) Infection and inflammatory reaction due to other internal prosthetic devices, implants and grafts, initial encounter; Translations: [Infection and inflammatory reaction due to other internal prosthetic devices, implants and grafts, initial encounter] Onset: 09-08-2015 09-09-2015 Episodic Heart valve disorders (8 sources) Heart murmur; Translations: [Cardiac murmur, unspecified] Onset: 08-17-2016 08-17-2016 Episodic Other gastrointestinal disorders (8 sources) Diarrhea; Translations: [Diarrhea, unspecified] Onset: 10-07-2015 10-07-2015 Episodic Other infections; including parasitic (8 sources) Local infection of wound; Translations: [Local infection of the skin and subcutaneous tissue, unspecified] Onset: 08-30-2015 08-30-2015 Episodic Other upper respiratory infections (8 sources) Acute sinusitis; Translations: [Acute sinusitis, unspecified] Onset: 09-22-2015 09-22-2015 Episodic Unclassified (3 sources) Other specified postprocedural states; Translations: [Other specified postprocedural states] Onset: 08-30-2015 08-30-2015 Episodic Results Test Name Value Interpretation Reference Range Facil ity Vital Signs Date Time Vital Sign Value Performing Clinician Facility 08-30-2021 15:31-0400 Diastolic blood pressure 68 mm[Hg] Sarina Kaiser APRN.CNP Work Phone: [facility] 08-30-2021 15:31-0400 Systolic blood pressure 146 mm[Hg] Sarina Kaiser APRN.CNP Work Phone: [facility] 08-30-2021 14:58-0400 Body weight 84.82 kg Sarina Kaiser APRN.CNP Work Phone: [facility] 08-30-2021 14:58-0400 Heart rate 63 /min Sarina Kaiser APRN.CNP Work Phone: [facility] 08-30-2021 14:58-0400 SaO2% (BldA) [Mass fraction] 99 % Sarina Kaiser APRN.CNP Work Phone: [facility] 06-15-2021 11:00-0500 Body height 149.9 cm Mike Rondon MD Work Phone: [facility] 06-15-2021 11:00-0500 Body weight 85.28 kg Mike Rondon MD Work Phone: [facility] 06-15-2021 11:00-0500 Diastolic blood pressure 72 mm[Hg] Mike Rondon MD Work Phone: [facility] 06-15-2021 11:00-0500 Heart rate 65 /min Mike Rondon MD Work Phone: [facility] 06-15-2021 11:00-0500 Respiratory rate 20 /min Mike Rondon MD Work Phone: [facility] 06-15-2021 11:00-0500 SaO2% (BldA) [Mass fraction] 98 % Mike Rondon MD Work Phone: [facility] 06-15-2021 11:00-0500 Systolic blood pressure 136 mm[Hg] Mike Rondon MD Work Phone: [facility] 03-14-2017 05:35-0400 BMI (Body Mass Index) 39.08 kg/m2 Sandi Jacobo LPN [facility] Work Phone: 03-14-2017 05:35-0400 Body Temperature 97.5 [degF] Sandi Yensho PLACEMENT MANAGER [facility] Work Phone: 03-14-2017 05:35-0400 BP Diastolic 80 mm[Hg] Sandi Lavonnsho PLACEMENT MANAGER [facility] Work Phone: 03-14-2017 05:35-0400 BP Systolic 210 mm[Hg] Sandi Yensho PLACEMENT MANAGER [facility] Work Phone: 03-14-2017 05:35-0400 Height 147.32 cm Sandi Lavonnsho PLACEMENT MANAGER [facility] Work Phone: 03-14-2017 05:35-0400 Pulse (Heart Rate) 62 /min Sandi Zenaidaho PLACEMENT MANAGER [facility] Work Phone: 03-14-2017 05:35-0400 Respiratory Rate 18 /min Sandi Jacobo LPN [facility] Work Phone: 03-14-2017 05:35-0400 Weight 84.82 kg Sandi Zenaidaho PLACEMENT MANAGER [facility] Work Phone: 12-14-2016 13:06-0400 BMI (Body Mass Index) 40.33 kg/m2 Eda Black [facility] Work Phone: 12-14-2016 13:06-0400 Body Temperature 99 [degF] Eda Black [facility] Work Phone: 12-14-2016 13:06-0400 BP Diastolic 78 mm[Hg] Eda Black [facility] Work Phone: 12-14-2016 13:06-0400 BP Systolic 140 mm[Hg] Eda Black [facility] Work Phone: 12-14-2016 13:06-0400 Height 147.32 cm Edatim Black [facility] Work Phone: 12-14-2016 13:06-0400 Pulse (Heart Rate) 66 /min Eda Black [facility] Work Phone: 12-14-2016 13:06-0400 Respiratory Rate 18 /min Eda Black [facility] Work Phone: 12-14-2016 13:06-0400 Weight 87.54 kg Eda Black [facility] Work Phone: 11-15-2016 12:42-0400 BMI (Body Mass Index) 40.54 kg/m2 Eda Becerra LPN [facility] Work Phone: 11-15-2016 12:42-0400 Body Temperature 98.8 [degF] Eda Becerra LPN [facility] Work Phone: 11-15-2016 12:42-0400 BP Diastolic 80 mm[Hg] Eda Becerra PLACEMENT MANAGER [facility] Work Phone: 11-15-2016 12:42-0400 BP Systolic 160 mm[Hg] Eda Becerra PLACEMENT MANAGER [facility] Work Phone: 11-15-2016 12:42-0400 Height 147.32 cm Eda Becerra PLACEMENT MANAGER [facility] Work Phone: 11-15-2016 12:42-0400 Pulse (Heart Rate) 56 /min Eda Becerra PLACEMENT MANAGER [facility] Work Phone: 11-15-2016 12:42-0400 Pulse Oximetry 99 % Eda Becerra PLACEMENT MANAGER [facility] Work Phone: 11-15-2016 12:42-0400 Respiratory Rate 18 /min Eda Becerra PLACEMENT MANAGER [facility] Work Phone: 11-15-2016 12:42-0400 Weight 88 kg Eda Becerra PLACEMENT MANAGER [facility] Work Phone: 08-17-2016 13:31-0400 BMI (Body Mass Index) 40.54 kg/m2 Eda Becerra PLACEMENT MANAGER [facility] Work Phone: 08-17-2016 13:31-0400 Body Temperature 98.2 [degF] Eda Becerra PLACEMENT MANAGER [facility] Work Phone: 08-17-2016 13:31-0400 BP Diastolic 84 mm[Hg] Eda Becerra PLACEMENT MANAGER [facility] Work Phone: 08-17-2016 13:31-0400 BP Systolic 181 mm[Hg] Eda Becerra PLACEMENT MANAGER [facility] Work Phone: 08-17-2016 13:31-0400 Height 147.32 cm Eda Becerra PLACEMENT MANAGER [facility] Phone: 08-17-2016 13:31-0400 Pulse (Heart Rate) 66 /min Eda Becerra LPN [facility] Phone: 08-17-2016 13:31-0400 Pulse Oximetry 97 % Eda Becerra LPN [facility] Phone: 08-17-2016 13:31-0400 Respiratory Rate 18 /min Eda Becerra LPN [facility] Work Phone: 08-17-2016 13:31-0400 Weight 88 kg Eda Hernan HERBERTN [facility] Phone: 05-10-2016 09:22-0500 Body Temperature 97.88 [degF] Eda Becerra LPN [facility] Phone: 05-10-2016 09:22-0500 Weight 87.27 kg Eda Hernan HERBERTN [facility] Phone: Encounters Encounter Date Encounter Type Care Provider Facility Start: 09-20-2021 Telephone encounter Sarina Kaiser APRN.ART HISTORY PROFESSOR Work Phone: [facility] Procedures Date Procedure Procedure Detail Performing Clinician Start: 07-21-2021 Antibody screen Plan of Treatment Date Care Activity Detail Author Start: 09-19-2024 DIABETES SCREEN DIABETES SCREEN [facility] Start: 08-29-2024 DIABETES SCREEN DIABETES SCREEN [facility] Start: 06-15-2024 DIABETES SCREEN DIABETES SCREEN [facility] Start: 02-02-2022 Influenza vaccination INFLUENZ A (Season Ended) [facility] Start: 08-30-2021 End: 10-30-2021 Basic metabolic 2000 panel - Serum or Plasma BASIC METABOLIC PNL Lab Routine Azotemia Expected: 08/30/2021, Expires: 10/30/2021 [facility] Work Phone: Payers Date Payer Category Payer Medicare [id number] 1. [id number] Social History Date Type Detail Facility Start: 06-14-2021 Tobacco smoking stat us DEIS Never smoked tobacco [facility] Start: 06-14-2021 Tobacco use and exposure Smoke less tobacco non-user [facility] Start: 06-15-2021 End: 08-30-2021 Alcohol intake Lifetime non-drinker (finding) [facility] Start: 06-14-2021 History SDOH Alcohol Frequency 1 [facility] Start: 1935 Sex Assigned At Not on file [facility] Start: 08-20-2021 End: 08-30-2021 Exposure to SARS-CoV-2 (event) Not sure [facility] Start: 1935 Sex Assigned At Female [facility] Medical Equipment Procedure Code Equipment Code Equipment Origin al Text Equipment Identifier Dates Eyv-Sn-U-Kind Implant - [id number] Start: 07-28-2021 Device Angio-Sea l Vip Bondek-Plus 8fr .038in Polyglyd 70cm Closure - [id number] Start: 07-28-2021 Clinical Notes 06-15-2021 to 09-21-2021 Telephone Encounter - Iqra Oquendo RN - 09/21/2021 8:26 AM EDTTelephone Encounter - Yvette Waite LPN - 09/20/2021 10:07 AM EDTTelephone Encounter - Yvette Waite LPN - 09/20/2021 10:05 AM EDT Note Date & Type Note Facility 09-21-2021 Miscellaneous Notes Spoke with pt. Notified of test results and Sarina's recommendations. Pt voices understanding. Iqra Oquendo RN Left message on voicemail requesting pt return call for test results. Office phone number provided. Yvette Waite LPN ----- Message from Sarina Kaiser APRN.CNP sent at 09/20/2021 8:44 AM EDT ----- Please call the patient and report lab results revealed stable BMP. Continue current medical therapy. Sarina Kaiser APRN.CNP documented in this encounter [facility] 08-30-2021 Note HNO ID: [id number] Author: Sarina Kaiser APRN.CNP Service: ? Author Type: Nurse Practitioner Type: Progress Notes Filed: 08/31/2021 11:13 AM Note Text: INTERVENTIONAL CARDIOLOGY SERVICE 1 Month Post-TAVR Follow-Up PRIMARY CARE PHYSICIAN: [place] MD ([facility]) [address] [place] [id number] Chief Complaint Patient presents with: CARD Follow Up 1 Month: s/p TAVR 1 month follow up HISTORY OF PRESENT ILLNESS: Ms. Hayes is a 85 year old female with a PMH significant for HTN, HLD,?MELODIE (on Bipap),?Type II DM, Carotid Artery Disease, and severe who underwent a transcatheter aortic valve replacement with 23 mm Eddy Ezekiel S3 THV with Dr. Aly on 07/28/2021. She presents today for a 1 Month post-TAVR follow up visit. Today, she denies chest pain or chest pressure. She denies dizziness, lightheadedness, syncope, orthopnea, or PND. Improving shortness of breath, increased endurance, and her lower extremity has resolved. Patient tells me she has been able to start running errands herself. She is scheduled to start Cardiac rehab in 2 weeks. She did see her Cardiology PATIENT ACCOUNT REPRESENTATIVE after our last visit for further hypertension management. They decided to monitor her blood pressure. Patient remains hypertensive today. She states her SBP routinely runs 140-150's at home. She is scheduled to follow up her cardiology office in 3 months. She is also scheduled to follow up with her clinical courier in October. Subjective Review of Systems Constitutional: Positive for malaise/fatigue (improving ). Negative for chills, diaphoresis, fever and weight loss. Respiratory: Positive for shortness of breath (improving). Negative for cough. Cardiovascular: Negative for chest pain, palpitations, orthopnea, leg swelling and PND. Gastrointestinal: Negative for abdominal pain, heartburn, nausea and vomiting. Genitourinary: Negative for hematuria. Musculoskeletal: Negative for myalgias. Neurological: Negative for dizziness, tingling, loss of consciousness, weakness and headaches. Endo/Heme/Allergies: Does not bruise/bleed easily. Psychiatric/Behavioral: Negative for depression. 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 - Nonrheumatic aortic valve stenosis - Obesity - Secondary pulmonary arterial hypertension ([facility]) - Spondylisthesis PAST SURGICAL HISTORY Procedure Laterality Date - ANESTHESIA KNEE, ARTHROSCOPIC - APPENDECTOMY - CATARACT EXTRACTION HX - CHG CAPSULOTOMY (YAG LASER) Right eye - ECHO TRANSESOPHAG CONGEN PROBE [facility]ANDR 12/31/2019 - ECHOCARDIOGRAM 07/29/2020 [facility] - EXCISION [facility] NEUROMA EACH - HEART CATHETERIZATION 12/31/2019 [facility] - HYSTERECTOMY - LAMINECTOMY,LUMBAR with spinal fusion - LIGATE FALLOPIAN TUBE - PT ED ORTHOPAEDICS fixation lumbar spine with rods - RECTAL REPAIR W OR W/O MESH - REMOVAL OF OVARY(S) Left - REVISE MEDIAN N/CARPAL TUNNEL SURG - STRESS ECHO 11/10/2019 [facility] - TONSILLECTOMY HX - TOTAL HIP REPLACEMENT Left - TOTAL KNEE REPLACEMENT Bilateral FAMILY HISTORY Problem Relation Age of Onset - Heart disease Mother - Hypertension Mother - Hypertension Father - Hypertension Sister - Heart disease Brother Social History Tobacco Use - Smoking status: Never Smoker - Smokeless tobacco: Never Used Substance Use Topics - Alcohol use: Never - Drug use: Never ALLERGIES Allergen Reactions - Codeine Unknown - Lactose Unknown - Lecithin,Egg Unknown - Nitrofurantoin Macr* Unknown - Penicillins Unknown - Sulfa (Sulfonamide * Rash - Tetracyclines Anaphylaxis Medications: Current Outpatient Medications Medication Sig Dispense Refill - hydrALAZINE (APRESOLINE) 50 mg tablet Take 1 tablet by mouth three times daily. 270 tablet 3 - aspirin 81 mg chewable tablet Take 1 tablet by mouth once daily. 30 tablet 0 - metoprolol succinate ER (TOPROL XL) 50 mg 24 hr tablet Take 50 mg by mouth once daily. - Potassium Gluconate 595 mg (99 mg) tab Take 595 mg by mouth once daily. - melatonin 10 mg cap Take 10 mg by mouth daily at bedtime. - Magnesium 250 mg tab Take 250 mg by mouth once daily. - psyllium husk 0.4 gram cap Take 2 capsules by mouth once daily. - Bpzajyeonnbnz-Wnkeeoah-Ynbxtg (MULTIVITAMIN 50 PLUS) tab Take 1 tablet by mouth once daily. - eplerenone (INSPRA) 25 mg tablet Take 25 mg by mouth twice daily. - loratadine (CLARITIN) 10 mg tablet Take 10 mg by mouth once daily. - gabapentin (NEURONTIN) 600 m (more content not included)... [facility] 08-30-2021 Instructions Sarina Kaiser APRN.ART HISTORY PROFESSOR - 08/30/2021 3:35 PM EDT Repeat blood work (BMP) in 2 weeks to monitor kidney function. The week of September 19. Increase Amlodipine to 10 mg day. Follow up with myself in 6months Heart Failure What is heart failure? Heart failure (HF) means the heart is not pumping blood as well as it should. It may pump at a different speed, pump blood with less force, or pump less blood with each heartbeat. When less blood is flowing out of the heart to the body, muscles and other tissues may not get enough oxygen. The kidneys may not work as well to remove excess fluid in the form of urine. As a result, blood backs up into the blood vessels. The extra fluid seeps into the lungs or other parts of the body. Fluid in the lungs makes it hard to breathe. Fluid seeping into other parts of the body causes swelling. When there is too much fluid in the body, it puts more strain on the heart. Heart failure is one of the most common causes of heart-related illness and in the . What is the cause? A number of things can cause heart failure, such as: Narrowing or blockage in the arteries that bring blood to the heart muscle Infection of the heart Heart attack High blood pressure Heart valve problems Genetic problems with the heart muscle Alcoholism Diabetes Lung disease Problems that may worsen or trigger heart failure, especially if your heart muscle is weak, include: Severe anemia (a low level of red blood cells) An overactive or underactive thyroid gland Infection A heartbeat that is too fast or too slow Too much salt or fluid in the diet Working your body too hard with exercise or daily activities Emotional stress What are the symptoms? The symptoms of heart failure may include: Shortness of breath or trouble breathing, at first just during exercise, then with any activity, and finally even when you are resting Waking up at night with trouble breathing or being unable to lie flat in bed because of shortness of breath Coughing Swollen ankles, feet, and legs Weight gain caused by extra fluid in the body Feeling tired most of the time and not able to do your usual activities Lack of appetite and feeling sick to your stomach Feeling like your heart is racing or fluttering Lightheadedness or fainting How is it diagnosed? Your healthcare provider will ask about your symptoms and examine you. Tests may include: Chest X-ray An ECG (also called an EKG), which measures and records your heartbeat Blood or urine tests Echocardiogram, which uses sound waves (ultrasound) to see how well your heart muscle is pumping How is it treated? Heart failure can be treated and managed. The goals of treatment are: Help your heart so it doesn t have to work as hard Help your heart pump blood better Get rid of extra water in your body Your healthcare provider may prescribe medicine to relax the blood vessels and lower blood pressure. Then the heart doesn t have to work as hard. You may need to take 2 or more medicines to treat your heart failure. It may take several weeks or months to find the best treatment for you. In some cases, heart failure can get better and even be cured. For example, if it is caused by an infection, it may be cured with treatment of the infection. Heart failure due to coronary artery disease is generally not cured and most often gets worse over time. However, carefully following your treatment plan can: Slow down the worsening of heart failure and help you live longer Help prevent trips to the hospital Help you feel better and do more How can I take care of myself? If you have heart failure, there are things you can do to take care of yourself now and prevent problems in the future. Follow your treatment plan and know how to take your medicines. Work as a partner with your provider. This means having regular provider visits and following your treatment plan. Follow the directions that come with your medicine, including information about food or alcohol. Make sure you know how and when to take your medicine. Do not take more or less than you are supposed to take. Many medicines have side effects. A side effect is a symptom or problem that is caused by the medicine. Ask your healthcare provider or pharmacist what side effects your medicine may cause and what you should do if you have side effects. Ask if you should avoid some nonprescription medicines. Don t smoke, eat a healthy diet, and watch your weight and blood pressure. Quit smoking if you are a smoker. Lose weight if you are overweight and eat a healthy diet. ?Follow a low-salt (low-sodium) diet if it is recommended by your provider. Too much salt makes your body keep too much water and makes your heart have to work harder. ?Follow your healthcare provider's advice about how much liquid you should drink. ?Ask your provider if you should avoid drinking alcohol. Alcohol can weaken your heart or may worsen heart failure. Also, some of your medicines may not work well if you drink alcohol. Weigh yourself every morning after you use the bathroom but before you eat or drink anything. Weighing yourself every day helps you know if extra fluid is building up in your body. A buildup of fluid is a sign that your heart failure may be getting worse. Weight gain can let you know about fluid buildup before you start having swelling. Keep track of your weight in a diary or on the calendar. Ask your healthcare provider when you should report weight gain. Letting your provider know about weight gain when it first happens can save you a trip to the emergency room or a stay in the hospital. Also check your pulse and blood pressure every day. Learn how to take your own blood pressure or have a family member learn how to take it. Be as physically active as you can. How active you can be depends on how bad the heart failure is. A program of gentle exercise helps most people. Your provider can tell you what level of exercise is right for you. Exercise helps your heart and body get stronger. It also improves your blood flow and energy level. Don t exercise outdoors if it is very hot, cold, humid, or smoggy. Balance exercise with rest. Make sure that your activities don t make you too tired or short of breath. Take rest breaks during the day. Avoid getting very hot or cold because it may make your heart work harder. Try to lessen the stress in your life. Anxiety and anger can cause a fast heart rate and high blood pressure. If you need help with this, ask your healthcare provider. Protect yourself against infections. Get a flu shot every year. When you have heart failure, you should not get the nasal spray vaccine (FluMist). Get the pneumococcal shot. Ask your healthcare provider: How and when you will hear your test results How long it will take to recover What activities you should avoid and when you can return to your normal activities How to take care of yourself at home What symptoms or problems you should watch for and what to do if you have them Make sure you know when you should come back for a checkup. How can I help prevent heart failure? You can prevent this disease with a heart-healthy lifestyle: Eat a healthy diet and keep a healthy weight. Stay fit with the right kind of exercise for you. Decrease stress. Don t smoke. Limit your use of alcohol. Talk to your healthcare provider about your personal and family medical history and your lifestyle habits. This will help you know what you can do to lower your risk for heart failure. documented in this encounter [facility] 08-30-2021 History of Presen t illness Narrative Images from the original note were not included. INTERVENTIONAL CARDIOLOGY SERVICE 1 Month Post-TAVR Follow-Up PRIMARY CARE PHYSICIAN: New Martinez MD ([facility]) [address] [place] [address] Chief Complaint Patient presents with: CARD Follow Up 1 Month: s/p TAVR 1 month follow up HISTORY OF PRESENT ILLNESS: Ms. Hayes is a 85 year old female with a PMH significant for HTN, HLD, MELODIE (on Bipap), Type II DM, Carotid Artery Disease, and severe who underwent a transcatheter aortic valve replacement with 23 mm Eddy Ezekiel S3 THV with Dr. Aly on 07/28/2021. She presents today for a 1 Month post-TAVR follow up visit. Today, she denies chest pain or chest pressure. She denies dizziness, lightheadedness, syncope, orthopnea, or PND. Improving shortness of breath, increased endurance, and her lower extremity has resolved. Patient tells me she has been able to start running errands herself. She is scheduled to start Cardiac rehab in 2 weeks. She did see her Cardiology PATIENT ACCOUNT REPRESENTATIVE after our last visit for further hypertension management. They decided to monitor her blood pressure. Patient remains hypertensive today. She states her SBP routinely runs 140-150's at home. She is scheduled to follow up her cardiology office in 3 months. She is also scheduled to follow up with her clinical courier in October. Subjective Review of Systems Constitutional: Positive for malaise/fatigue (improving ). Negative for chills, diaphoresis, fever and weight loss. Respiratory: Positive for shortness of breath (improving). Negative for cough. Cardiovascular: Negative for chest pain, palpitations, orthopnea, leg swelling and PND. Gastrointestinal: Negative for abdominal pain, heartburn, nausea and vomiting. Genitourinary: Negative for hematuria. Musculoskeletal: Negative for myalgias. Neurological: Negative for dizziness, tingling, loss of consciousness, weakness and headaches. Endo/Heme/Allergies: Does not bruise/bleed easily. Psychiatric/Behavioral: Negative for depression. 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 Nonrheumatic aortic valve stenosis Obesity Secondary pulmonary arterial hypertension (HCC) Spondylisthesis PAST SURGICAL HISTORY Procedure Laterality Date ANESTHESIA KNEE, ARTHROSCOPIC APPENDECTOMY CATARACT EXTRACTION HX CHG CAPSULOTOMY (YAG LASER) Right eye ECHO TRANSESOPHAG CONGEN PROBE [facility] IMGNG I&R 12/31/2019 ECHOCARDIOGRAM 07/29/2020 [facility] EXCISION [facility] NEUROMA EACH HEART CATHETERIZATION 12/31/2019 [facility] HYSTERECTOMY LAMINECTOMY,LUMBAR with spinal fusion LIGATE FALLOPIAN TUBE PT ED ORTHOPAEDICS fixation lumbar spine with rods RECTAL REPAIR W OR W/O MESH REMOVAL OF OVARY(S) Left REVISE MEDIAN N/CARPAL TUNNEL SURG STRESS ECHO 11/10/2019 [facility] TONSILLECTOMY HX TOTAL HIP REPLACEMENT Left TOTAL KNEE REPLACEMENT Bilateral FAMILY HISTORY Problem Relation Age of Onset Heart disease Mother Hypertension Mother Hypertension Father Hypertension Sister Heart disease Brother Social History Tobacco Use Smoking status: Never Smoker Smokeless tobacco: Never Used Substance Use Topics Alcohol use: Never Drug use: Never ALLERGIES Allergen Reactions Codeine Unknown Lactose Unknown Lecithin,Egg Unknown Nitrofurantoin Macr* Unknown Penicillins Unknown Sulfa (Sulfonamide * Rash Tetracyclines Anaphylaxis Medications: Current Outpatient Medications Medication Sig Dispense Refill hydrALAZINE (APRESOLINE) 50 mg tablet Take 1 tablet by mouth three times daily. 270 tablet 3 aspirin 81 mg chewable tablet Take 1 tablet by mouth once daily. 30 tablet 0 metoprolol succinate ER (TOPROL XL) 50 mg 24 hr tablet Take 50 mg by mouth once daily. Potassium Gluconate 595 mg (99 mg) tab Take 595 mg by mouth once daily. melatonin 10 mg cap Take 10 mg by mouth daily at bedtime. Magnesium 250 mg tab Take 250 mg by mouth once daily. psyllium husk 0.4 gram cap Take 2 capsules by mouth once daily. Ramyxmolsbdsd-Daeuahnn-Ognmhs (MULTIVITAMIN 50 PLUS) tab Take 1 tablet by mouth once daily. eplerenone (INSPRA) 25 mg tablet Take 25 mg by mouth twice daily. loratadine (CLARITIN) 10 mg tablet Take 10 mg by mouth once daily. gabapentin (NEURONTIN) 600 mg tablet Take 600 mg by mouth once daily. metFORMIN (GLUCOPHAGE) 500 mg tablet Take 500 mg by mouth twice daily. famotidine (PEPCID) 20 mg tablet Take 20 mg by mouth once daily. furosemide (LASIX) 40 mg tablet Take 40 mg by mouth twice daily. losartan (COZAAR) 100 mg tablet Take 50 mg by mouth twice daily. Acetaminophen 500 mg cap Take 1,000 mg by mouth twice daily. fluticasone (FLONASE) 50 mcg/actuation nasal spray Use 1 Bieber in each nostril twice daily as needed. carboxymethylcell-glycerin,PF, 0.5-1 % dpet Use 1 Drop in eyes as needed. mecobalamin, vitamin B12, 1,000 mcg ODT Dissolve 1,000 mcg under the tongue once daily. biotin 5,000 mcg ODT Take 5,000 mcg by mouth once daily. Cholecalciferol, Vitamin D3, 50 mcg (2,000 unit) cap Take 2,000 Units by mouth once daily. diphenhydrAMINE-Acetaminophen 25-500 mg tab Take 1 tablet by mouth daily at bedtime. amLODIPine (NORVASC) 10 mg tablet Take 1 tablet by mouth once daily. 90 tablet 3 Current Facility-Administered Medications Medication Dose Route Frequency Provider Last Rate Last Admin perflutren lipid microspheres 1.3 mL in NaCl (PF) 0.9% 10 mL injection (DEFINITY) INTRAVENOUS DIRECTED PRN Sarina Kaiser APRN.CNP sodium chloride 0.9 % (flush) 10 mL (BD POSIFLUSH) 10 mL INTRAVENOUS DIRECTED PRN Sarina Kaiser APRN.KIRIT Objective Physical Examination: Vitals:BP 146/68 Pulse 63 Wt 187 lb (84.8kg) SpO2 99% Last 2 Encounter Wt Readings: Date: Wt: 08/04/2021 186 lb (84.4 kg) 07/21/2021 186 lb (84.4 kg) Physical Exam Vitals and nursing note reviewed. Constitutional: Appearance: Normal appearance. She is obese. HENT: Head: Normocephalic and atraumatic. Neck: Vascular: No carotid bruit or JVD. Cardiovascular: Rate and Rhythm: Normal rate and regular rhythm. Pulses: Radial pulses are 3+ on the right side. Posterior tibial pulses are 2+ on the right side and 2+ on the left side. Heart sounds: S1 normal and S2 normal. Heart sounds not distant. Murmur heard. Systolic murmur is present with a grade of 1/6. No friction rub. No gallop. No S3 or S4 sounds. Pulmonary: Effort: Pulmonary effort is normal. Breath sounds: Normal breath sounds. Abdominal: Palpations: Abdomen is soft. Musculoskeletal: General: Normal range of motion. Cervical back: Normal range of motion and neck supple. Skin: General: Skin is warm and dry. Neurological: Mental Status: She is alert and oriented to person, place, and time. Motor: Motor function is intact. Gait: Gait is intact. Psychiatric: Mood and Affect: Mood and affect normal. Cognition and Memory: Memory normal. Judgment: Judgment normal. Diagnostic tests reviewed for today's visit: Electrocardiogram (ECG) NSR Echocardiogram 08/29/2021 - The left ventricle is normal in size. Left ventricular systolic function is normal. EF = 72 5% (2D biplane) Indeterminate left ventricular diastolic dysfunction due to inconsistent or technically suboptimal data. - The right ventricle is normal in size. Right ventricular systolic function is normal. - Eddy S3 prosthetic aortic valve (size #23). There is no aortic valve regurgitation. The peak gradient is 21 mmHg, the mean gradient is 12 mmHg and the dimensionless valve index is 0.38. - The patient has not had a prior CC echocardiographic exam for comparison. TAVR Procedure Note 07/28/2021 PROCEDURES: 1. Successful transfemoral implantation of a 23 mm Eddy-Ezekiel S3 THV deployed at -1mL fill volume 2. Placement of a temporary venous pacemaker 3. Right femoral arterial access site closure with a single Perclose Proglide device and 8Fr. Angioseal 4. Selective angiography of the right common femoral artery (first order) 5. Successful placement and removal of a [place] Cerebral Embolic Protection device via the right radial artery Assessment and Plan: S/P TAVR - Underwent a TAVR on 07/28/2021, with 23 mm Eddy Ezekiel S3 THV with Dr. Aly. Today, she reports improvement in her endurance and decreased fatigue, lower extremity edema, and shortness of breath. Overall, she is feeling much better since her TAVR. - 1 Month Post TAVR echo revealed well seated valve with a peak and mean gradient of 21 mmHg and 12 mmHg, DI of 0.38. No AI noted on echo. LV EF of 72%. - 1 Month lab work revealed Creatinine of 1.09 and Hgb of 11.9 - KCCQ scanned into chart. - EKG completed today. - NYHA Class II today - Cardiac Rehab scheduled in 2 weeks - Continue ASA 81 mg - Discontinue Plavix - Follow up in 5 months for 6 month post TAVR evaluation. Azotemia - BUN/Cr: 44/1.09, patient has CKD. Will continue to monitor. Patient reports significant improved in lower extremity edema. If BMP is stable and blood pressure under good control, may trial decreased dose of Lasix. - Repeat BMP in 2 weeks. HTN - Previously significantly elevated during out last office visit. Hydralazine increased at that time and patient was evaluated by her General Wood Buffer a week later and no further medications changes were added at that time. - Today's BP: 190/70, recheck was 146/68 - Increase Amlodipine to 10 mg daily. Monitor BP 2 x day. - Continue hydralazine 50 mg TID, Toprol XL 50 mg. Eplerenone 25 mg, lasix 40 mg, Losartan 100 mg - BP Goal <140/80 - Follow up with General Wood Buffer as scheduled in November, or sooner if BP does not improve with increased dose of Amlodipine. - Avoid stimulants and Caffeine - Low Sodium diet and weight loss advised Follow up with myself in 5 months SIGNATURE: Sarina Kaiser APRN.CNP PATIENT NAME: Rusty Hayes DATE: 08/30/2021 TIME: 11:42 AM PAGER/CONTACT #: [phone] documented in this encounter [facility] 08-30-2021 Nurse Note CARDIAC REHAB 5 METER WALK TEST SERVICE DATE: 08/30/2021 SERVICE TIME: 255 pm ASSESSMENT: 1. 6 secs 2. 6 secs 3. 6 secs SIGNATURE: Paloma Last [place] PATIENT NAME: Rusty Hayes DATE: August 30, 2021 TIME: 3:00 PM PAGER/CONTACT #: [phone] documented in this encounter [facility] 08-04-2021 Note HNO ID: [id number] Author: Sarina Kaiser APRN.CNP Service: ? Author Type: Nurse Practitioner Type: Progress Notes Filed: 08/04/2021 2:34 PM Note Text: INTERVENTIONAL CARDIOLOGY SERVICE 1 Week Post-TAVR Follow-Up PRIMARY CARE PHYSICIAN: New Martinez MD ([facility]) [address] [place] [address] Chief Complaint Patient presents with: Cardiology Follow Up : 1 week post op s/p TAVR HISTORY OF PRESENT ILLNESS: Ms. Hayes is a 85 year old female with a PMH significant for HTN, HLD, MELODIE (on Bipap), Type II DM, Carotid Artery Disease, and severe who underwent a transcatheter aortic valve replacement with 23 mm Eddy Ezekiel S3 THV with Dr. Aly on 07/28/2021 . While in the hospital, the patient did not have any complications. The patient was discharged on 07/29/2021 and presents with her daughter today for a 1 week post-TAVR follow up visit. Today, she denies chest pain or chest pressure. She does have muscular discomfort on her chest and left ribs, with movement. She states she pulled a muscle while adjusting herself in the recliner. Her discomfot improves when she walks around. She endorses continued chronic shortness of breath and fatigue but has noticed her lower extremity edema has improved. She denies palpitations, dizziness, lightheadedness, headaches, or syncope. Her blood pressure is elevated in today's visit but she denies any neurological symptoms. Subjective Review of Systems Constitutional: Positive for malaise/fatigue. Negative for chills, diaphoresis, fever and weight loss. Respiratory: Positive for shortness of breath. Negative for cough. Cardiovascular: Negative for chest pain, palpitations, orthopnea and leg swelling. Gastrointestinal: Negative for abdominal pain, heartburn, nausea and vomiting. Genitourinary: Negative for hematuria. Musculoskeletal: Positive for back pain (Chronic). Negative for myalgias. Neurological: Negative for dizziness, tingling, tremors, sensory change, speech change, focal weakness, loss of consciousness, weakness and headaches. Endo/Heme/Allergies: Does not bruise/bleed easily. Psychiatric/Behavioral: Negative for depression and memory loss. The patient is not nervous/anxious. PAST MEDICAL HISTORY Diagnosis Date - Aortic valve stenosis - Bronchiectasis (HCC) - Bronchitis - Carotid artery disease (HCC) - CHF (congestive heart failure) (HCC) - Diabetes mellitus (HCC) - Dyspnea - Essential (primary) hypertension - Infection and inflammatory reaction due to other internal prosthetic devices, implants and grafts, initial encounter ([facility]) - Nonrheumatic aortic valve stenosis - Obesity - Secondary pulmonary arterial hypertension (HCC) - Spondylisthesis PAST SURGICAL HISTORY Procedure Laterality Date - ANESTHESIA KNEE, ARTHROSCOPIC - APPENDECTOMY - CATARACT EXTRACTION HX - CHG CAPSULOTOMY (YAG LASER) Right eye - ECHO TRANSESOPHAG CONGEN PROBE [facility] 12/31/2019 - ECHOCARDIOGRAM 07/29/2020 [facility] - EXCISION [facility] NEUROMA EACH - HEART CATHETERIZATION 12/31/2019 [facility] - HYSTERECTOMY - LAMINECTOMY,LUMBAR with spinal fusion - LIGATE FALLOPIAN TUBE - PT ED ORTHOPAEDICS fixation lumbar spine with rods - RECTAL REPAIR W OR W/O MESH - REMOVAL OF OVARY(S) Left - REVISE MEDIAN N/CARPAL TUNNEL SURG - STRESS ECHO 11/10/2019 [facility] - TONSILLECTOMY HX - TOTAL HIP REPLACEMENT Left - TOTAL KNEE REPLACEMENT Bilateral FAMILY HISTORY Problem Relation Age of Onset - Heart disease Mother - Hypertension Mother - Hypertension Father - Hypertension Sister - Heart disease Brother Social History Tobacco Use - Smoking status: Never Smoker - Smokeless tobacco: Never Used Substance Use Topics - Alcohol use: Never - Drug use: Never ALLERGIES Allergen Reactions - Codeine Unknown - Lactose Unknown - Lecithin,Egg Unknown - Nitrofurantoin Macr* Unknown - Penicillins Unknown - Sulfa (Sulfonamide * Rash - Tetracyclines Anaphylaxis Medications: Current Outpatient Medications Medication Sig Dispense Refill - aspirin 81 mg chewable tablet Take 1 tablet by mouth once daily. 30 tablet 0 - clopidogrel (PLAVIX) 75 mg tablet Take 1 tablet by mouth once daily. 30 tablet 0 - hydrALAZINE (APRESOLINE) 25 mg tablet Take 25 mg by mouth three times daily. - metoprolol succinate ER (TOPROL XL) 50 mg 24 hr tablet Take 50 mg by mouth once daily. - Potassium Gluconate 595 mg (99 mg) tab Take 595 mg by mouth once daily. - melatonin 10 mg cap Take 10 mg by mouth daily at bedtime. - Magnesium 250 mg tab Take 250 mg by mouth once daily. - psyllium husk 0.4 gram cap Take 2 capsules by mouth once daily. - Pciovncypzzdc-Plnjzdhe-Embgrj (MULTIVITAMIN 50 PLUS) tab Take 1 tablet by mouth once daily. - eplerenone (INSPRA) 25 mg tablet Take 25 mg by mouth twice daily. - loratadine (CLARITIN) 10 m (more content not included)... [facility] 07-29-2021 Note HNO ID: [id number] Author: Nataly Phelan RN Service: Care Management Author Type: Registered Nurse Type: Care Mgt Progress Note Filed: 07/29/2021 10:48 AM Note Text: CARE MANAGEMENT PROGRESS NOTE SERVICE DATE: 07/29/2021 SERVICE TIME: 10:48 AM LOS: 1 day This patient has been screened for Care Management Transitional Planning Services. At this time, it does not appear this patient will require transition planning services. Should this change, and the patient require transition planning services during this admission, please contact Case Management. SIGNATURE: Nataly Phelan RN PATIENT NAME: Rusty Hayes DATE: July 29, 2021 TIME: 10:48 AM PAGER/CONTACT #: [phone] [facility] 07-29-2021 Note HNO ID: [id number] Author: Kodi Caballero MD Service: Cardiovascular Medicine Author Type: Resident Type: Progress Notes Filed: 07/29/2021 7:02 AM Note Text: Attestation signed by Mike Rondon MD at 07/29/2021 3:18 PM Attending Note I evaluated the patient and personally participated in the castro components. I agree with the resident's findings and plan as documented and have discussed the case and management of the patient's care with the resident. Patient doing well from a cardiac perspective with no acute events overnight. Groin access site shows mild bruising but no hematoma or palpable thrill. She states that she is feeling better and is getting ready to ambulate. Transthoracic echocardiogram pending If no acute issues, would anticipate discharge to home later today. Signature: Mike Rondon MD Date: 07/29/2021 Time: 3:17 PM [facility] CVICU PROGRESS NOTE Service Date: 07/29/2021 Service Time: 6:53 AM HPI: HPI: 85 yo F with PMH of HTN, HLD, MELODIE on BiPAP, T2DM, CAD and severe presenting today for TAVR. The patient has not been having chest pain or pressure, but she has been experiencing fatigue, dyspnea, orthopnea, leg swelling, dizziness. No PND, syncopal episodes or palpitations. ? The patient tolerated the procedure well and has been admitted to CVICU for close monitoring. ? Interval History: No overnight events. The patient only complains of inadequate sleep in the hospital compared to home and having to use her inhaler once. Also complains from a sore left hand related to a hematoma after her blood work. Currently does not have chest pain or dyspnea. Labs today unremarkable. Echo 07/28 showed EF 60% Telemetry: Normal sinus rhythm Inpatient Medications: Current Facility-Administered Medications Medication Dose Route Frequency - gabapentin 600 mg cap(s) (NEURONTIN) 600 mg ORAL DAILY - loratadine 10 mg tab(s) (CLARITIN) 10 mg ORAL DAILY - metFORMIN 500 mg tab(s) (GLUCOPHAGE) 500 mg ORAL BID - losartan 50 mg tab(s) (COZAAR) 50 mg ORAL BID - hydrALAZINE 25 mg tab(s) (APRESOLINE) 25 mg ORAL TID - metoprolol succinate ER 50 mg tab(s) (TOPROL XL) 50 mg ORAL DAILY - amLODIPine 5 mg tab(s) (NORVASC) 5 mg ORAL DAILY - furosemide 40 mg tab(s) (LASIX) 40 mg ORAL BID - aspirin 81 mg chewable tab(s) 81 mg ORAL DAILY - eplerenone 25 mg tab(s) (INSPRA) 25 mg ORAL BID - sodium chloride 0.9 % (flush) 3-5 mL (BD POSIFLUSH) 3-5 mL INTRAVENOUS q 12 H - NaCl 0.9% iv flush bag 20 mL INTRAVENOUS PRN - cephALEXin 500 mg cap(s) (KEFLEX) 500 mg ORAL q 12 H - clopidogrel 75 mg tab(s) (PLAVIX) 75 mg ORAL DAILY - traMADol 50-100 mg tab(s) (ULTRAM) 50-100 mg ORAL q 6 H PRN - melatonin 9 mg tab(s) 9 mg ORAL DAILY (8 PM) - acetaminophen 1,000 mg tab(s) (TYLENOL) 1,000 mg ORAL q 6 H - simethicone, chewable 80 mg tab(s) (MYLICON) 80 mg ORAL QID PRN - sodium chloride 0.9 % (flush) 2-10 mL (BD POSIFLUSH) 2-10 mL INTRAVENOUS DIRECTED PRN And - perflutren lipid microspheres 1.1 mg/mL 1.3 mL injection (DEFINITY) 1.3 mL INTRAVENOUS DIRECTED PRN Home Medications: aspirin 81 mg chewable tablet, Take 81 mg by mouth once daily. hydrALAZINE (APRESOLINE) 25 mg tablet, Take 25 mg by mouth three times daily. metoprolol succinate ER (TOPROL XL) 50 mg 24 hr tablet, Take 50 mg by mouth once daily. Potassium Gluconate 595 mg (99 mg) tab, Take 595 mg by mouth once daily. melatonin 10 mg cap, Take 10 mg by mouth daily at bedtime. Magnesium 250 mg tab, Take 250 mg by mouth once daily. psyllium husk 0.4 gram cap, Take 2 capsules by mouth once daily. Ajvdtahmfyxkv-Rnoqluez-Hytahd (MULTIVITAMIN 50 PLUS) tab, Take 1 tablet by mouth once daily. eplerenone (INSPRA) 25 mg tablet, Take 25 mg by mouth twice daily. loratadine (CLARITIN) 10 mg tablet, Take 10 mg by mouth once daily. gabapentin (NEURONTIN) 600 mg tablet, Take 600 mg by mouth once daily. amLODIPine (NORVASC) 5 mg tablet, Take 5 mg by mouth once daily. metFORMIN (GLUCOPHAGE) 500 mg tablet, Take 500 mg by mouth twice daily. furosemide (LASIX) 40 mg tablet, Take 40 mg by mouth twice daily. losartan (COZAAR) 100 mg tablet, Take 50 mg by mouth twice daily. Acetaminophen 500 mg cap, Take 1,000 mg by mouth twice daily. fluticasone (FLONASE) 50 mcg/actuation nasal spray, Use 1 Bieber in each nostril twice daily as needed. carboxymethylcell-glycerin,PF, 0.5-1 % dpet, Use 1 Drop in eyes as needed. mecobalamin, vitamin B12, 1,000 mcg ODT, Dissolve 1,000 mcg under the tongue once daily. biotin 5,000 mcg ODT, Take 5,000 mcg by mouth once daily. Cholecalciferol, Vitamin D3, 50 mcg (2,000 unit) cap, Take 2,000 Units by mouth once daily. diphenhydrAMINE-Acetaminophen 25-500 mg tab, Take 1 tablet by mouth daily at bedtime. famotidine (PEPCID) 20 mg (more content not included)... [facility] 07-28-2021 Note HNO ID: [id number] Author: [facility] ([facility] [employer]) Service: Pharmacy Author Type: Quill Layer Type: Plan of Care Filed: 07/28/2021 4:34 PM Note Text: PHARMACY MEDICATION REVIEW Patient Name: Rusty Hayes : 1935 The following medications were updated within the [facility] [facility] medication list: Medications ADDED to [facility] medication list ? Medications CHANGED on [facility] [facility] medication list ? Medications REMOVED from [facility] [facility] medication list albuterol HFA (PROVENTIL HFA) inhaler Course of therapy completed simethicone, chewable (MYLICON) 80 mg chewable tablet Course of therapy completed ? Additional comments: Verified medication information with pharmacy and chart review. Did not confirm with patient/family. Did not check taking box. Removed albuterol inhaler - no current fill history per pharmacy. removed Mylicon - per information patient no longer taking. Retail pharmacy confirms fill dates current. The below information represents the best possible medication history: Yes Medication history completed by: Quill Layer: Eden Santos ([employer]) Source of history: Pharmacy records: [facility] [phone] and [facility] [phone] and [facility] records Medication nonadherence identified: Unable to assess Reconciliation completed: No, pharmacist not yet reviewed Patient interested in Bedside Delivery Services or using OP Pharmacy at discharge? Unable to assess Preferred outpatient pharmacy: e- [facility] [address] [place] [id number] [address] [facility] [phone] e- [email or web address] [place] [address] [address] [facility] - [phone] Allergies: Codeine Unknown Lactose Unknown Lecithin,Egg Unknown Nitrofurantoin Macr* Unknown Penicillins Unknown Sulfa (Sulfonamide * Rash Tetracyclines Anaphylaxis Prior to Admission Medications Prescriptions Last Dose Informant Patient Reported? Taking? Acetaminophen 500 mg cap 07/27/2021 at Unknown time Yes Yes Sig: Take 1,000 mg by mouth twice daily. Cholecalciferol, Vitamin D3, 50 mcg (2,000 unit) cap 07/27/2021 at Unknown time Yes Yes Sig: Take 2,000 Units by mouth once daily. Magnesium 250 mg tab 07/27/2021 at Unknown time Yes Yes Sig: Take 250 mg by mouth once daily. Scpewbrkyuhej-Cjvuqhui-Joorzn (MULTIVITAMIN 50 PLUS) tab 07/27/2021 at Unknown time Yes Yes Sig: Take 1 tablet by mouth once daily. Potassium Gluconate 595 mg (99 mg) tab 07/27/2021 at Unknown time Yes Yes Sig: Take 595 mg by mouth once daily. amLODIPine (NORVASC) 5 mg tablet 07/27/2021 at Unknown time Yes Yes Sig: Take 5 mg by mouth once daily. aspirin 81 mg chewable tablet 07/28/2021 at 0645 Yes Yes Sig: Take 81 mg by mouth once daily. biotin 5,000 mcg ODT 07/27/2021 at Unknown time Yes Yes Sig: Take 5,000 mcg by mouth once daily. carboxymethylcell-glycerin,PF, 0.5-1 % dpet Past Week at Unknown time Yes Yes Sig: Use 1 Drop in eyes as needed. diphenhydrAMINE-Acetaminophen 25-500 mg tab 07/27/2021 at Unknown time Yes Yes Sig: Take 1 tablet by mouth daily at bedtime. eplerenone (INSPRA) 25 mg tablet 07/27/2021 at Unknown time Yes Yes Sig: Take 25 mg by mouth twice daily. famotidine (PEPCID) 20 mg tablet Unknown at Unknown time Yes No Sig: Take 20 mg by mouth once daily. fluticasone (FLONASE) 50 mcg/actuation nasal spray Past Week at Unknown time Yes Yes Sig: Use 1 Bieber in each nostril twice daily as needed. furosemide (LASIX) 40 mg tablet 07/27/2021 at Unknown time Yes Yes Sig: Take 40 mg by mouth twice daily. gabapentin (NEURONTIN) 600 mg tablet 07/27/2021 at Unknown time Yes Yes Sig: Take 600 mg by mouth once daily. hydrALAZINE (APRESOLINE) 25 mg tablet 07/27/2021 at Unknown time Yes Yes Sig: Take 25 mg by mouth three times daily. loratadine (CLARITIN) 10 mg tablet 07/27/2021 at Unknown time Yes Yes Sig: Take 10 mg by mouth once daily. losartan (COZAAR) 100 mg tablet 07/27/2021 at Unknown time Yes Yes Sig: Take 50 mg by mouth twice daily. mecobalamin, vitamin B12, 1,000 mcg ODT 07/27/2021 at Unknown time Yes Yes Sig: Dissolve 1,000 mcg under the tongue once daily. melatonin 10 mg cap 07/27/2021 at Unknown time Yes Yes Sig: Take 10 mg by mouth daily at bedtime. metFORMIN (GLUCOPHAGE) 500 mg tablet 07/25/2021 Yes Yes Sig: Take 500 mg by mouth twice daily. metoprolol succinate ER (TOPROL XL) 50 mg 24 hr tablet 07/27/2021 at Unknown time Yes Yes Sig: Take 50 mg by mouth once daily. psyllium husk 0.4 gram cap 07/27/2021 at Unknown time Yes Yes Sig: Take 2 capsules by mouth once daily. Facility-Administered Medications Last Administration Doses Remaining perflutren lipid microspheres 1.3 mL in NaCl (PF) 0.9% 10 mL injection (DEFINITY) None recorded 1 sodium chloride 0.9 % (flush) 10 mL (BD POSIFLUSH) None recorded 1 Eden Santos ([employer]) [id number] 07/28/2021 [facility] 07-21-2021 Note HNO ID: [id number] Author: Sarina Kaiser APRN.ART HISTORY PROFESSOR Service: ? Author Type: Nurse Practitioner Type: Progress Notes Filed: 07/25/2021 2:56 PM Note Text: INTERVENTIONAL CARDIOLOGY SERVICE Transcatheter Aortic Valve Replacement Preoperative History AND Physical Exam PRIMARY CARE PHYSICIAN: New Martinez MD ([facility]) [address] [place] [address] CARE TEAM: [employer] Apex Developer: Dr. Mike Rondon Cardiac Surgeon: Dr. Anthony Michaud and Dr. Kenneth Rizvi Patient Info: Rusty Hayes 1935 85 year old Procedure: Transcatheter Aortic Valve Replacement Diagnosis: Severe Aortic Valve Stenosis Date of Procedure: 07/28/2021 OR #: 10 CPT Code: 44889 Diagnosis Code: I35.9 HISTORY OF PRESENT ILLNESS: Ms. Hayes is a 85 year old female with a known past medical history significant for HTN, HLD, MELODIE (on Bipap), Type II DM, Carotid Artery Disease, and severe who presents today for a history and physical exam and for patient education in preporation for transcatheter aortic valve replacement. Today, she denies chest pain or pressure. She does endorse fatigue, shortness of breath, orthopnea, leg swelling, and dizziness. She denies PND, palpitations, or syncope. Subjective Review of Systems Constitutional: Positive for malaise/fatigue. Negative for chills, diaphoresis, fever and weight loss. Respiratory: Positive for shortness of breath. Negative for cough. Cardiovascular: Positive for orthopnea and leg swelling (LEFT LEG). Negative for chest pain, palpitations and PND. Gastrointestinal: Negative for abdominal pain, heartburn, nausea and vomiting. Genitourinary: Negative for hematuria. Musculoskeletal: Negative for myalgias. Neurological: Positive for dizziness. Negative for tingling, loss of consciousness, weakness and headaches. Endo/Heme/Allergies: Does not bruise/bleed easily. Psychiatric/Behavioral: Negative for depression. PAST MEDICAL HISTORY Diagnosis Date - Aortic valve stenosis - Bronchiectasis (HCC) - Bronchitis - Carotid artery disease (HCC) - CHF (congestive heart failure) ([facility]) - Diabetes mellitus (HCC) - Dyspnea - Essential (primary) hypertension - Infection and inflammatory reaction due to other internal prosthetic devices, implants and grafts, initial encounter ([facility]) - Nonrheumatic aortic valve stenosis - Obesity - Secondary pulmonary arterial hypertension (HCC) - Spondylisthesis PAST SURGICAL HISTORY Procedure Laterality Date - ANESTHESIA KNEE, ARTHROSCOPIC - APPENDECTOMY - CATARACT EXTRACTION HX - CHG CAPSULOTOMY (YAG LASER) Right eye - ECHO TRANSESOPHAG CONGEN PROBE [facility] IM[facility] IANDR 12/31/2019 - ECHOCARDIOGRAM 07/29/2020 [facility] - EXCISION [facility] NEUROMA EACH - HEART CATHETERIZATION 12/31/2019 [facility] - HYSTERECTOMY - LAMINECTOMY,LUMBAR with spinal fusion - LIGATE FALLOPIAN TUBE - PT ED ORTHOPAEDICS fixation lumbar spine with rods - RECTAL REPAIR W OR W/O MESH - REMOVAL OF OVARY(S) Left - REVISE MEDIAN N/CARPAL TUNNEL SURG - STRESS ECHO 11/10/2019 [facility] - TONSILLECTOMY HX - TOTAL HIP REPLACEMENT Left - TOTAL KNEE REPLACEMENT Bilateral FAMILY HISTORY Problem Relation Age of Onset - Heart disease Mother - Hypertension Mother - Hypertension Father - Hypertension Sister - Heart disease Brother Social History Tobacco Use - Smoking status: Never Smoker - Smokeless tobacco: Never Used Substance Use Topics - Alcohol use: Never - Drug use: Never ALLERGIES Allergen Reactions - Codeine Unknown - Lactose Unknown - Lecithin,Egg Unknown - Nitrofurantoin Macr* Unknown - Penicillins Unknown - Sulfa (Sulfonamide * Rash - Tetracyclines Anaphylaxis Medications Current Outpatient Medications Medication Sig Dispense Refill - aspirin 81 mg chewable tablet Take 81 mg by mouth once daily. - hydrALAZINE (APRESOLINE) 25 mg tablet Take 25 mg by mouth three times daily. - metoprolol succinate ER (TOPROL XL) 50 mg 24 hr tablet Take 50 mg by mouth once daily. - Potassium Gluconate 595 mg (99 mg) tab Take 595 mg by mouth once daily. - melatonin 10 mg cap Take 10 mg by mouth daily at bedtime. - Magnesium 250 mg tab Take 250 mg by mouth once daily. - psyllium husk 0.4 gram cap Take 2 capsules by mouth once daily. - White Petrolatum-Mineral Oil (REFRESH LACRI-LUBE) 56.8-42.5 % oint Use 1 application in both eyes as needed. - Oshnhaaccitcb-Pqhicsui-Ouvjcc (MULTIVITAMIN 50 PLUS) tab Take 1 tablet by mouth once daily. - eplerenone (INSPRA) 25 mg tablet Take 25 mg by mouth twice daily. - loratadine (CLARITIN) 10 mg tablet Take 10 mg by mouth once daily. - gabapentin (NEURONTIN) 600 mg tablet Take 600 mg by mouth once daily. - amLODIPine (NORVASC) 5 mg tablet Take 5 mg by mouth once daily. - metFORMIN (GLUCOPHAGE) 500 mg tablet Take 500 mg by mouth twice daily. - famotidine (PEPCID) 20 mg (more content not included)... [facility] 07-07-2021 Note HNO ID: [id number] Author: Sarina Kaiser APRN.KIRIT Service: ? Author Type: Nurse Practitioner Type: Progress Notes Filed: 07/07/2021 1:04 PM Note Text: MULTI DISCIPLINARY HIGH RISK AVR CARDIAC TEAM Members present: Dr. Rondon, Dr. Michaud, Dr. Arizmendi, Dr. Rizvi, Dr. Foster, Dr. Antunez, Dr. Ross, Dr. George, Carmen ROJO, KIRIT, N. Job ROJO CNP, Mat Barboza CNP, SURENDRA Hassan, SURENDRA Torres. Berny Miguel APRN, CNP Presenting Physician: see members listed above PATIENT NAME:Rusty Hayes DATE: 07/07/2021 Outcome: Rusty Hayes history and imaging were reviewed by the physicians in attendance. Patient had dobutamine stress test that revealed increased aortic valve mean gradient of 53 mmHg. The collaborative recommendation would be to proceed with TAVR procedure. These recommendations will be communicated to the patient by our office. Sarina Kaiser APRN.KIRIT 07/07/2021 [facility] 06-17-2021 Miscellaneous Notes Spoke with patient and scheduled pre op covid testing STEVAN Madison Please arrange COVID testing 06/28/21 for 06/30/21 heart cath. TY Iqra Oquendo RN Spoke with pt. She is agreeable to TAVR scan and cath 06/30/21. She voices understanding to the following instructions: You have been scheduled for a TAVR scan and heart cath on 06/30/21. Instructions: -You are to report to the Heart and Vascular Entrance at [facility] at 8:30 am 06/30/21. -You are to increase water intake day prior to heart cath. You may eat a light snack and drink clear liquids until 3 hours prior to procedure arrival time. -With a sip of water on 06/30/21 morning take: Aspirin 325mg along with usual morning BP meds- hydralazine, amlodipine and Inspra. Pt will take usual metoprolol 06/29 PM. -Pt to hold metformin 06/28, 06/29 and 06/30 am. -Labs done 06/15/21. -You will be contacted with a COVID testing appointment. The test will be done 2 days prior to the procedure date. - You must have someone drive you home from your procedure. You are allowed 1 visitor to come in with you. You both are expected to arrive wearing masks. -chemical laboratory chief policy is you are not to be alone the first evening. -Any questions or concerns please contact our office at [phone] (opt #3 Nursing). Iqra Oquendo RN Left message on voicemail requesting pt return call for heart cath date and instructions. Office phone number provided. Iqra Oquendo RN Schedule LHC on 06/30/[address] Aly documented in this encounter [facility] 06-15-2021 Note HNO ID: [id number] Author: Kenneth Rizvi MD Service: ? Author Type: Physician Type: Progress Notes Filed: 06/15/2021 1:59 PM Note Text: PRIMARY CARE PHYSICIAN: New Martinez MD ([facility]) [address] [place] [id number] Subjective Chief Complaint Patient presents with: Valvular Heart Disease HISTORY OF PRESENT ILLNESS: Ms. Hayes is a 85 year old female with a history of hypertension, hyperlipidemia, DM type II, carotid artery disease, bronchitis with multiple episodes of pneumonia, presenting for evaluation of severe aortic stenosis. Symptoms mainly include shortness of breath, which has been present for about 6 months and has been worsening over time. She is unable to do mind reader, ambulate any amount of distance, or climb stairs or inclines without becoming short of breath to the point of taking a rest. She denies nausea, vomiting, fevers, chills, chest pain, orthopnea, PND, syncope or presyncope, palpitations, recent hospitalizations, no recent cancer diagnoses, easily bleeding or bruising. She does have some lower extremity swelling which has been present for many years. Review of Systems Constitutional: Negative for chills, fever, malaise/fatigue and weight loss. HENT: Negative for sore throat. Eyes: Negative for blurred vision and double vision. Respiratory: Positive for shortness of breath. Negative for cough, hemoptysis, wheezing and stridor. Cardiovascular: Positive for leg swelling. Negative for chest pain, palpitations, orthopnea and PND. Gastrointestinal: Negative for abdominal pain, melena, nausea and vomiting. Genitourinary: Negative for flank pain and hematuria. Musculoskeletal: Negative for myalgias. Skin: Negative for rash. Neurological: Negative for dizziness, seizures, loss of consciousness, weakness and headaches. Endo/Heme/Allergies: Does not bruise/bleed easily. Objective PAST MEDICAL HISTORY Diagnosis Date - Aortic valve stenosis - Bronchiectasis ([facility]) - Bronchitis - Carotid artery disease ([facility]) - CHF (congestive heart failure) ([facility]) - Diabetes mellitus ([facility]) - Dyspnea - Essential (primary) hypertension - Infection and inflammatory reaction due to other internal prosthetic devices, implants and grafts, initial encounter ([facility]) - Obesity - Secondary pulmonary arterial hypertension ([facility]) - Spondylisthesis PAST SURGICAL HISTORY Procedure Laterality Date - ANESTHESIA KNEE, ARTHROSCOPIC - APPENDECTOMY - CATARACT EXTRACTION HX - CHG CAPSULOTOMY (YAG LASER) Right eye - ECHOCARDIOGRAM 07/29/2020 [facility] - EXCISION [facility] NEUROMA EACH - HEART CATHETERIZATION 12/31/2019 [facility] - HYSTERECTOMY - LAMINECTOMY,LUMBAR with spinal fusion - LIGATE FALLOPIAN TUBE - PT ED ORTHOPAEDICS fixation lumbar spine with rods - RECTAL REPAIR W OR W/O MESH - REMOVAL OF OVARY(S) Left - REVISE MEDIAN N/CARPAL TUNNEL SURG - STRESS ECHO 11/10/2019 [facility] - CONRAD 12/31/2019 - TONSILLECTOMY HX - TOTAL HIP REPLACEMENT Left - TOTAL KNEE REPLACEMENT Bilateral FAMILY HISTORY Problem Relation Age of Onset - Heart disease Mother - Hypertension Mother - Hypertension Father - Hypertension Sister - Heart disease Brother Social History Tobacco Use - Smoking status: Never Smoker - Smokeless tobacco: Never Used Substance Use Topics - Alcohol use: Never - Drug use: Never ALLERGIES Allergen Reactions - Codeine Unknown - Lactose Unknown - Lecithin,Egg Unknown - Nitrofurantoin Macr* Unknown - Penicillins Unknown - Sulfa (Sulfonamide * Rash - Tetracyclines Anaphylaxis Physical Examination Vitals:BP 136/72 Pulse 65 Resp 20 Ht 4' 11 (1.50m) Wt 188 lb (85.3kg) SpO2 98% BMI 37.95 kg/(m2). BP w/Orthostatic Vitals Date and Time Orthostatic BP Orthostatic Pulse BP Pulse BP Position BP Site BP Cuff Size 06/15/21 1116 -- -- 136/72 65 Sitting Left Arm -- Peak Flow Date and Time PF Resp 06/15/21 1116 -- 20 Last 2 Encounter Wt Readings: Date: Wt: 06/15/2021 188 lb (85.3 kg) 06/15/2021 188 lb (85.3 kg) Physical Exam Constitutional: Appearance: She is obese. HENT: Head: Normocephalic and atraumatic. Eyes: Pupils: Pupils are equal, round, and reactive to light. Neck: Thyroid: No thyromegaly. Trachea: No tracheal deviation. Cardiovascular: Rate and Rhythm: Normal rate and regular rhythm. Heart sounds: Murmur heard. Comments: Systolic murmur with radiation to carotids, no S2 Pulmonary: Effort: Pulmonary effort is normal. No accessory muscle usage or respiratory distress. Breath sounds: Normal breath sounds. No wheezing, rhonchi or rales. Abdominal: General: There is no distension. Palpations: Abdomen is soft. Tenderness: There is no abdominal tenderness. Musculoskeletal: General: No deformity. Normal range of motion. Cervical back: Normal range of motion and neck supple. (more content not included)... [facility] 06-15-2021 Note HNO ID: [id number] Author: Jewell Rogers APRN.ART HISTORY PROFESSOR Service: ? Author Type: Nurse Practitioner Type: Progress Notes Filed: 06/15/2021 1:59 PM Note Text: [facility] Adult Cardiac Surgery Database Version 4.20 RISK SCORES Procedure: Isolated AVR CALCULATE Risk of Mortality: 3.133% Renal Failure: 2.343% Permanent Stroke: 1.490% Prolonged Ventilation: 8.880% DSW Infection: 0.165% Reoperation: 2.506% Morbidity or Mortality: 13.584% Short Length of Stay: 21.210% Long Length of Stay: 8.277% Jewell Rogers APRN.ART HISTORY PROFESSOR [facility] 06-15-2021 Note HNO ID: [id number] Author: Mike Rondon MD Service: ? Author Type: Physician Type: Progress Notes Filed: 06/15/2021 1:03 PM Note Text: Chief Complaint: Patient presents with: Valvular Heart Disease Rusty Hayes is a 85 year old female with a known PMH of HTN, HLD, dm-2, carotid artery disease, who presents for evaluation of aortic stenosis. She states that over the past 6 months she has become progressively short of breath and has reached a point where it has become on minimal exertion. She has had to limit most of her activities because of this. She denies any true chest pain or pressure denies any orthopnea, paroxysmal nocturnal dyspnea, syncope or presyncope and denies any palpitations. She states that she has had leg swelling for many years now, but she has noticed that it is more noticeable over the past 6 months. She has been followed for a murmur for many years now. PAST MEDICAL HISTORY Diagnosis Date - Aortic valve stenosis - Bronchiectasis (HCC) - Bronchitis - Carotid artery disease (HCC) - CHF (congestive heart failure) ([facility]) - Diabetes mellitus (HCC) - Dyspnea - Essential (primary) hypertension - Infection and inflammatory reaction due to other internal prosthetic devices, implants and grafts, initial encounter ([facility]) - Obesity - Secondary pulmonary arterial hypertension ([facility]) - Spondylisthesis PAST SURGICAL HISTORY Procedure Laterality Date - ANESTHESIA KNEE, ARTHROSCOPIC - APPENDECTOMY - CATARACT EXTRACTION HX - CHG CAPSULOTOMY (YAG LASER) Right eye - ECHOCARDIOGRAM 07/29/2020 [facility] - EXCISION [facility] NEUROMA EACH - HEART CATHETERIZATION 12/31/2019 [facility] - HYSTERECTOMY - LAMINECTOMY,LUMBAR with spinal fusion - LIGATE FALLOPIAN TUBE - PT ED ORTHOPAEDICS fixation lumbar spine with rods - RECTAL REPAIR W OR W/O MESH - REMOVAL OF OVARY(S) Left - REVISE MEDIAN N/CARPAL TUNNEL SURG - STRESS ECHO 11/10/2019 [facility] - CONRAD 12/31/2019 - TONSILLECTOMY HX - TOTAL HIP REPLACEMENT Left - TOTAL KNEE REPLACEMENT Bilateral FAMILY HISTORY Problem Relation Age of Onset - Heart disease Mother - Hypertension Mother - Hypertension Father - Hypertension Sister - Heart disease Brother Social History Tobacco Use - Smoking status: Never Smoker - Smokeless tobacco: Never Used Substance Use Topics - Alcohol use: Never - Drug use: Never Current Outpatient Medications Medication Sig - aspirin 81 mg chewable tablet Take 81 mg by mouth once daily. - hydrALAZINE (APRESOLINE) 25 mg tablet Take 25 mg by mouth three times daily. - metoprolol succinate ER (TOPROL XL) 50 mg 24 hr tablet Take 50 mg by mouth once daily. - Potassium Gluconate 595 mg (99 mg) tab Take 595 mg by mouth once daily. - melatonin 10 mg cap Take 10 mg by mouth daily at bedtime. - Magnesium 250 mg tab Take 250 mg by mouth once daily. - psyllium husk 0.4 gram cap Take 2 capsules by mouth once daily. - White Petrolatum-Mineral Oil (REFRESH LACRI-LUBE) 56.8-42.5 % oint Use 1 application in both eyes as needed. - Otyqhafpeoczq-Mmkpdrcr-Ziimir (MULTIVITAMIN 50 PLUS) tab Take 1 tablet by mouth once daily. - eplerenone (INSPRA) 25 mg tablet Take 25 mg by mouth twice daily. - loratadine (CLARITIN) 10 mg tablet Take 10 mg by mouth once daily. - gabapentin (NEURONTIN) 600 mg tablet Take 600 mg by mouth once daily. - amLODIPine (NORVASC) 5 mg tablet Take 5 mg by mouth once daily. - metFORMIN (GLUCOPHAGE) 500 mg tablet Take 500 mg by mouth twice daily. - famotidine (PEPCID) 20 mg tablet Take 20 mg by mouth once daily. - furosemide (LASIX) 40 mg tablet Take 40 mg by mouth twice daily. - simethicone, chewable (MYLICON) 80 mg chewable tablet Take 80 mg by mouth daily at bedtime. - losartan (COZAAR) 100 mg tablet Take 50 mg by mouth twice daily. - Acetaminophen 500 mg cap Take 1,000 mg by mouth twice daily. - fluticasone (FLONASE) 50 mcg/actuation nasal spray Use 1 Bieber in each nostril twice daily as needed. - carboxymethylcell-glycerin,PF, 0.5-1 % dpet Use 1 Drop in eyes as needed. - mecobalamin, vitamin B12, 1,000 mcg ODT Dissolve 1,000 mcg under the tongue once daily. - vitamin A (AQUASOL A) 10,000 unit capsule Take 10,000 Units by mouth once daily. - albuterol HFA (PROVENTIL HFA) inhaler Inhale 4 Puffs as instructed as directed. - biotin 5,000 mcg ODT Take 5,000 mcg by mouth once daily. - Cholecalciferol, Vitamin D3, 50 mcg (2,000 unit) cap Take 2,000 Units by mouth once daily. - diphenhydrAMINE-Acetaminophen 25-500 mg tab Take 1 tablet by mouth daily at bedtime. - iv contrast (will be provided with radiology test) Inject 1 Each intravenously one time only for 1 dose. No current facility-administered medications for this visit. ALLERGIES Allergen Reactions - Codeine Unknown - Lactose Unknown - Lecithin,Egg Unknown - Nitrofurantoin Macr* Unknown - Penicillins Unknown - Sulfa (Sulfonamide * (more content not included)... [facility] 06-15-2021 Instructions Sarina Kaiser APRN.ART HISTORY PROFESSOR - 06/15/2021 12:25 PM EST Images from the original note were not included. Today, you met with Dr. Aly and Dr. Rizvi to discuss your aortic valve stenosis and current symptoms. We believe you have symptomatic, severe aortic valve stenosis. We are recommendin. Lab Work Today - BMP, CBC, & BNP 2. TAVR Scans (CT Scans of chest, abdomen, and pelvis) on 06/27/2021 - Arrive to Heart and Vascular enrace at 8:30 am - Scans at 9 am - Do not take Lasix or Losartan day of scans - Do not take Metfromin [address] Scans 3. Cardiac Catheterization - Hold lasix and losartan day of your heart catheterization 4. Dental Clearance - Form Provided today Patient information: Aortic stenosis What is aortic stenosis? Aortic stenosis is a condition in which one of the valves in the heart, called the aortic valve, doesn't open fully. The heart valves keep blood flowing in only one direction. When the heart valves work normally, they open all the way to let blood flow through them. Blood flows from a chamber of the heart called the left ventricle, through the aortic valve, into a large blood vessel called the aorta. The aorta carries blood to the rest of the body. In aortic stenosis, the aortic valve gets stuck and does not open fully. This makes the valve opening narrow. When this happens: ?Not as much blood can flow out of the heart to the rest of the body. ?The heart has to work much harder than usual to pump blood to the rest of the body. Over time, this can cause heart problems. Aortic stenosis usually happens in adults. But some people are born with aortic stenosis. What are the symptoms of aortic stenosis? Early on, most people have no symptoms. They usually find out they have aortic stenosis after their doctor or nurse hears a heart murmur on a routine exam. A heart murmur is an extra sound in the heartbeat that doctors or nurses hear when they listen to the heart with a stethoscope. When people do have symptoms, they can have: ?Shortness of breath ?Dizziness or fainting ?Chest pain These symptoms usually happen with physical activity. Let your provider know if you have any of these symptoms. Is there a test for aortic stenosis? Yes. To check for aortic stenosis and see how severe it is, your doctor might order an echocardiogram (or echo ). This test uses sound waves to create a picture of your heart as it beats. It shows the size of the heart chambers, how well the heart is pumping, and how well the heart valves are working. If you have aortic stenosis, your doctor might repeat this test over time to see if your condition changes. To get more information about your heart, your provider might order a test called cardiac catheterization, or cardiac cath. For this, the provider puts a thin tube into a blood vessel in your leg or arm. Then he or she moves the tube up to your heart. When the tube is in your heart or blood vessels, he or she will take measurements. The provider might also put a dye that shows up on an X-ray into the tube. It can show if any of the arteries in your heart are narrowed or blocked. This part of the test is called coronary angiography. Your provider might order a test called an electrocardiogram (ECG or EKG). This test measures the electrical activity in your heart. Some people with aortic stenosis will also have a chest X-ray. A chest X-ray can show the size and shape of your heart. It can also show changes in your lungs from aortic stenosis or other diseases. How is aortic stenosis treated? Treatment depends on your symptoms and how severe your aortic stenosis is. If your aortic stenosis is mild or you have little or no symptoms, you might not need any treatment. But your provider will follow you to see if your aortic stenosis gets worse or you start to have symptoms. If your aortic stenosis is severe or you have a lot of symptoms, you will likely need treatment. Treatment can include: ?Surgery to replace your aortic valve During surgery, the doctor will remove your narrowed valve and replace it with a valve that opens normally. This new valve can be made from metal or from tissue from a pig, cow, or horse. In some cases, a new valve comes from another person. Your doctor will talk with you about the benefits and downsides of each option. ?A procedure to put in a new aortic valve without surgery This is a type of procedure that doctors can do to treat people who can't have valve surgery. It can also be an option for people who are at high risk for problems if they have valve surgery. ?A procedure to open the aortic valve For this procedure, a doctor inflates a balloon in the narrowed aortic valve to try to open it. This procedure is used in children and young adults, because it is helpful in these people. This procedure is usually not as helpful in older adults. ?Medicines There are no medicines to treat aortic stenosis. But if you have other heart conditions besides aortic stenosis, your doctor might prescribe medicines to treat those conditions. He or she will also make sure your blood pressure and cholesterol level are under control. Can I play sports? If your aortic stenosis is mild or you have little or no symptoms, you can probably play sports. But if your aortic stenosis or symptoms are more serious, your doctor might recommend that you limit your physical activity. What if I want to get ? If you want to get , talk with your doctor or nurse. Depending on your aortic stenosis and symptoms, he or she might recommend treating your aortic stenosis before you get . All topics are updated as new evidence becomes available and our peer review process is complete. The content on the [employer] website is not intended nor recommended as a substitute for medical advice, diagnosis, or treatment. Always seek the advice of your own physician or other qualified health childcare worker regarding any medical questions or conditions.. 2016 [employer]. All rights reserved. Topic 52269 Version 5.0 documented in this encounter [facility] 06-15-2021 History of Presen t illness Narrative Chief Complaint: Patient presents with: Valvular Heart Disease Rusty Hayes is a 85 year old female with a known PMH of HTN, HLD, dm-2, carotid artery disease, who presents for evaluation of aortic stenosis. She states that over the past 6 months she has become progressively short of breath and has reached a point where it has become on minimal exertion. She has had to limit most of her activities because of this. She denies any true chest pain or pressure denies any orthopnea, paroxysmal nocturnal dyspnea, syncope or presyncope and denies any palpitations. She states that she has had leg swelling for many years now, but she has noticed that it is more noticeable over the past 6 months. She has been followed for a murmur for many years now. PAST MEDICAL HISTORY Diagnosis Date Aortic valve stenosis Bronchiectasis (HCC) Bronchitis Carotid artery disease (HCC) CHF (congestive heart failure) (HCC) Diabetes mellitus (HCC) Dyspnea Essential (primary) hypertension Infection and inflammatory reaction due to other internal prosthetic devices, implants and grafts, initial encounter ([facility]) Obesity Secondary pulmonary arterial hypertension (HCC) Spondylisthesis PAST SURGICAL HISTORY Procedure Laterality Date ANESTHESIA KNEE, ARTHROSCOPIC APPENDECTOMY CATARACT EXTRACTION HX CHG CAPSULOTOMY (YAG LASER) Right eye ECHOCARDIOGRAM 07/29/2020 [facility] EXCISION [facility] NEUROMA EACH HEART CATHETERIZATION 12/31/2019 [facility] HYSTERECTOMY LAMINECTOMY,LUMBAR with spinal fusion LIGATE FALLOPIAN TUBE PT ED ORTHOPAEDICS fixation lumbar spine with rods RECTAL REPAIR W OR W/O MESH REMOVAL OF OVARY(S) Left REVISE MEDIAN N/CARPAL TUNNEL SURG STRESS ECHO 11/10/2019 [facility] CONRAD 12/31/2019 TONSILLECTOMY HX TOTAL HIP REPLACEMENT Left TOTAL KNEE REPLACEMENT Bilateral FAMILY HISTORY Problem Relation Age of Onset Heart disease Mother Hypertension Mother Hypertension Father Hypertension Sister Heart disease Brother Social History Tobacco Use Smoking status: Never Smoker Smokeless tobacco: Never Used Substance Use Topics Alcohol use: Never Drug use: Never Current Outpatient Medications Medication Sig aspirin 81 mg chewable tablet Take 81 mg by mouth once daily. hydrALAZINE (APRESOLINE) 25 mg tablet Take 25 mg by mouth three times daily. metoprolol succinate ER (TOPROL XL) 50 mg 24 hr tablet Take 50 mg by mouth once daily. Potassium Gluconate 595 mg (99 mg) tab Take 595 mg by mouth once daily. melatonin 10 mg cap Take 10 mg by mouth daily at bedtime. Magnesium 250 mg tab Take 250 mg by mouth once daily. psyllium husk 0.4 gram cap Take 2 capsules by mouth once daily. White Petrolatum-Mineral Oil (REFRESH LACRI-LUBE) 56.8-42.5 % oint Use 1 application in both eyes as needed. Tsgyhgbpxnlsm-Urxlzzco-Ylnkic (MULTIVITAMIN 50 PLUS) tab Take 1 tablet by mouth once daily. eplerenone (INSPRA) 25 mg tablet Take 25 mg by mouth twice daily. loratadine (CLARITIN) 10 mg tablet Take 10 mg by mouth once daily. gabapentin (NEURONTIN) 600 mg tablet Take 600 mg by mouth once daily. amLODIPine (NORVASC) 5 mg tablet Take 5 mg by mouth once daily. metFORMIN (GLUCOPHAGE) 500 mg tablet Take 500 mg by mouth twice daily. famotidine (PEPCID) 20 mg tablet Take 20 mg by mouth once daily. furosemide (LASIX) 40 mg tablet Take 40 mg by mouth twice daily. simethicone, chewable (MYLICON) 80 mg chewable tablet Take 80 mg by mouth daily at bedtime. losartan (COZAAR) 100 mg tablet Take 50 mg by mouth twice daily. Acetaminophen 500 mg cap Take 1,000 mg by mouth twice daily. fluticasone (FLONASE) 50 mcg/actuation nasal spray Use 1 Bieber in each nostril twice daily as needed. carboxymethylcell-glycerin,PF, 0.5-1 % dpet Use 1 Drop in eyes as needed. mecobalamin, vitamin B12, 1,000 mcg ODT Dissolve 1,000 mcg under the tongue once daily. vitamin A (AQUASOL A) 10,000 unit capsule Take 10,000 Units by mouth once daily. albuterol HFA (PROVENTIL HFA) inhaler Inhale 4 Puffs as instructed as directed. biotin 5,000 mcg ODT Take 5,000 mcg by mouth once daily. Cholecalciferol, Vitamin D3, 50 mcg (2,000 unit) cap Take 2,000 Units by mouth once daily. diphenhydrAMINE-Acetaminophen 25-500 mg tab Take 1 tablet by mouth daily at bedtime. iv contrast (will be provided with radiology test) Inject 1 Each intravenously one time only for 1 dose. No current facility-administered medications for this visit. ALLERGIES Allergen Reactions Codeine Unknown Lactose Unknown Lecithin,Egg Unknown Nitrofurantoin Macr* Unknown Penicillins Unknown Sulfa (Sulfonamide * Rash Tetracyclines Anaphylaxis Cardiac Testing TTE 04/2021: Left ventricular systolic function is normal. The estimated ejection fraction is 55 %. Sigmoid septum. The left atrium is moderately enlarged. The right atrium is mildly enlarged. Mild (1+) mitral valve insufficiency. Mild tricuspid valve insufficiency. Trivial aortic valve insufficiency. Right ventricular systolic pressure estimated to be 31 mmHg. Diastolic function is indeterminate. Based upon the spectral Doppler information obtained there appears to be moderate to severe aortic valve stenosis. Heart catheterization done in 2019: Normal coronary angiogram Mild pulmonary HTN Moderate aortic stenosis. Review of Systems: GENERAL: No weight loss, malaise or fevers. HEENT: Negative for frequent or significant headaches NECK: Negative for goiter, pain or significant neck swelling RESPIRATORY: See HPI CARDIOVASCULAR: See HPI GI: No nausea, vomiting, or diarrhea MUSCULOSKELETAL: Has had multiple orthopedic surgeries. SKIN: Negative for lesions, rash, and itching. ENDOCRINE: Negative for cold or heat intolerance, polyuria or polydipsia. NEURO: No history of headaches, syncope, paralysis, seizures or tremors Physical Examination:: BP 136/72 Pulse 65 Resp 20 Ht 4' 11 (1.50m) Wt 188 lb (85.3kg) SpO2 98% BMI 37.95 kg/(m^2). General Appearance: Well appearing, alert, in no acute distress, well-hydrated, well nourished.. Skin: Skin color, texture, turgor normal, no suspicious rashes or lesions. Head: Normocephalic, no masses, lesions, tenderness or abnormalities. Eyes: Anicteric sclera. Pupils are equally round. Extraocular movements are intact. Neck: Supple, no adenopathy; thyroid symmetric, normal size, no bruits. Lungs: Lungs clear to auscultation. No wheezing, rhonchi, rales.. Heart: regular rate and rhythm, grade 3/6 DANIEL at the right upper border, late peaking, absent S2, radiating to both carotids. Peripheral Pulses: Normal. ASSESSMENT/PLAN: 1. Nonrheumatic aortic valve stenosis - ICD9: 424.1, ICD10: I35.0 (primary diagnosis) On exam she appears to have what reflects severe nonrheumatic aortic valve stenosis with a late peaking systolic ejection murmur, absent S2, and radiation to both carotids. On most recent echocardiogram done at [place], she appears to have a valve area that is less than 1 cm , therefore she meets criteria for severe aortic stenosis. She currently meets indication for aortic valve replacement, and based on her age, we would recommend TAVR as a primary option for him as long as her anatomy is suitable for this. This has been explained to her in detail and she expressed understanding and is agreeable. - ECG B/O W INTERP (MED OFFICE) - BASIC METABOLIC PNL - NT PRO BNP - CBC - CTA CHEST (GATED) WO/W IVCON - IV CONTRAST (RADIOLOGY PROCEDURE) - CTA ABD/PEL WO/W IVCON - CARDIAC MARKETING EFFECTIVENESS MANAGER ORDER We will review all of her information once it is completed, and then the decision can be made to move forward. Mike Aly MD Metal Furniture Assembly Supervisor of Internal Medicine [facility] Regional Section of Interventional Cardiology Web Content Manager of Structural Heart Disease [address], [address] [place] [address] Facsimile: [phone] Email: [email or web address] documented in this encounter [facility] 06-15-2021 Nurse Note 5 meter walk test: 1. 9.82 sec 2. 10.00 sec 3. 9.95 sec C/O moderate SOB with exertion. NO CP. No assistive devices. documented in this encounter [facility] Diagnosis Pre-procedural laboratory examination- Primary Valvular heart disease Endocarditis, valve unspecified, unspecified cause [facility] Diagnosis Azotemia- Primary Other abnormal blood chemistry S/P TAVR (transcatheter aortic valve replacement) Heart valve replaced by other means Nonrheumatic aortic (valve) stenosis Primary hypertension Unspecified essential hypertension documented in this encounter [facility] Summary Purpose Family History No Family History Records FoundNo Family History Records FoundNo Family History Records Found Advance Directives No Advanced Directives Records FoundDocuments on File Type Date 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 Advance Directive(s) 07/28/2021 9:44 AM Advance Directive(s) 06/30/2021 8:18 AM Reason for Referral Specialty Diagnoses / Procedures Referred By Contac t Referred To Contact CT IMAGING Diagnoses Nonrheumatic aortic valve stenosis Encounter for preprocedural cardiovascular examination Procedures CTA ABD/PEL WO/W IVCON CT ANGIO ABD&PLVIS CNTRST MTRL W/WO CNTRST Sarina Kidd, COUPON MANIFEST CLERK.ART HISTORY PROFESSOR [address] [place] [address] Ct Imaging Referral ID Status Reason Start Date Expiration Date Visits Requested Visits Authorized [id number] Authorized Auto-Generat ed Referral 06/15/2021 07/15/2022 1 1 Specialty Diagnoses / Procedures Referred By Contac t Referred To Contact CT IMAGING Diagnoses Nonrheumatic aortic valve stenosis Encounter for preprocedural cardiovascular examination Procedures CTA CHEST (GATED) WO/W IVCON CTA CHEST, W/WO CONTRAST Sarina Kaiser, COUPON MANIFEST CLERK.ART HISTORY PROFESSOR [address] [place] [address] Ct Imaging Referral ID Status Reason Start Date Expiration Date Visits Requested Visits Authorized [id number] Authorized Auto-Generat ed Referral 06/15/2021 07/15/2022 1 1 Additional Source Comments INFORMATION SOURCE (unrecogn ized section and content) DATE CREATED AUTHOR AUTHOR'S ORGANIZ ATION 09/20/2021 [facility] DATE CREATED AUTHOR AUTHOR'S ORGANIZ ATION 10/08/2021 [facility] Source Comments (unrecognize d section and content) In the event this informatio n is protected by the Federal Confidentiality of Alcohol and Drug Abuse Patient Records regulations: The Federal rules restrict any use of the information to criminally investigate or prosecute any alcohol or drug abuse patient.[facility] the event this information is protected by the Federal Confidentiality of Alcohol and Drug Abuse Patient Records regulations: The Federal rules restrict any use of the information to criminally investigate or prosecute any alcohol or drug abuse patient.[facility] the event this information is protected by the Federal Confidentiality of Alcohol and Drug Abuse Patient Records regulations: The Federal rules restrict any use of the information to criminally investigate or prosecute any alcohol or drug abuse patient.[facility] the event this information is protected by the Federal Confidentiality of Alcohol and Drug Abuse Patient Records regulations: The Federal rules restrict any use of the information to criminally investigate or prosecute any alcohol or drug abuse patient.[facility] Reason for Visit (unrecogniz ed section and content) Reason Comments Preparations For Procedures Reason Comments CARD Follow Up 1 Month s/p TAVR 1 month follow up Reason Comments Results Care Teams (unrecognized sec tion and content) Chemical Plant Worker Relationship Specialty Start Date End Date New Martinez MD [address] [place] [address] PCP - General Family Practice 05/18/21 Jose Parson [address] [id number] [facility] Cardiology 05/18/21 Chemical Plant Worker Relationship Specialty Start Date End Date New Martinez MD [address] [facility], [place] [id number] PCP - [facility] Practice 05/18/21 Jose Parson [address] [facility] [address] [place] [id number] [facility] Cardiology 05/18/21 Chemical Plant Worker Relationship Specialty Start Date End Date New Martinez MD [address] [facility], [place] [id number] PCP - [facility] Practice 05/18/21 Jose Parson [address] [place] [address] [facility] Cardiology 05/18/21 FOR RECORDS PERTAINING TO PATIENTS WHO ARE OR HAVE BEEN ENROLLED IN A CHEMICAL DEPENDENCY/SUBSTANCEABUSE PROGRAM, SOME INFORMATION MAY BE OMITTED. This clinical summary was aggregated from multiple sources. Caution should be exercised in using it in the provision of clinical care. This summary normalizes information from multiple sources, and as a consequence, information in this document may materially change the coding, format and clinical context of patient data. In addition, data may be omitted in some cases. CLINICAL DECISIONS SHOULD BE BASED ON THE PRIMARY CLINICAL RECORDS. [employer] [facility]. provides no warranty or guarantee of the accuracy or completeness of information in this document.
== END | disposition home or self-care (01) ==
LOC: PSN 12:47
PROVIDERS: PCP Family Medicine; Referring Provider Nurse Practitioner Family; Visit Provider Nurse Practitioner Family
DX: R42 Dizziness and giddiness (principal); R00.1 Bradycardia, unspecified
CPT/HCPCS: 93225; 93226

== ENCOUNTER → 2023-08-21 | Outpatient (CLI) | payer MEDICARE, SELFPAY ==
[2021-12-02 08:29] VITALS: BMI 39.2
--- NOTE | 2023-08-21 13:45 | ECHOCS_ITS ---
Reason For Study: Dyspnea/SOB Procedure This was a 2D Doppler, Color Flow transthoracic echocardiogram. The study was technically difficult. Contrast injection was performed. Exam performed in department. Left Ventricle Normal LV size. Left ventricular systolic function is normal. The left ventricular ejection fraction is 65 %. No regional wall motion abnormalities noted. Right Ventricle Normal RV size. Normal systolic function. Atria Normal left atrium. Normal right atrium. Mitral Valve Normal mitral valve. Tricuspid Valve Normal tricuspid valve. Aortic Valve The aortic valve is not well visualized. Peak aortic valve gradient 36 mmHg. Mean aortic valve gradient 18 mmHg. Bioprosthetic aortic valve. Pulmonic Valve Normal pulmonic valve. Great Vessels Normal aortic root. The pulmonary artery is normal size. Normal inferior vena cava. Pericardium/Pleural No pericardial effusion. Medication 22 gauge I.V. with prn adaptor inserted into right arm. Diluted definity 1.5ml given slow IV push to enhance endocardial definition. MMode/2D Measurements & Calculations LVIDd: 5.1 cm IVSd: 0.96 cm LVOT diam: 2.0 cm LVIDs: 3.4 cm LVPWd: 1.1 cm RVDd: 3.2 cm FS: 34.1 % LVOT area: 3.1 cm2 Ao root diam: 3.2 cm LAV(MOD-bp): 37.0 ml LA A4 area: 16.3 cm2 LAV(MOD-bp) Indexed: 21.3 ml/m2 LAV(MOD-sp2): 34.4 ml LAV(MOD-sp4): 38.6 ml TAPSE: 2.0 cm RA A4 area: 16.2 cm2 Time Measurements MV dec time: 0.31 sec Doppler Measurements & Calculations MV E max jensen: 86.3 cm/sec Lat Peak E' Jensen: 6.3 cm/sec Med Peak E' Jensen: 7.0 cm/sec MV A max jensen: 79.4 cm/sec E/E' lat: 13.8 E/E' med: 12.3 MV E/A: 1.1 MV V2 max: 117.3 cm/sec MV P1/2t max jensen: 117.3 cm/sec Ao V2 max: 297.9 cm/sec MV max P.5 mmHg MV P1/2t: 95.2 msec Ao max P.8 mmHg MV V2 mean: 55.2 cm/sec MV dec slope: 360.8 cm/sec2 Ao V2 mean: 196.6 cm/sec MV mean P.5 mmHg Ao mean P.1 mmHg MV V2 VTI: 36.8 cm MVA(P1/2t): 2.3 cm2 Ao V2 VTI: 62.7 cm MVA(VTI): 2.8 cm2 AV (velocity ratio): 0.52 HERBERT(I,D): 1.6 cm2 HERBERT(V,D): 1.5 cm2 LV V1 max: 142.8 cm/sec SV(LVOT): 102.1 ml PA V2 max: 97.0 cm/sec LV V1 max P.2 mmHg LV V1 mean P.6 mmHg LV V1 mean: 101.4 cm/sec LV V1 VTI: 32.8 cm ECHO/Echo Complete W/ Contrast Interpretation Summary Normal LV size. Left ventricular systolic function is normal. The left ventricular ejection fraction is 65 %. Mean aortic valve gradient 18 mmHg. Bioprosthetic aortic valve. Peak aortic valve gradient 36 mmHg. Compared to the previous the gradients are about the same. Ordering Physician: Chica Morataya Referring Physician: New Martinez Performed By: Bridger Skelton RCS
== END | disposition home or self-care (01) ==
LOC: CVS 13:43
PROVIDERS: PCP Family Medicine; Referring Provider Nurse Practitioner Acute Care; Visit Provider Nurse Practitioner Acute Care
DX: R06.02 Shortness of breath (principal)
CPT/HCPCS: 93306; Q9957; A4216; C8929

== ENCOUNTER → 2023-08-24 | Outpatient (CLI) | payer MEDICARE, SELFPAY ==
[2021-12-02 08:29] VITALS: BMI 39.2
== END | disposition home or self-care (01) ==
LOC: SL 19:56
PROVIDERS: PCP Family Medicine; Referring Provider Nurse Practitioner Acute Care; Visit Provider Nurse Practitioner Acute Care
DX: G47.30 Sleep apnea, unspecified (principal)
CPT/HCPCS: 95811

== ENCOUNTER → 2023-09-06 | Outpatient (CLI) | payer MEDICARE, SELFPAY ==
[2021-12-02 08:29] VITALS: BMI 39.2
== END | disposition home or self-care (01) ==
LOC: SL 14:36
PROVIDERS: PCP Family Medicine; Visit Provider Nurse Practitioner Acute Care
DX: Z00.00 Encounter for general adult medical examination without abnormal findings (principal)

== ENCOUNTER → 2023-11-07 | Outpatient (CLI) | payer MEDICARE, SELFPAY ==
[2021-12-02 08:29] VITALS: BMI 39.2
[2023-11-07 10:58] LABS: AST(SGOT) 19 U/L (15-37); Alanine Aminotransfer ALT/SGPT 20 U/L (13-56); Albumin, Serum 3.7 g/dL (3.2-5.0); Alkaline Phosphatase 141 U/L (45-117); Anion Gap 9 (5-15); BUN 56 mg/dL (7-18); BUN/Creat Ratio 35.9 RATIO (10-20); Calcium,Total 10.3 mg/dL (8.5-10.1); Chloride 105 mmol/L (98-107); Cholesterol 154 mg/dL (200); Creatinine, Serum 1.56 mg/dL (0.55-1.02); EST Glomerular Filtration Rate 33 mL/min (>60); Est Glom Filt Rate - Afr Amer 40 mL/min (>60); Globulin 3.8 g/dL (2.2-4.2); Glucose 136 mg/dL (74-106); High Density Lipoprotein 60 mg/dL; Protein, Total 7.5 g/dL (6.4-8.2); Sodium Level 137 mmol/L (136-145); Triglycerides 123 mg/dL; Very Low Density Lipoprotein 25 mg/dL (5-40)
[2023-11-07 11:56] LABS: Hemoglobin A1c 6.3 % (3.8-5.6)
[2023-11-09 19:39] LABS: Microalbumin,Random Urine 46.2 mg/L (NO RANGE EST.); Microalbumin:Creatinine Ratio 59.4 mg/g CRE (<30 mg/g CRE)
== END | disposition home or self-care (01) ==
PROVIDERS: PCP Family Medicine; Referring Provider Family Medicine; Visit Provider Family Medicine
DX: E11.22 Type 2 diabetes mellitus with diabetic chronic kidney disease (principal); N18.9 Chronic kidney disease, unspecified
CPT/HCPCS: 36415; 80053; 80061; 82043; 82570; 83036

== ENCOUNTER → 2024-01-01 | Outpatient (CLI) | payer MEDICARE, SELFPAY ==
[2021-12-02 08:29] VITALS: BMI 39.2
[2024-01-01 14:58] LABS: BNP,B-Type NATRIURETIC PEPTIDE 70.1 pg/mL (0-100)
[2024-01-01 15:01] LABS: Anion Gap 5 (5-15); BUN 27 mg/dL (7-18); BUN/Creat Ratio 22.1 RATIO (10-20); Calcium,Total 10.5 mg/dL (8.5-10.1); Chloride 105 mmol/L (98-107); Creatinine, Serum 1.22 mg/dL (0.55-1.02); EST Glomerular Filtration Rate 44 mL/min (>60); Est Glom Filt Rate - Afr Amer 53 mL/min (>60); Glucose 184 mg/dL (74-106); Potassium 3.8 mmol/L (3.5-5.1); Sodium Level 138 mmol/L (136-145)
== END | disposition home or self-care (01) ==
LOC: LAB 13:54
PROVIDERS: PCP Family Medicine; Referring Provider Internal Medicine Cardiovascular Disease; Visit Provider Internal Medicine Cardiovascular Disease
DX: I50.32 Chronic diastolic (congestive) heart failure (principal)
CPT/HCPCS: 36415; 80048; 83880

== ENCOUNTER → 2024-01-15 | Outpatient (CLI) | payer MEDICARE, SELFPAY ==
[2021-12-02 08:29] VITALS: BMI 39.2
--- NOTE | 2024-01-15 12:47 | CDU_ITS ---
Reason For Study: Lt Carotid Bruit Rt. Velocities/BP Lt. Velocities/BP Prox CCA 48.6/4.4 cm/sec. Prox CCA 69.5/9.3 cm/sec. Mid CCA 52.5/10.0 cm/sec. Mid CCA 54.8/8.1 cm/sec. Dist CCA 59.1/8.1 cm/sec. Dist CCA 62.1/8.1 cm/sec. Prox ICA 56.0/10.6 cm/sec. Prox ICA 102.6/14.5 cm/sec. Mid ICA 72.0/10.6 cm/sec. Mid ICA 107.8/17.1 cm/sec. Dist ICA 123.0/10.1 cm/sec. Dist ICA 85.9/14.8 cm/sec. Lt. ICA/CCA = 2.3. Lt. ICA/CCA = 2.0. Prox ECA 101.6/6.6 cm/sec. Prox ECA 144.1/6.7 cm/sec. Lt. Vert. 40.6/7.5 cm/sec. Lt. Vert. 31.4/6.9 cm/sec. Right Extracranial There is intimal thickening but no significant atherosclerotic plaque noted in the right common carotid artery. There is heterogeneous, irregular atherosclerotic plaque noted in the right internal carotid artery. There is intimal thickening but no significant atherosclerotic plaque noted in the right external carotid artery. Antegrade flow is noted in the right vertebral artery. Left Extracranial There is intimal thickening but no significant atherosclerotic plaque noted in the left common carotid artery. There is heterogeneous, irregular atherosclerotic plaque noted in the left internal carotid artery. There is heterogeneous, irregular atherosclerotic plaque noted in the left external carotid artery. Antegrade flow is noted in the left vertebral artery. Procedure Carotid Duplex 51450. This is a Carotid Duplex examination using B-mode, color flow and specral Doppler. The exam was diagnostic. Exam performed in department. VL/Carotid Duplex Ultrasound Interpretation Summary Mild (<50%) stenosis right extracranial internal carotid. Mild (<50%) stenosis left extracranial internal carotid. Patent and antegrade vertebrals bilaterally. Ordering Physician: Ray Junior Referring Physician: New Martinez MD Performed By: Kavon Patel RVT
== END | disposition home or self-care (01) ==
LOC: CVS 12:47
PROVIDERS: PCP Family Medicine; Referring Provider Internal Medicine Cardiovascular Disease; Visit Provider Internal Medicine Cardiovascular Disease
DX: R09.89 Other specified symptoms and signs involving the circulatory and respiratory systems (principal)
CPT/HCPCS: 93880

== ENCOUNTER → 2024-05-12 | Outpatient (CLI) | payer MEDICARE, SELFPAY ==
[2021-12-02 08:29] VITALS: BMI 39.2
[2024-05-12 10:26] LABS: Absolute Lymphocyte Count 2.43 X10^3/uL (0.83-4.51); Absolute Neutrophil Count 4.2 X10^3/uL (2.0-7.7); Basophil# 0.08 X10^3/uL; Eosinophil# 0.09 X10^3/uL; Eosinophils% 1.2 % (0-5); Hemoglobin 11.8 g/dL (12.0-15.0); Lymphocyte # 2.43 X10^3/ul (0.83-4.51); Lymphocyte % 31.2 % (19-41); Mean Corp Hgb Conc 31.9 g/dL (32-36); Mean Corpuscular Volume 94.1 fL (81-99); Mean Platelet Vol. 11.3 fl (6.2-12.0); Monocyte# 0.91 X10^3/uL; Monocyte% 11.7 % (0-10); NRBC Flagged by Analyzer 0 % (0-5); Neutrophil # 4.24 X10^3/uL (2.7-7.7); Neutrophil % 54.5 % (47-70); Platelet Count 224 K/mm3 (150-450); RBC Distribution Width CV 14.1 % (11.6-14.6); RBC Distribution Width SD 48.9 fl (35.1-43.9); Red Blood Count 3.93 M/mm3 (4.2-5.4); White Blood Count 7.8 K/mm3 (4.4-11.0)
[2024-05-12 10:52] LABS: ALB/GLOB Ratio 1.1 RATIO (0.9-2.4); AST(SGOT) 18 U/L (15-37); Alanine Aminotransfer ALT/SGPT 19 U/L (13-56); Albumin, Serum 3.8 g/dL (3.2-5.0); Alkaline Phosphatase 149 U/L (45-117); Anion Gap 9 (5-15); BUN 41 mg/dL (7-18); BUN/Creat Ratio 30.4 RATIO (10-20); Calcium,Total 10.6 mg/dL (8.5-10.1); Chloride 106 mmol/L (98-107); Creatinine, Serum 1.35 mg/dL (0.55-1.02); EST Glomerular Filtration Rate 39 mL/min (>60); Est Glom Filt Rate - Afr Amer 47 mL/min (>60); Globulin 3.5 g/dL (2.2-4.2); Glucose 179 mg/dL (74-106); Potassium 3.8 mmol/L (3.5-5.1); Protein, Total 7.3 g/dL (6.4-8.2); Sodium Level 139 mmol/L (136-145)
[2024-05-12 11:37] LABS: Hemoglobin A1c 7.1 % (3.8-5.6)
[2024-05-13 10:44] LABS: Microalbumin:Creatinine Ratio 196.1 mg/g CRE (<30 mg/g CRE)
== END | disposition home or self-care (01) ==
LOC: MTLAB 07:45
PROVIDERS: PCP Family Medicine; Referring Provider Family Medicine; Visit Provider Family Medicine
DX: I13.0 Hypertensive heart and chronic kidney disease with heart failure and stage 1 through stage 4 chronic kidney disease, or unspecified chronic kidney disease (principal); I50.30 Unspecified diastolic (congestive) heart failure; E11.22 Type 2 diabetes mellitus with diabetic chronic kidney disease; N18.30 Chronic kidney disease, stage 3 unspecified
CPT/HCPCS: 36415; 80053; 82043; 82570; 83036; 85025

== ENCOUNTER → 2024-06-02 | Outpatient (CLI) | payer MEDICARE, SELFPAY ==
[2021-12-02 08:29] VITALS: BMI 39.2
--- NOTE | 2024-06-02 11:38 | RAD_ITS ---
STUDY: X-RAY - LEFT HAND, ATTENTION FIRST FINGER REASON FOR EXAM: Female, 88 years old. possible mucous cyst left thumb -- thumb TECHNIQUE: 3 view(s) of the finger were obtained. COMPARISON: None. FINDINGS: Normal metacarpal head. There is moderate degenerative arthrosis of the metacarpophalangeal joint. Normal proximal phalanx. Normal distal phalanx. Normal interphalangeal joint. 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 Electronically Signed: Ronnie Knapp MD at 17:32 EST ,
== END | disposition home or self-care (01) ==
PROVIDERS: PCP Family Medicine; Referring Provider Nurse Practitioner Family; Visit Provider Nurse Practitioner Family
DX: M67.442 Ganglion, left hand (principal)
CPT/HCPCS: 73140

== ENCOUNTER → 2024-09-01 | Outpatient (CLI) | payer MEDICARE, SELFPAY ==
[2021-12-02 08:29] VITALS: BMI 39.2
--- NOTE | 2024-09-01 08:52 | RDU_ITS ---
Reason For Study Reason For Study: Hypertention Right Renal Artery Left Renal Artery Right renal artery ostium 155.2/17.9 Left renal artery ostium 107/13.9 RSV/EDV. PSV/EDV. Right renal artery proximal 172.5/14.5 Left renal artery proximal PSV/EDV PSV/EDV. 114.3/19.4 . Right renal artery mid 143.9/18.9 Left renal artery mid 81/11.3 PSV/EDV . PSV/EDV. Left renal artery distal 99.7/17.5 Right renal artery distal 121.4/10.1 PSV/EDV. PSV/EDV. Left RAR 1.17. Right RAR 1.76. Left Renal Parenchyma Right Renal Parenchyma Left upper pole medulla 22.1/5.1 Upper Pole Medula 40.7/6.9 PSV/EDV. PSV/EDV . Right upper pole medulla EDR 0.2 . Left upper pole medulla EDR 0.2 . Right upper pole medulla R.I. 0.83 . Left upper pole medulla R.I. 0.77 . Upper Stewart Cortx 15.5/2.4 PSV/EDV. UP Cortex 12.2/4 PSV/EDV. Right upper pole cortex EDR 0.2 . Left upper pole cortex EDR 0.3 . Right upper pole cortex R.I. 0.84 . Left upper pole cortex R.I. 0.68 . Right lower Pole medulla 30.4/2.9 Left lower Pole medulla 23.2/5.6 PSV/EDV . PSV/EDV . Right lower pole medulla EDR 0.1 . Left lower pole medulla EDR 0.2 . Right lower pole medulla R.I. 0.91 . Left lower pole medulla R.I. 0.76 . Lower Pole Cortex 19/2.9 PSV/EDV. Lower Pole Cortx 18.8/4.5 PSV/EDV. Right lower pole cortex EDR 0.2 . Left lower pole cortex EDR 0.2 . Right lower pole cortex R.I. 0.85 . Left lower pole cortex R.I. 0.76 . Right Renal Hilar Left Renal Hilar Right Hilar avg 84.6/9.2 PSV/EDV. LT Hilar avg 62.9/10.1 PSV/EDV . Right hilar acceleration time 80 m/sec. Left hilar acceleration time 30 m/sec. Right Renal Dimensions Left Renal Dimensions Right kidney size 9.96 cm . Left kidney size 10.90 cm . Right cortical dimension 1.39 cm . Left cortical dimension 0.99 cm . Aorta Proximal abdominal aorta 1.59 x 1.57 cm . Proximal abdominal aorta peak systolic velocity is 121.6 cm/sec . Distal abdominal aorta 1.32 x 1.30 cm . Distal abdominal aorta peak systolic velocity is 97.9 cm/sec . VL/Renal Artery Duplex Ultrasound Interpretation Summary Right renal artery patent with normal velocities and no evidence of stenosis. Left renal artery patent with normal velocities and no evidence of stenosis. Right renal vein patent. Left renal vein patent. Right kidney normal in size. Left kidney normal in size. Ordering Physician: Dell Asher Referring Physician: New Martinez MD Performed By: Herlinda Sommer RVT
== END | disposition home or self-care (01) ==
LOC: CVS 08:52
PROVIDERS: PCP Family Medicine; Referring Provider Nurse Practitioner Family; Visit Provider Nurse Practitioner Family
DX: I10 Essential (primary) hypertension (principal)
CPT/HCPCS: 93975

== ENCOUNTER → 2024-09-26 | Outpatient (CLI) | payer MEDICARE, SELFPAY ==
[2021-12-02 08:29] VITALS: BMI 39.2
--- NOTE | 2024-09-26 15:20 | CT_ITS ---
PROCEDURE: ABDOMEN W/WO IV CONTRAST 09/26/2024 REASON FOR EXAM: HTN TECHNIQUE: Abdomen CT with intravenous contrast. Multiplanar and multisequence images were obtained. One or more dose reduction techniques were used (e.g., Automated exposure control, adjustment of the mA and/or kV according to patient size, use of iterative reconstruction technique. PATIENT PREPARATION: Per protocol ORAL CONTRAST TYPE: None. AMOUNT: mL FINDINGS: Lung bases: Lung bases are clear. Liver: Normal size. No mass. Gallbladder: Unremarkable. Spleen: Normal size. Pancreas: Normal size without evidence of mass surrounding inflammation or ductal dilation. Adrenals: Unremarkable. Kidneys: Normal renal sizes. No hydronephrosis. Bowel: Unremarkable. Lymph nodes: Unremarkable. Vasculature: Mild amount of calcified plaque in the abdominal aorta. Peritoneum / Retroperitoneum: Unremarkable. Bones: Status post transpedicular fixation in the lumbar spine. CT/Abdomen W/WO IV Contrast IMPRESSION: NO ACUTE FINDINGS AT THE ABDOMEN ON CONTRAST-ENHANCED CT. THIS PROTOCOL DOES N OT INCLUDE THE PELVIS. Reading Location: [id number]
[2024-09-26 15:21] LABS: CREATININE FINGERSTICK 1.2 mg/dL (0.55-1.02)
== END | disposition home or self-care (01) ==
LOC: CT 14:54
PROVIDERS: PCP Family Medicine; Referring Provider Nurse Practitioner Family; Visit Provider Nurse Practitioner Family
DX: I13.0 Hypertensive heart and chronic kidney disease with heart failure and stage 1 through stage 4 chronic kidney disease, or unspecified chronic kidney disease (principal); I50.32 Chronic diastolic (congestive) heart failure; E11.22 Type 2 diabetes mellitus with diabetic chronic kidney disease; N18.32 Chronic kidney disease, stage 3b; I77.9 Disorder of arteries and arterioles, unspecified; Z95.2 Presence of prosthetic heart valve
CPT/HCPCS: 74170; Q9967

== ENCOUNTER → 2024-10-23 | Outpatient (CLI) | payer MEDICARE, SELFPAY ==
[2021-12-02 08:29] VITALS: BMI 39.2
[2024-10-23 16:14] LABS: Anion Gap 12 (5-15); BUN 32 mg/dL (4-19); BUN/Creat Ratio 29.2 RATIO (10-20); Calcium,Total 10.5 mg/dL (7.6-11.0); Carbon Dioxide 21.2 mmol/L (21.0-32.0); Chloride 104 mmol/L (98-108); Creatinine, Serum 1.08 mg/dL (0.70-1.20); EST Glomerular Filtration Rate 49 (>60); Glucose 121 mg/dL (70-99); Potassium 4.6 mmol/L (3.3-5.1); Sodium Level 137 mmol/L (133-145)
== END | disposition home or self-care (01) ==
LOC: MTLAB 13:11
PROVIDERS: PCP Family Medicine; Referring Provider Nurse Practitioner Family; Visit Provider Nurse Practitioner Family
DX: I50.32 Chronic diastolic (congestive) heart failure (principal); Z51.81 Encounter for therapeutic drug level monitoring; Z79.899 Other long term (current) drug therapy
CPT/HCPCS: 36415; 80048